=== PATIENT | male | born 1990 | race Hispanic/Latino ===

== ENCOUNTER 2018-01-17 10:03 | Emergency (ER) | payer MEDICAID ==
[2018-01-17 10:19] VITALS: BP 147/75; PULSE 71; RESP 20; TEMP 98; O2SAT 99
[2018-01-17 14:05] VITALS: BMI 30.2
--- NOTE | 2018-01-17 18:13 | C.PDOC ---
History Of Present Illness Pt was called 3times at different area of ED without answer. Left prior to medical evaluation. Time Seen by Provider: 01/17/18 10:33 Chief Complaint (Nursing): High Blood Pressure Past Medical History Vital Signs: Last Vital Signs Temp 98.0 F 01/17/18 10:14 Pulse 71 01/17/18 10:14 Resp 20 01/17/18 10:14 BP 147/75 01/17/18 10:14 Pulse Ox 99 01/17/18 10:14 - Medical History PMH: HTN Family History: States: Unknown Family Hx - Social History Hx Alcohol Use: Yes Hx Substance Use: Yes - Immunization History Hx Tetanus Toxoid Vaccination: Yes Hx Influenza Vaccination: No Hx Pneumococcal Vaccination: No ED Course And Treatment O2 Sat by Pulse Oximetry: 99 Disposition - Disposition Disposition Time: 10:50 Condition: GOOD - Clinical Impression Clinical Impression: HTN (hypertension)
== END 2018-01-17 10:33 | disposition left against medical advice (07) ==
LOC: C.ER 10:03
DX: Z02.89 Encounter for other administrative examinations (principal); I10 Essential (primary) hypertension

== ENCOUNTER 2018-01-17 13:48 | Inpatient (IN) | payer MEDICAID ==
[2018-01-17 14:05] VITALS: BMI 30.2
--- NOTE | 2018-01-17 14:10 | C.PDOC ---
History Of Present Illness 27 y/o male brought to ED by EMS for evaluation of Suicidal Ideation. At ED patient is refusing to provide additional information and reports he has psychiatric history. Patient admits to daily PCP and Marijuana use. He reports that he has a hx of kidney problems but does not follow-up. Patient currently denies SI/HI or any somatic complaints at this time. Time Seen by Provider: 01/17/18 13:52 Chief Complaint (Nursing): Psychiatric Evaluation History Per: Patient History/Exam Limitations: no limitations Onset/Duration Of Symptoms: Hrs Current Symptoms Are (Timing): Still Present Suicide/Self Injury Attempted (Context): None Modifying Factor(s): Marijuana Associated Symptoms: Suicidal Thoughts Past Medical History Reviewed: Historical Data, Nursing Documentation, Vital Signs Vital Signs: Last Vital Signs Temp 98.1 F 01/17/18 14:03 Pulse 67 01/17/18 14:03 Resp 18 01/17/18 14:03 BP 156/114 H 01/17/18 14:03 Pulse Ox 100 01/17/18 17:49 - Medical History PMH: HTN Surgical History: No Surg Hx Family History: States: No Known Family Hx - Social History Hx Alcohol Use: Yes Hx Substance Use: Yes - Immunization History Hx Tetanus Toxoid Vaccination: Yes Hx Influenza Vaccination: No Hx Pneumococcal Vaccination: No Review Of Systems Review Of Systems: ROS cannot be obtained secondary to pt's inabilty to answer questions. Constitutional: Negative for: Fever, Chills Cardiovascular: Negative for: Chest Pain, Palpitations Respiratory: Negative for: Cough, Shortness of Breath, SOB with Excertion, Wheezing Gastrointestinal: Negative for: Nausea, Vomiting, Abdominal Pain, Diarrhea, Constipation Neurological: Negative for: Weakness, Numbness Psych: Positive for: Suicidal ideation. Negative for: Anxiety, Depression Physical Exam - Physical Exam Appears: Non-toxic, Agitated Skin: Warm, Dry, No Rash Head: Atraumatic, Normacephalic Eye(s): bilateral: Normal Inspection Oral Mucosa: Moist Neck: Normal ROM, Supple Cardiovascular: Rhythm Regular Respiratory: Normal Breath Sounds, No Rales, No Rhonchi, No Wheezing Gastrointestinal/Abdominal: Soft, No Tenderness, No Guarding, No Rebound Extremity: Normal ROM, Capillary Refill (<2 seconds) Neurological/Psych: Oriented x3, Normal Speech, Normal Cognition ED Course And Treatment - Laboratory Results Result Diagrams: 01/17/18 14:25 01/17/18 14:25 O2 Sat by Pulse Oximetry: 100 (RA) Pulse Ox Interpretation: Normal Medical Decision Making Medical Decision Making: Patient placed on 1:1 for suicidal ideation Plan: Medical clearance, Crisis consult pending EKG shows NSR at 66bpm with non-specific st changes. Creatinine elevated. GFR: 21 5:10PM Records reviewed from [facility] where patient signed out AMA on 01/12. Bun/creatinine of 38/3.9 then. He signed out AMA prior to full workup. U/s showed chronic kidney disease. Will need medical admission for renal failure with psych on consult. Still pending UA. 5:58PM Resident at bedside evaluating. Disposition - Disposition Disposition: HOSPITALIZED Disposition Time: 17:11 Condition: FAIR - Clinical Impression Clinical Impression: Suicidal ideation, Renal failure - Scribe Statement The provider has reviewed the documentation as recorded by the Scribshaun Wilson All medical record entries made by the Tishaibshaun were at my direction and personally dictated by me. I have reviewed the chart and agree that the record accurately reflects my personal performance of the history, physical exam, medical decision making, and the department course for this patient. I have also personally directed, reviewed, and agree with the discharge instructions and disposition.
--- NOTE | 2018-01-17 14:23 | RAD ---
HISTORY: psych COMPARISON: No prior. FINDINGS: LUNGS: Poor inspiration with low lung volumes, crowded bronchovascular markings and mild bibasilar atelectasis. PLEURA: No significant pleural effusion identified, no pneumothorax apparent. CARDIOVASCULAR: Cardiomegaly. OSSEOUS STRUCTURES: No significant abnormalities. VISUALIZED UPPER ABDOMEN: Normal. OTHER FINDINGS: None. IMPRESSION: Poor inspiration with low lung volumes, crowded bronchovascular markings and mild bibasilar atelectasis.
[2018-01-17 14:30] LABS: BASO # 0.1 K/uL (0.0-0.2); BASO % 1.1 % (0.0-2.0); EOS # 0.3 K/uL (0.0-0.7); EOS % 4.3 % (0.0-4.0); HEMOGLOBIN 13.1 g/dL (12.0-18.0); LYMPH # 2.3 K/uL (1.0-4.3); LYMPH % 30.4 % (20.0-40.0); MEAN CELL VOLUME 89.7 fL (80.0-94.0); MEAN CORPUSCULAR HEMOGLOBIN 30.2 pg (27.0-31.0); MEAN CORPUSCULAR HGB CONC 33.7 g/dL (33.0-37.0); MEAN PLATELET VOLUME 10.9 fL (7.2-11.7); MONO # 0.6 K/uL (0.0-0.8); MONO % 8.1 % (0.0-10.0); NEUT # 4.2 K/uL (1.8-7.0); NEUT % 56.1 % (50.0-75.0); RBC 4.33 Mil/uL (4.40-5.90); RED CELL DISTRIBUTION WIDTH 13.1 % (11.5-14.5); WHITE BLOOD COUNT 7.6 K/uL (4.8-10.8)
[2018-01-17 14:45] LABS: ALBUMIN 3.5 g/dL (3.5-5.0); BLOOD UREA NITROGEN 42 mg/dL (9-20); CALCIUM 8.8 mg/dl (8.6-10.4); GFR AFRICAN-AMERICAN 25; GFR NON-AFRICAN AMERICAN 21
[2018-01-17 14:46] LABS: ALT/SGPT 29 U/L (21-72); AST/SGOT 29 U/L (17-59)
[2018-01-17] MEDS: Sodium Chloride 0.9% 1,000 ML IV SCH (19:00)
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
[2018-01-17 23:24] VITALS: O2SAT 98
[2018-01-18] MEDS: Sodium Chloride 0.9% 1,000 ML IV SCH ×2 (04:00→14:11)
[2018-01-18 07:28] LABS: GRANULAR CAST 6 /lpf (0-1); URINE BILIRUBIN NEGATIVE (NEGATIVE); URINE BLOOD 1+ (NEGATIVE); URINE CLARITY Clear (Clear); URINE COLOR Straw (YELLOW); URINE GLUCOSE (UA) 1+ mg/dL (Normal); URINE LEUKOCYTE ESTERASE NEG Leu/uL (Negative); URINE PROTEIN 3+ mg/dL (NEGATIVE); URINE UROBILINOGEN NORMAL mg/dL (0.2-1.0)
--- NOTE | 2018-01-18 09:39 | CP.PCM.PCO ---
Physician Communication Note - Physician Communication Note Physician Communication Note: Pt refused to wake up at 8:45 am. Entry Level Civil Engineer will return.
[2018-01-18 10:10] VITALS: RESP 20
--- NOTE | 2018-01-18 12:13 | PCM.PSYCH ---
Initial Psychiatric Evaluation - Initial Psychiatric Evaluation Type of Admission: Voluntary Legal Status: Capacity Chief Complaint (in patient's own words): "Not well" History of Present Illness and Precipitating Events: Note: This patient was admitted to [facility] on 01/14/18, and he signed out AMA. Medical records is informed to combining the charts. The patient is seen this morning, all medical records reviewed and case discussed Consultation was requested for patient's psychiatric history and behavior. He is a poor historian; very irate, uncooperative, at times hostile and evasive. However, he is calmer than yesterday as he was able to complete the assessment and he even agreed with blood work which she had refused this morning. 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 The patient was recently at [facility] where he was diagnosed with kidney failure and he was also having psychiatric problems; agitation, suicidal ideation and heavy PCP and cannabis use. He was screened by Medical Center when he asked to leave AMA and rejected by the Medical Center and he left. According to his grandmother, he came home and continued to use drugs and got more paranoid and agitated. He threatened suicide and she called 911 again and he was brought in to [facility]. Here, the pt was agitated, argumentative, refused some treatments but admitted to medicine. He also voiced SI again and placed on suicide watch 1:1. Please see chart for details This morning, he was in a slightly better mood and denied SI, however, he admitted that he was hearing voices before he came, and is still feeling depressed. He plans to "look for another job" when he gets back home and denies any plans/intentions to hurt himself. He admits to drinking alcohol, "my grandmother's alcohol" on and off (denies wdw sx) but smokes PCP and MJ "a lot" and seems to minimize their risks. He was able to hear out from the automatic typewriter inspector. He is still somewhat paranoid and angry but agreed to take ativan and seroquel to deal with that. Past psych hx: Admitted to [facility] previously and another hospital in the past. He has atempted suicide once by hanging but he reprted thathis intention was not to . Long hx of PCP, Mj and sometimes other drug use. Medical hx: Obese, high cholesterol, recent kidney failre (he was taking "many" naproxens for "pain") Family psych hx: unknown Current Medications: Active Medications Generic Name Dose Route Start Last Admin Trade Name Freq PRN Reason Stop Dose Admin Amlodipine Besylate 5 mg 01/18/18 10:00 01/18/18 10:14 Norvasc PO 5 mg DAILY HERNAN Administration Haloperidol 5 mg 01/17/18 22:45 Haldol PO Q4H PRN Agitation Haloperidol Lactate 5 mg 01/17/18 19:09 Haldol IM ONCE PRN Agitation Haloperidol Lactate 5 mg 01/17/18 22:30 Haldol IM Q4H PRN severe agitation Sodium Chloride 1,000 mls @ 100 mls/hr 01/17/18 18:00 01/18/18 04:00 Sodium Chloride 0.9% IV Not Given .Q10H HERNAN Lorazepam 2 mg 01/17/18 22:45 Ativan PO Q4H PRN severe anxiety Lorazepam 1 mg 01/18/18 12:00 Ativan PO TID HERNAN Pneumococcal Polyvalent Vaccine 0.5 ml 01/19/18 10:00 Pneumovax 23 Vaccine IM 01/19/18 10:01 .ONCE ONE Quetiapine Fumarate 50 mg 01/18/18 12:00 Seroquel PO TID HERNAN Quetiapine Fumarate 100 mg 01/18/18 22:00 Seroquel PO HS HERNAN Past Psychiatric History - Past Psychiatric History Previous Treatment History: Inpatient Pertinent Medical Hx (Current Medical&Sleep Prob, Allergies): Allergies Allergy/AdvReac Type Severity Reaction Status Date / Time No Known Allergies Allergy Unverified 01/17/18 10:19 Unobtainable 01/17/18 Review of Systems - Neurological Neurological: UNREMARKABLE - Psychiatric Psychiatric: Abnormal Sleep Pattern, Anxiety, Auditory Hallucinations, Behavioral Changes, Depression, Difficulty Concentrating, Irritability, Mood Swings, Paranoia. absent: Homicidal Ideation, Suicidal Ideation Mental Status Examination - Personal Presentation Personal Presentation: Looks older than stated age (very irritable, at times hostile, obese, tattooed male) - Affect Affect: Other (intense at times) - Motor Activity Motor Activity: Psychomotor Agitation (mild) - Reliability in Providing Information Reliability in Providing Information: Fair - Speech Speech: Organized - Mood Mood: Depressed, Anxious, Other (irate) - Formal Thought Process Formal Thought Process: Hallucinations (vague), Paranoia - Cognitive Functions Orientation: Person, Place, Situation, Time Sensorium: Drowsy Attention/Concentration: Easily distracted Abstract Thinking: [place] Estimate of Intelligence: Average Judgement: Imparied, as evidence by: Poor judgement (refusing blood work, vitals ) Memory: Recent intact, as evidence by: Ability to recall events of the day, Remote impaired as evidenced by: Inability to recall sig life events - Risk Risk: Diminished functioning - Strength & Assets Inventory Strength & Assets Inventory: Family support - Limitations Limitations: Other DSM 5 DX - DSM 5 DSM 5 Diagnosis: PCP-induced mood disorder PCP use d/o- severe Cannabis use d/o- severe Borderline/Antisocial Personality d/o Major Depressive d/o - Recommended/Plan of Treatment Treatment Recommendations and Plan of Treatment: Ativan for PCP-induced agitation, irritability and anxiety Seroquel for hallucinations, agitation and depressive sxs Continue 1:1 for now due to pt's recent elevated risk of suicide, he may be off 1:1 end of today or tomorrow AM He has the capacity to make medical decisions, i.e. refusing blood work, but he agreed to try ("I hate needles" he said, and has poor veins) - Nurse is informed to get a better flebotomist if possible. Risks of non-compliance discussed Support and psychoed given May need to be transferred to psych if he agrees and when he is medically cleared. If he is discharged, he can attend [facility] in [place] 34 min
[2018-01-18 14:28] LABS: BASO # 0.1 K/uL (0.0-0.2); BASO % 0.7 % (0.0-2.0); EOS # 0.3 K/uL (0.0-0.7); EOS % 3.7 % (0.0-4.0); HEMOGLOBIN 12.6 g/dL (12.0-18.0); LYMPH # 1.8 K/uL (1.0-4.3); LYMPH % 24.9 % (20.0-40.0); MEAN CELL VOLUME 89.7 fL (80.0-94.0); MEAN CORPUSCULAR HEMOGLOBIN 30.6 pg (27.0-31.0); MEAN CORPUSCULAR HGB CONC 34.1 g/dL (33.0-37.0); MEAN PLATELET VOLUME 11.2 fL (7.2-11.7); MONO # 0.5 K/uL (0.0-0.8); MONO % 7.7 % (0.0-10.0); NEUT # 4.4 K/uL (1.8-7.0); RBC 4.13 Mil/uL (4.40-5.90); RED CELL DISTRIBUTION WIDTH 13.4 % (11.5-14.5)
[2018-01-18 14:42] LABS: ALBUMIN 3.4 g/dL (3.5-5.0); CALCIUM 8.5 mg/dl (8.6-10.4)
--- NOTE | 2018-01-18 16:01 | CP.PCM.PN ---
Subjective - Date & Time of Evaluation Date of Evaluation: 01/18/18 Time of Evaluation: 15:57 - Subjective Subjective: Patient seen and examined at bedside. Refuses to speak with me refuses treatment at this time Dr. Crane for psych saw patient and ok with transferring patient to psych Dr. Newman saw patient and states ok with outpatient follow up in his office Medically stable for transfer to psych Objective - Vital Signs/Intake and Output Vital Signs (last 24 hours): Temp Pulse Resp BP Pulse Ox 98.5 F 62 20 167/98 H 98 01/18/18 08:00 01/18/18 08:00 01/18/18 08:00 01/18/18 08:00 01/18/18 08:00 Intake and Output: 01/18/18 01/18/18 06:59 18:59 Intake Total 150 Balance 150 - Medications Medications: Current Medications Amlodipine Besylate (Norvasc) 5 mg PO DAILY [facility] Last Admin: 01/18/18 10:14 Dose: 5 mg Haloperidol (Haldol) 5 mg PO Q4H PRN PRN Reason: Agitation Haloperidol Lactate (Haldol) 5 mg IM ONCE PRN PRN Reason: Agitation Haloperidol Lactate (Haldol) 5 mg IM Q4H PRN PRN Reason: severe agitation Sodium Chloride (Sodium Chloride 0.9%) 1,000 mls @ 100 mls/hr IV .Q10H [facility] Last Admin: 01/18/18 14:11 Dose: Not Given Lorazepam (Ativan) 2 mg PO Q4H PRN PRN Reason: severe anxiety Lorazepam (Ativan) 1 mg PO TID [facility] Last Admin: 01/18/18 14:09 Dose: 1 mg Pneumococcal Polyvalent Vaccine (Pneumovax 23 Vaccine) 0.5 ml IM .ONCE ONE Stop: 01/19/18 10:01 Quetiapine Fumarate (Seroquel) 50 mg PO TID [facility] Last Admin: 01/18/18 14:09 Dose: 50 mg Quetiapine Fumarate (Seroquel) 100 mg PO HS [facility] - Labs Labs: 01/18/18 14:14 01/18/18 14:14 - Additional Findings Additional findings: did not allow for physical exam Assessment and Plan (1) Phencyclidine-induced mood disorder Status: Acute (2) Phencyclidine (PCP) use disorder, moderate Status: Acute (3) Cannabis use disorder, mild, abuse Status: Acute (4) Major depressive disorder Status: Acute (5) Borderline personality disorder Status: Acute (6) Antisocial personality disorder Status: Acute
[2018-01-18 16:19] VITALS: BP 128/80; PULSE 59; TEMP 98.6
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
--- NOTE | 2018-01-19 02:05 | CON ---
DATE: 01/18/2018. NEPHROLOGY CONSULTATION HISTORY OF PRESENT ILLNESS: The patient is a 27-year-old male with past medical history of hypertension, CKD (recently diagnosed), ADHD, longstanding substance abuse presented today after having suicidal ideation; Nephrology being consulted for renal insufficiency. Upon interviewing the patient as to why he presented, he responds by saying to the effect that same reason as always; otherwise the patient's main complaint right now is left foot particularly his big toe pain; the patient otherwise denies any shortness of breath, no nausea, vomiting or diarrhea; history is otherwise difficult to obtain from patient. PAST MEDICAL HISTORY: As above. The patient admitted to [facility] last week after presenting with left upper arm pain; found to have advanced renal insufficiency; complete workup was not done as the patient signed AMA. FAMILY HISTORY: Hypertension. SOCIAL HISTORY: Using PCP since age 14. REVIEW OF SYSTEMS: Limited. The patient is a poor historian. PHYSICAL EXAMINATION: VITAL SIGNS: Blood pressure this morning 167/98, heart rate 62, respirations 20, temperature 98.5, O2 saturation 98% on room air. GENERAL: No distress. Conversing coherently in full sentences. HEENT: Large neck circumference; otherwise no cervical lymphadenopathy. Moist mucous membranes. Nonicteric. RESPIRATORY: Lungs clear to auscultation bilaterally. No rales or rhonchi. No wheezes. CARDIOVASCULAR: Heart sounds S1, S2 normal. No murmurs or gallops. No rubs. GI: Abdomen is soft, nontender and nondistended. : No bladder dysfunction. EXTREMITIES: No leg edema. MUSCULOSKELETAL: Left large toe pain with no obvious swelling or erythema. SKIN: Warm. No cyanosis. Multiple tattoos. PSYCHIATRIC: Not agitated. NEUROLOGIC: No asterixis. LABORATORY DATA: Today CBC; WBC 7.0, hemoglobin 12.6, hematocrit 37.0, platelets 211. Chemistry panel; sodium 139, potassium 4.6, chloride 103, bicarbonate 24, BUN 38, creatinine 3.1 decreased from 4.0 last week, calcium 8.5, phosphorus 3.8, albumin 3.4, TSH 0.20, free T4 0.97. UA 3+ protein, 1+ blood, 10 rbcs per high power field, granular cast 6. Renal ultrasound from last week showing increased echogenicity bilaterally of renal cortices. ASSESSMENT AND PLAN: 1. Acute kidney injury on chronic kidney disease. The patient with advanced chronic kidney disease of unclear etiology, proteinuric kidney disease with 3.8 gm albumin on albumin creatinine ratio; further serologic workup currently in progress; may be consistent with nephrotic syndrome as the patient has hypoalbuminemia and hyperlipidemia; serum creatinine this afternoon improved to 3.1, which is decreased from 4.1 seen on admission last week; UA making mention of granular cast; therefore, it is possible that the patient may have component of acute tubular necrosis that is causing acute kidney injury; however, renal ultrasound is clearly indicative of advanced chronic kidney disease. The patient needs renal biopsy; however, given the patient repeated noncompliance with followup and lack of cooperation for even blood testing pursuing biopsy does not seem feasible at this time; the patient advised that he needs to follow up in our clinic. 2. Hypertension, blood pressure fluctuating, currently on amlodipine 5 mg daily, continue the same, ideally should be on KARLO blockade; however, in light of the patient's lack of compliance with followup and need to monitor potassium levels, we will hold off for now. 3. Nephrotic syndrome, see above. A 24 hours urine protein collection in progress; see above regarding KARLO blockade; needs to be on statin as well; however, in light of persistent phencyclidine use, which itself can cause rhabdomyolysis, we will hold off on giving statin, which can also elevate CK level. 4. Substance abuse. The patient counseled on harms of phencyclidine use; needs extensive social help in this regard; as long as the patient continues current drug abuse pattern, renal workup is likely futile as the patient will not comply with immunosupressive therapy that may be needed. Thank you for this referral. We will continue to follow the patient. Adams Salas MD
[2018-01-19] MEDS ORDERED: Pneumococcal 23-Valent Vaccine IM ONE (10:00)
[2018-01-21 16:46] LABS: PROTEINASE-3 <1.0 AI (<1.0)
[2018-01-22 00:34] LABS: ALBUMIN (PEP) 3.1 g/dL (3.8-4.8); ALPHA-1-GLOBULIN (PEP) 0.3 g/dL (0.2-0.3)
== END 2018-01-18 20:09 | disposition home or self-care (01) | DRG 426 ==
LOC: C.ER 13:48 → C.9E 17:15 → C.3T 17:57
PROVIDERS: ADMIT Family Medicine; ATTEND Family Medicine
DX: F32.9 Major depressive disorder, single episode, unspecified (principal); N18.4 Chronic kidney disease, stage 4 (severe); F16.10 Hallucinogen abuse, uncomplicated; F60.2 Antisocial personality disorder; F12.10 Cannabis abuse, uncomplicated; E78.5 Hyperlipidemia, unspecified; F60.3 Borderline personality disorder; I12.9 Hypertensive chronic kidney disease with stage 1 through stage 4 chronic kidney disease, or unspecified chronic kidney disease; F90.9 Attention-deficit hyperactivity disorder, unspecified type; Z91.19 Patient's noncompliance with other medical treatment and regimen

== ENCOUNTER 2018-07-11 14:55 | Inpatient (IN) | payer MEDICAID ==
[2018-07-11 14:55] VITALS: BMI 30.2
--- NOTE | 2018-07-11 16:04 | C.PDOC ---
History Of Present Illness 28yo M with PMH CKD, HTN, ADHD, PCP use, marijuana use, EtOH use presents today for RUQ and chest pain. Both happened simultaneously and awoke him from his sleep this AM at 6. The RUQ pain at worse is 10/10. Episodes last a bout an hour at a time and come back after 10 min. It's a stabbing pain that radiates to his side, without radiation to the back. The CP is a 6/10 but localizes to the epigastric region. Poor historian as when asked during the same interview, retracts radiation to the back. The pressure is assoc with SOB, KISER, tinnitus, blurry vision, double vision, sweating. Hasn't taken any antihypertensive medication. Last PCP use was this AM prior to coming to hospital. Last BM this AM - formed. Cannot recall last meal. Admits daily PCP use (a jar), daily EtOH (1 gallon of Heineken), daily tobacco (1 ppd). Denies doing anything out of the norm for the last week. Denies current SI/HI, AVH. FamHx: HTN All: Fish - edema Hx of signing out AMA from [facility] earlier this year <Snow Maldonado - Last Filed: 07/11/18 17:04> <Snow Maldonado - Last Filed: 07/11/18 17:04> <Sandra Mohan - Last Filed: 07/11/18 18:47> Time Seen by Provider: 07/11/18 15:25 Chief Complaint (Nursing): Chest Pain Past Medical History Vital Signs: Last Vital Signs Temp 98 F 07/11/18 15:03 Pulse 79 07/11/18 15:03 Resp 20 07/11/18 15:03 BP 193/149 H 07/11/18 15:03 Pulse Ox 98 07/11/18 15:03 - Medical History PMH: HTN - Social History Hx Tobacco Use: Yes Hx Alcohol Use: Yes Hx Substance Use: Yes - Immunization History Hx Tetanus Toxoid Vaccination: Yes Hx Influenza Vaccination: No Hx Pneumococcal Vaccination: No <Snow Maldonado - Last Filed: 07/11/18 17:04> Vital Signs: Last Vital Signs Temp 98 F 07/11/18 15:03 Pulse 76 07/11/18 15:33 Resp 21 07/11/18 15:33 BP 187/118 H 07/11/18 15:33 Pulse Ox 98 07/11/18 16:54 Family History: States: No Known Family Hx <Sandra Mohan - Last Filed: 07/11/18 18:47> Review Of Systems Except As Marked, All Systems Reviewed And Found Negative. Constitutional: Positive for: Chills, Sweats. Negative for: Fever Eyes: Positive for: Vision Change Cardiovascular: Positive for: Chest Pain, Edema (bilateral pedal edema, does not extend to ankles). Negative for: Palpitations Respiratory: Positive for: Shortness of Breath. Negative for: Hemoptysis, Pleuritic Pain, Wheezing Gastrointestinal: Positive for: Abdominal Pain. Negative for: Nausea, Vomiting, Diarrhea, Constipation, Melena, Hematochezia Genitourinary: Positive for: Dysuria. Negative for: Frequency, Incontinence, Hematuria Psych: Negative for: Suicidal ideation <Snow Maldonado - Last Filed: 07/11/18 17:04> Physical Exam - Physical Exam Appears: Toxic, Unkempt Skin: Dry, Pale Head: Atraumatic, Normacephalic Eye(s): bilateral: PERRL, EOMI Neck: Trachea Midline Cardiovascular: Rhythm Regular, Rhythm Irregular, No Murmur Respiratory: Normal Breath Sounds, No Rales, No Rhonchi, No Wheezing Gastrointestinal/Abdominal: Bowel Sounds, Soft, Tenderness (TTP RUQ), Distention, Guarding, No Rebound, Other (obese) Pulses: Left Radial: Normal, Right Radial: Normal, Left Dorsalis Pedis: Normal, Right Dorsalis Pedis: Normal DTR: Bicep (R): 2+, Bicep (L): 2+, Knee (R): 2+, Knee (L): 2+ Neurological/Psych: Oriented x3, No Normal Cognition (under the influence, flight of ideas), Slow To Respond With Command Disoriented To: Time <Snow Maldonado - Last Filed: 07/11/18 17:04> ED Course And Treatment - Laboratory Results Result Diagrams: 07/11/18 16:15 07/11/18 16:15 O2 Sat by Pulse Oximetry: 98 <Snow Maldonado - Last Filed: 07/11/18 17:04> - Laboratory Results Result Diagrams: 07/11/18 16:15 07/11/18 16:15 <Sandra Mohan - Last Filed: 07/11/18 18:47> Medical Decision Making Medical Decision Making: CBC, CMP, lipase, TIGIST anemia - Hgb 9.4 (decreased from d/c 12.6) metabolic acidosis - anion gap 22 BUN/Cr - 84/9.3 (elevated from d/c 38/3.1) UDS, UA EKG - new T wave inversions on III, aVF CXR PA/L US Abd Toradol for pain control Pepcid for GI ppx Lisinopril for HTN will hold IVF until HTN controlled Re-eval: BP 152/85, resting comfortably, snoring s/p US <Snow Maldonado - Last Filed: 07/11/18 17:04> Medical Decision Making: Patient seen by the resident and then evaluated by me. Patient presenting with epigastric pain. Epigastric tenderness on exam. U/s shows Echogenic liver may be seen in setting of hepatic parenchymal disease or fatty infiltration. 0.8 x 0.7 x 0.9 cm indeterminate echogenic lesion, right hepatic lobe. Echogenic right renal parenchyma, may be seen in the setting of medical renal disease. 1.2 x 0.9 x 1.0 cm lower pole renal cyst. Labs show worsening renal function. EKG shows new t wave inversions in III, AVF. Patient is non-compliant with BP medication. BP improved after ED dose. Will need admission under Dr. Hendrickson with nephrology consult. <Sandra Mohan - Last Filed: 07/11/18 18:47> Disposition <Snow Maldonado - Last Filed: 07/11/18 17:04> - Disposition Disposition Time: 17:53 <Sandra Mohan - Last Filed: 07/11/18 18:47> - Disposition Disposition: HOSPITALIZED Condition: FAIR - Clinical Impression Clinical Impression: Anemia, MK (acute kidney injury), Acute electrocardiogram changes, Hypertension - PA / APPLIED BEHAVIOR SPECIALIST / Resident Statement / has reviewed & agrees with the documentation as recorded. / has examined the patient and agrees with the treatment plan. <Snow Maldonado - Last Filed: 07/11/18 17:04>
[2018-07-11 16:18] LABS: BASO # 0.1 K/uL (0.0-0.2); BASO % 1.3 % (0.0-2.0); EOS # 0.3 K/uL (0.0-0.7); EOS % 3.9 % (0.0-4.0); HEMOGLOBIN 9.4 g/dL (12.0-18.0); LYMPH # 2.1 K/uL (1.0-4.3); MEAN CELL VOLUME 88.5 fL (80.0-94.0); MEAN CORPUSCULAR HEMOGLOBIN 31.6 pg (27.0-31.0); MEAN CORPUSCULAR HGB CONC 35.7 g/dL (33.0-37.0); MEAN PLATELET VOLUME 9.4 fL (7.2-11.7); MONO # 0.8 K/uL (0.0-0.8); MONO % 8.8 % (0.0-10.0); NEUT # 5.3 K/uL (1.8-7.0); NRBC % 0.1 % (0.0-2.0); RBC 2.99 Mil/uL (4.40-5.90); RED CELL DISTRIBUTION WIDTH 13.4 % (11.5-14.5); WHITE BLOOD COUNT 8.6 K/uL (4.8-10.8)
[2018-07-11 16:41] LABS: CK-MB 0.82 ng/mL (0.0-3.38)
[2018-07-11 16:47] LABS: ALB/GLOB RATIO 1.2 (1.0-2.1); ALBUMIN 3.9 g/dL (3.5-5.0); ALT/SGPT 20 U/L (21-72); AST/SGOT 8 U/L (17-59); BLOOD UREA NITROGEN 84 mg/dL (9-20); CALCIUM 7.4 mg/dl (8.6-10.4); GFR NON-AFRICAN AMERICAN 7; LIPASE 132 U/L (23-300)
--- NOTE | 2018-07-11 17:07 | US ---
Date of service: 07/11/2018 HISTORY: RUQ pain COMPARISON: None available TECHNIQUE: Sonographic evaluation of the right upper quadrant of the abdomen. FINDINGS: LIVER: Measures 16.7 cm in length. Echogenic liver may be seen in setting of hepatic parenchymal disease or fatty infiltration. 0.8 x 0.7 x 0.9 cm echogenic lesion, right hepatic lobe. The main portal vein appears patent with normal directional flow. No intrahepatic bile duct dilatation. GALLBLADDER: No gallstones. No gallbladder wall thickening or pericholecystic edema. Negative sonographic Rea's sign as assessed by the clinic coordinator. COMMON BILE DUCT: Measures 3 mm. PANCREAS: Not well-visualized. RIGHT KIDNEY: Measures 9.2 x 4.9 x 4.7 cm. Echogenic renal parenchyma. No obstructing calculus or hydronephrosis identified. 1.2 x 0.9 x 1.0 cm lower pole renal cyst. AORTA: Limited visualization appears grossly unremarkable. IVC: Limited visualization appears grossly unremarkable. OTHER FINDINGS: None . IMPRESSION: Echogenic liver may be seen in setting of hepatic parenchymal disease or fatty infiltration. 0.8 x 0.7 x 0.9 cm indeterminate echogenic lesion, right hepatic lobe. Echogenic right renal parenchyma, may be seen in the setting of medical renal disease. 1.2 x 0.9 x 1.0 cm lower pole renal cyst.
--- NOTE | 2018-07-11 17:40 | RAD ---
Date of service: 07/11/2018 HISTORY: CP, SOB COMPARISON: 01/17/2018 TECHNIQUE: Chest PA and lateral FINDINGS: LUNGS: No active pulmonary disease. PLEURA: No significant pleural effusion identified. No pneumothorax apparent. CARDIOVASCULAR: Normal. OSSEOUS STRUCTURES: No significant abnormalities. VISUALIZED UPPER ABDOMEN: Normal. OTHER FINDINGS: None. IMPRESSION: No acute cardiopulmonary pathology. No interval worrisome pathology noted
[2018-07-11 18:41] LABS: URINE AMORPHOUS SEDIMENT RARE /ul (<OCC); URINE BACTERIA OCC (<OCC); URINE BILIRUBIN NEGATIVE (NEGATIVE); URINE BLOOD 1+ (NEGATIVE); URINE CLARITY Clear (Clear); URINE COLOR Yellow (YELLOW); URINE GLUCOSE (UA) 1+ mg/dL (Normal); URINE LEUKOCYTE ESTERASE NEG Leu/uL (Negative); URINE PROTEIN 3+ mg/dL (NEGATIVE); URINE UROBILINOGEN NORMAL mg/dL (0.2-1.0)
[2018-07-11 18:52] LABS: BARBITURATES, UR NEGATIVE (NEGATIVE); BENZODIAZEPINES, UR NEGATIVE (NEGATIVE); OPIATES, UR NEGATIVE (NEGATIVE); PHENCYCLIDINE, UR POSITIVE (NEGATIVE)
[2018-07-11] MEDS: Sodium Chloride 0.9% 1,000 ML IV SCH (22:41)
[2018-07-12] MEDS: Sodium Chloride 0.9% 1,000 ML IV SCH (06:54)
[2018-07-12 07:30] LABS: HEMOGLOBIN 9.1 g/dL (12.0-18.0); MEAN CORPUSCULAR HEMOGLOBIN 30.9 pg (27.0-31.0); MEAN CORPUSCULAR HGB CONC 34.1 g/dL (33.0-37.0); MEAN PLATELET VOLUME 10.2 fL (7.2-11.7); RBC 2.95 Mil/uL (4.40-5.90); RED CELL DISTRIBUTION WIDTH 13.7 % (11.5-14.5); WHITE BLOOD COUNT 7.6 K/uL (4.8-10.8)
[2018-07-12 07:38] LABS: MEAN CELL VOLUME 90.6 fL (80.0-94.0)
[2018-07-12 08:11] LABS: FREE T4 0.75 ng/dL (0.78-2.19)
[2018-07-12 08:12] LABS: ALB/GLOB RATIO 1.1 (1.0-2.1); ALBUMIN 3.6 g/dL (3.5-5.0); CALCIUM 7.7 mg/dl (8.6-10.4)
--- NOTE | 2018-07-12 12:14 | CP.PCM.CON ---
History of Present Illness - History of Present Illness History of Present Illness: 28yo M with PMH CKD, HTN, ADHD, PCP use, marijuana use, EtOH use presents today for RUQ and chest pain. Admits daily PCP use (a jar), daily EtOH (1 gallon of [employer]ineken), daily tobacco (1 ppd). On admission creatinine elevated to 9, previously mid 3s earlier this year. Pt denies any hematuria dysuria decreased uop recently has not seen any car seat coverer previously, not aware of kidney disease not taking his bp meds as scheduled family hx: neg for kidney dz in family soc hx: as stated in HPI ROS: a 10 point ROS was obtained and negative except - chest pain w/ deep breathing or coughing left leg pain All: Fish - edema Past Patient History - Infectious Disease Hx of Infectious Diseases: None - Past Medical History & Family History Past Medical History?: Yes - Past Social History Smoking Status: Heavy Smoker > 10 Cigarettes Daily - CARDIAC Hx Cardiac Disorders: Yes Hx Hypertension: Yes - PULMONARY Hx Respiratory Disorders: Yes Hx Asthma: Yes - NEUROLOGICAL Hx Neurological Disorder: Yes Other/Comment: traumatic head injury - HEENT Hx HEENT Problems: No - RENAL Other/Comment: "my kidneys are going to explode" "I have kidney failure" - ENDOCRINE/METABOLIC Hx Endocrine Disorders: No - HEMATOLOGICAL/ONCOLOGICAL Hx Blood Disorders: No - INTEGUMENTARY Hx Dermatological Problems: No - MUSCULOSKELETAL/RHEUMATOLOGICAL Hx Falls: No - GASTROINTESTINAL Hx Gastrointestinal Disorders: No - GENITOURINARY/GYNECOLOGICAL Hx Genitourinary Disorders: No - PSYCHIATRIC Hx Substance Use: Yes - SURGICAL HISTORY Hx Surgeries: Yes Other/Comment: LEFT HEAD SURGERY DUE TO INJURY - ANESTHESIA Hx Anesthesia: Yes Hx Anesthesia Reactions: No Hx Malignant Hyperthermia: No Meds Allergies/Adverse Reactions: Allergies Allergy/AdvReac Type Severity Reaction Status Date / Time FISH Allergy REDNESS Verified 07/11/18 20:55 - Medications Medications: Current Medications Amlodipine Besylate (Norvasc) 5 mg PO DAILY [facility] Last Admin: 07/12/18 09:12 Dose: 5 mg Heparin Sodium (Porcine) (Heparin) 5,000 units SC Q12 [facility] Last Admin: 07/12/18 09:12 Dose: 5,000 units Sodium Chloride (Sodium Chloride 0.9%) 1,000 mls @ 100 mls/hr IV .Q10H [facility] Last Admin: 07/12/18 06:54 Dose: Not Given Influenza Virus Vaccine (Fluzone Quad [id number]) 60 mcg IM .ONCE ONE Stop: 07/13/18 10:01 Pneumococcal Polyvalent Vaccine (Pneumovax 23 Vaccine) 0.5 ml IM .ONCE ONE Stop: 07/13/18 10:01 Physical Exam - Constitutional Appears: No Acute Distress (obese) - Head Exam Head Exam: NORMAL INSPECTION, NORMOCEPHALIC - Eye Exam Eye Exam: Normal appearance, PERRL Pupil Exam: PERRL - ENT Exam ENT Exam: Mucous Membranes Moist, Normal Exam - Neck Exam Neck exam: Positive for: Full Rom - Respiratory Exam Respiratory Exam: Clear to Auscultation Bilateral, NORMAL BREATHING PATTERN - Cardiovascular Exam Cardiovascular Exam: REGULAR RHYTHM, RRR - GI/Abdominal Exam GI & Abdominal Exam: Normal Bowel Sounds, Soft - Extremities Exam Extremities exam: Positive for: normal inspection, pedal edema - Back Exam Back exam: NORMAL INSPECTION - Neurological Exam Neurological exam: Alert, Oriented x3 - Psychiatric Exam Psychiatric exam: Normal Affect, Normal Mood - Skin Skin Exam: Dry, Intact, Normal Color Results - Vital Signs Recent Vital Signs: Last Vital Signs Temp 98.4 F 07/12/18 08:05 Pulse 72 07/12/18 08:05 Resp 20 07/12/18 08:05 BP 172/123 H 07/12/18 08:05 Pulse Ox 98 07/12/18 08:05 - Labs Result Diagrams: 07/12/18 07:00 07/12/18 07:00 Labs: Laboratory Results - last 24 hr 07/11/18 07/11/18 07/11/18 16:15 16:15 18:31 WBC 8.6 RBC 2.99 L Hgb 9.4 L D Hct 26.4 L MCV 88.5 MCH 31.6 H MCHC 35.7 RDW 13.4 Plt Count 231 MPV 9.4 Neut % (Auto) 62.0 Lymph % (Auto) 24.0 [place] % (Auto) 8.8 Eos % (Auto) 3.9 Baso % (Auto) 1.3 Neut # (Auto) 5.3 Lymph # (Auto) 2.1 [place] # (Auto) 0.8 Eos # (Auto) 0.3 Baso # (Auto) 0.1 Sodium 143 Potassium 4.9 Chloride 107 Carbon Dioxide 19 L Anion Gap 22 H BUN 84 H Creatinine 9.3 H* D Est GFR ( Amer) 8 Est GFR (Non-Af Amer) 7 Random Glucose 96 Hemoglobin A1c Calcium 7.4 L Total Bilirubin 0.4 AST 8 L D ALT 20 L Alkaline Phosphatase 92 Total Creatine Kinase 137 CK-MB (Mass) 0.82 Troponin I 0.0170 Total Protein 7.2 Albumin 3.9 Globulin 3.3 Albumin/Globulin Ratio 1.2 Triglycerides Cholesterol LDL Cholesterol Direct HDL Cholesterol Lipase 132 Free T4 TSH 3rd Generation Urine Color Urine Clarity Urine pH Ur Specific [place] Urine Protein Urine Glucose (UA) Urine Ketones Urine Blood Urine Nitrate Urine Bilirubin Urine Urobilinogen Ur Leukocyte Esterase Urine WBC (Auto) Urine RBC (Auto) Amorphous Sediment Urine Bacteria Urine Opiates Screen Negative Urine Methadone Screen Negative Ur Barbiturates Screen Negative Ur Phencyclidine Scrn Positive H Ur Amphetamines Screen Negative U Benzodiazepines Scrn Negative U Oth Cocaine Metabols Negative U Cannabinoids Screen Negative Alcohol, Quantitative < 10 07/11/18 07/12/18 07/12/18 18:31 07:00 07:00 WBC RBC Hgb Hct MCV MCH MCHC RDW Plt Count MPV Neut % (Auto) Lymph % (Auto) [place] % (Auto) Eos % (Auto) Baso % (Auto) Neut # (Auto) Lymph # (Auto) [place] # (Auto) Eos # (Auto) Baso # (Auto) Sodium 143 Potassium 5.3 H Chloride 109 H Carbon Dioxide 19 L Anion Gap 21 H BUN 87 H Creatinine 9.2 H* Est GFR ( Amer) 8 Est GFR (Non-Af Amer) 7 Random Glucose 112 H Hemoglobin A1c 5.4 Calcium 7.7 L Total Bilirubin 0.3 AST 9 L ALT 18 L Alkaline Phosphatase 76 Total Creatine Kinase CK-MB (Mass) Troponin I Total Protein 6.7 Albumin 3.6 Globulin 3.1 Albumin/Globulin Ratio 1.1 Triglycerides 734 H D Cholesterol 251 H LDL Cholesterol Direct 76 HDL Cholesterol 22 L Lipase Free T4 TSH 3rd Generation Urine Color Yellow Urine Clarity Clear Urine pH 5.0 Ur Specific [place] 1.010 Urine Protein 3+ H Urine Glucose (UA) 1+ H Urine Ketones Negative Urine Blood 1+ H Urine Nitrate Negative Urine Bilirubin Negative Urine Urobilinogen Normal Ur Leukocyte Esterase Neg Urine WBC (Auto) 6 H Urine RBC (Auto) 7 H Amorphous Sediment Rare H Urine Bacteria Occ H Urine Opiates Screen Urine Methadone Screen Ur Barbiturates Screen Ur Phencyclidine Scrn Ur Amphetamines Screen U Benzodiazepines Scrn U Oth Cocaine Metabols U Cannabinoids Screen Alcohol, Quantitative 07/12/18 07/12/18 07:00 07:00 WBC 7.6 RBC 2.95 L Hgb 9.1 L Hct 26.7 L MCV 90.6 D MCH 30.9 MCHC 34.1 RDW 13.7 Plt Count 233 MPV 10.2 Neut % (Auto) Lymph % (Auto) [place] % (Auto) Eos % (Auto) Baso % (Auto) Neut # (Auto) Lymph # (Auto) [place] # (Auto) Eos # (Auto) Baso # (Auto) Sodium Potassium Chloride Carbon Dioxide Anion Gap BUN Creatinine Est GFR ( Amer) Est GFR (Non-Af Amer) Random Glucose Hemoglobin A1c Calcium Total Bilirubin AST ALT Alkaline Phosphatase Total Creatine Kinase CK-MB (Mass) Troponin I Total Protein Albumin Globulin Albumin/Globulin Ratio Triglycerides Cholesterol LDL Cholesterol Direct HDL Cholesterol Lipase Free T4 0.75 L TSH 3rd Generation 1.36 Urine Color Urine Clarity Urine pH Ur Specific [place] Urine Protein Urine Glucose (UA) Urine Ketones Urine Blood Urine Nitrate Urine Bilirubin Urine Urobilinogen Ur Leukocyte Esterase Urine WBC (Auto) Urine RBC (Auto) Amorphous Sediment Urine Bacteria Urine Opiates Screen Urine Methadone Screen Ur Barbiturates Screen Ur Phencyclidine Scrn Ur Amphetamines Screen U Benzodiazepines Scrn U Oth Cocaine Metabols U Cannabinoids Screen Alcohol, Quantitative Assessment & Plan (1) MK (acute kidney injury) Status: Acute (2) Anemia Status: Acute (3) HTN (hypertension) Status: Acute (4) Cannabis use disorder, mild, abuse Status: Acute (5) Phencyclidine (PCP) use disorder, moderate Status: Acute (6) Renal failure Status: Acute - Assessment and Plan (Free Text) Assessment: # MK- ? htn urgency. cannot r/o atn, GN, obstructive uropathy # ckd 4 # htn, poorly controlled # drug use plan: renal US check hiv, hepatitis. tanmay, complements, anca, antigbm. needs TOW OPERATOR, consent obtained permcath placement plan for hd tomorrow am started on bp meds, monitor. check iron stores, pth phos one dose of kayexelate ordered, renal diet
[2018-07-12] MEDS ORDERED: Sod Polystyrene Sulf 15 gm/60 ml Susp PO ONE (13:04)
[2018-07-12 14:38] LABS: INR 1.1; PROTHROMBIN TIME 11.6 SECONDS (9.7-12.2)
--- NOTE | 2018-07-12 15:08 | CP.PCM.CON ---
History of Present Illness - History of Present Illness History of Present Illness: Surgery 28 M w ho drug abuse, HTN EtOH abuse came with back pain and abdominal pain. Pt was found to have elevated creatinin. Surgery is consulted to evaluate for HD catheter placement. Pt was unaware of renal failure. Denies fever, nausea, diarrhea. He took PCP 2 days ago. Has h/o HTN non compliant. Pt consented for permacath placement. PMH : HTN non compliant , PCP abuse, etOH abuse PSH : denies SS etOH abusea, drug abuse, lives with grandmother, unemployed Review of Systems - Review of Systems Review of Systems: See HPI Past Patient History - Infectious Disease Hx of Infectious Diseases: None - Past Medical History & Family History Past Medical History?: Yes - Past Social History Smoking Status: Heavy Smoker > 10 Cigarettes Daily - CARDIAC Hx Cardiac Disorders: Yes Hx Hypertension: Yes - PULMONARY Hx Respiratory Disorders: Yes Hx Asthma: Yes - NEUROLOGICAL Hx Neurological Disorder: Yes Other/Comment: traumatic head injury - HEENT Hx HEENT Problems: No - RENAL Other/Comment: "my kidneys are going to explode" "I have kidney failure" - ENDOCRINE/METABOLIC Hx Endocrine Disorders: No - HEMATOLOGICAL/ONCOLOGICAL Hx Blood Disorders: No - INTEGUMENTARY Hx Dermatological Problems: No - MUSCULOSKELETAL/RHEUMATOLOGICAL Hx Falls: No - GASTROINTESTINAL Hx Gastrointestinal Disorders: No - GENITOURINARY/GYNECOLOGICAL Hx Genitourinary Disorders: No - PSYCHIATRIC Hx Substance Use: Yes - SURGICAL HISTORY Hx Surgeries: Yes Other/Comment: LEFT HEAD SURGERY DUE TO INJURY - ANESTHESIA Hx Anesthesia: Yes Hx Anesthesia Reactions: No Hx Malignant Hyperthermia: No Meds Allergies/Adverse Reactions: Allergies Allergy/AdvReac Type Severity Reaction Status Date / Time FISH Allergy REDNESS Verified 07/11/18 20:55 - Medications Medications: Current Medications Acetaminophen (Tylenol 325mg Tab) 650 mg PO Q6 PRN PRN Reason: Pain, moderate (4-7) Last Admin: 07/12/18 14:54 Dose: 650 mg Amlodipine Besylate (Norvasc) 10 mg PO DAILY [facility] Heparin Sodium (Porcine) (Heparin) 5,000 units SC Q12 [facility] Last Admin: 07/12/18 09:12 Dose: 5,000 units Sodium Chloride (Sodium Chloride 0.9%) 1,000 mls @ 100 mls/hr IV .Q10H [facility] Last Admin: 07/12/18 06:54 Dose: Not Given Influenza Virus Vaccine (Fluzone Quad [id number]) 60 mcg IM .ONCE ONE Stop: 07/13/18 10:01 Pneumococcal Polyvalent Vaccine (Pneumovax 23 Vaccine) 0.5 ml IM .ONCE ONE Stop: 07/13/18 10:01 Physical Exam - Constitutional Appears: No Acute Distress - Head Exam Head Exam: ATRAUMATIC, NORMAL INSPECTION, NORMOCEPHALIC - Eye Exam Eye Exam: EOMI, Normal appearance, PERRL Pupil Exam: NORMAL ACCOMODATION, PERRL - ENT Exam ENT Exam: Mucous Membranes Moist, Normal Exam - Neck Exam Neck exam: Positive for: Normal Inspection - Respiratory Exam Respiratory Exam: NORMAL BREATHING PATTERN - Cardiovascular Exam Cardiovascular Exam: REGULAR RHYTHM - GI/Abdominal Exam GI & Abdominal Exam: Soft. absent: Tenderness - Extremities Exam Extremities exam: Positive for: normal inspection - Back Exam Back exam: NORMAL INSPECTION - Neurological Exam Neurological exam: Alert, CN II-XII Intact, Normal Gait, Oriented x3, Reflexes Normal - Psychiatric Exam Psychiatric exam: Normal Affect, Normal Mood - Skin Skin Exam: Dry, Intact, Normal Color, Warm Results - Vital Signs Recent Vital Signs: Last Vital Signs Temp 98.4 F 07/12/18 08:05 Pulse 72 07/12/18 08:05 Resp 20 07/12/18 08:05 BP 172/123 H 07/12/18 08:05 Pulse Ox 98 07/12/18 08:05 - Labs Result Diagrams: 07/12/18 07:00 07/12/18 07:00 Labs: Laboratory Results - last 24 hr 07/11/18 07/11/18 07/11/18 16:15 16:15 18:31 WBC 8.6 RBC 2.99 L Hgb 9.4 L D Hct 26.4 L MCV 88.5 MCH 31.6 H MCHC 35.7 RDW 13.4 Plt Count 231 MPV 9.4 Neut % (Auto) 62.0 Lymph % (Auto) 24.0 [place] % (Auto) 8.8 Eos % (Auto) 3.9 Baso % (Auto) 1.3 Neut # (Auto) 5.3 Lymph # (Auto) 2.1 [place] # (Auto) 0.8 Eos # (Auto) 0.3 Baso # (Auto) 0.1 PT INR APTT Sodium 143 Potassium 4.9 Chloride 107 Carbon Dioxide 19 L Anion Gap 22 H BUN 84 H Creatinine 9.3 H* D Est GFR ( Amer) 8 Est GFR (Non-Af Amer) 7 Random Glucose 96 Hemoglobin A1c Calcium 7.4 L Total Bilirubin 0.4 AST 8 L D ALT 20 L Alkaline Phosphatase 92 Total Creatine Kinase 137 CK-MB (Mass) 0.82 Troponin I 0.0170 Total Protein 7.2 Albumin 3.9 Globulin 3.3 Albumin/Globulin Ratio 1.2 Triglycerides Cholesterol LDL Cholesterol Direct HDL Cholesterol Lipase 132 Free T4 TSH 3rd Generation Urine Color Urine Clarity Urine pH Ur Specific [place] Urine Protein Urine Glucose (UA) Urine Ketones Urine Blood Urine Nitrate Urine Bilirubin Urine Urobilinogen Ur Leukocyte Esterase Urine WBC (Auto) Urine RBC (Auto) Amorphous Sediment Urine Bacteria Urine Opiates Screen Negative Urine Methadone Screen Negative Ur Barbiturates Screen Negative Ur Phencyclidine Scrn Positive H Ur Amphetamines Screen Negative U Benzodiazepines Scrn Negative U Oth Cocaine Metabols Negative U Cannabinoids Screen Negative Alcohol, Quantitative < 10 07/11/18 07/12/18 07/12/18 18:31 07:00 07:00 WBC RBC Hgb Hct MCV MCH MCHC RDW Plt Count MPV Neut % (Auto) Lymph % (Auto) [place] % (Auto) Eos % (Auto) Baso % (Auto) Neut # (Auto) Lymph # (Auto) [place] # (Auto) Eos # (Auto) Baso # (Auto) PT INR APTT Sodium 143 Potassium 5.3 H Chloride 109 H Carbon Dioxide 19 L Anion Gap 21 H BUN 87 H Creatinine 9.2 H* Est GFR ( Amer) 8 Est GFR (Non-Af Amer) 7 Random Glucose 112 H Hemoglobin A1c 5.4 Calcium 7.7 L Total Bilirubin 0.3 AST 9 L ALT 18 L Alkaline Phosphatase 76 Total Creatine Kinase CK-MB (Mass) Troponin I Total Protein 6.7 Albumin 3.6 Globulin 3.1 Albumin/Globulin Ratio 1.1 Triglycerides 734 H D Cholesterol 251 H LDL Cholesterol Direct 76 HDL Cholesterol 22 L Lipase Free T4 TSH 3rd Generation Urine Color Yellow Urine Clarity Clear Urine pH 5.0 Ur Specific [place] 1.010 Urine Protein 3+ H Urine Glucose (UA) 1+ H Urine Ketones Negative Urine Blood 1+ H Urine Nitrate Negative Urine Bilirubin Negative Urine Urobilinogen Normal Ur Leukocyte Esterase Neg Urine WBC (Auto) 6 H Urine RBC (Auto) 7 H Amorphous Sediment Rare H Urine Bacteria Occ H Urine Opiates Screen Urine Methadone Screen Ur Barbiturates Screen Ur Phencyclidine Scrn Ur Amphetamines Screen U Benzodiazepines Scrn U Oth Cocaine Metabols U Cannabinoids Screen Alcohol, Quantitative 07/12/18 07/12/18 07/12/18 07:00 07:00 14:20 WBC 7.6 RBC 2.95 L Hgb 9.1 L Hct 26.7 L MCV 90.6 D MCH 30.9 MCHC 34.1 RDW 13.7 Plt Count 233 MPV 10.2 Neut % (Auto) Lymph % (Auto) [place] % (Auto) Eos % (Auto) Baso % (Auto) Neut # (Auto) Lymph # (Auto) [place] # (Auto) Eos # (Auto) Baso # (Auto) PT 11.6 INR 1.1 APTT 34 Sodium Potassium Chloride Carbon Dioxide Anion Gap BUN Creatinine Est GFR ( Amer) Est GFR (Non-Af Amer) Random Glucose Hemoglobin A1c Calcium Total Bilirubin AST ALT Alkaline Phosphatase Total Creatine Kinase CK-MB (Mass) Troponin I Total Protein Albumin Globulin Albumin/Globulin Ratio Triglycerides Cholesterol LDL Cholesterol Direct HDL Cholesterol Lipase Free T4 0.75 L TSH 3rd Generation 1.36 Urine Color Urine Clarity Urine pH Ur Specific [place] Urine Protein Urine Glucose (UA) Urine Ketones Urine Blood Urine Nitrate Urine Bilirubin Urine Urobilinogen Ur Leukocyte Esterase Urine WBC (Auto) Urine RBC (Auto) Amorphous Sediment Urine Bacteria Urine Opiates Screen Urine Methadone Screen Ur Barbiturates Screen Ur Phencyclidine Scrn Ur Amphetamines Screen U Benzodiazepines Scrn U Oth Cocaine Metabols U Cannabinoids Screen Alcohol, Quantitative Assessment & Plan - Assessment and Plan (Free Text) Assessment: Renal failure -Permacath on Sat -NPO after midnight DW Dr. Roman
[2018-07-12 15:27] LABS: HEPATITIS B SURFACE AG Negative (NEGATIVE)
[2018-07-12 15:32] LABS: HEPATITIS B CORE AB NEGATIVE (NEGATIVE)
[2018-07-12 15:45] LABS: HEPATITIS C ANTIBODY NEGATIVE (NEGATIVE)
[2018-07-12 17:11] LABS: IRON 65 ug/dL (49-181)
[2018-07-12 17:21] LABS: % IRON SATURATION 26 (20-55); TOTAL IRON BINDING CAPACITY 249 ug/dL (250-450)
[2018-07-12 18:32] LABS: CREATININE, RANDOM URINE 54.4 mg/dL
--- NOTE | 2018-07-12 19:01 | US ---
Date of service: 07/12/2018 PROCEDURE: Ultrasound of the Kidneys HISTORY: rachel COMPARISON: July 11, 2018 abdominal ultrasound. TECHNIQUE: Sonogram of the kidneys. FINDINGS: RIGHT KIDNEY: Measures: 5.9 x 6.1 x 11.5 cm. Normal size, increased echogenicity. No stone, solid mass lesion or hydronephrosis visualized. Incidental lower pole cyst 1.2 x 1.1 cm. LEFT KIDNEY: Measures: 5 x 5.6 x 11.3 cm. Normal size, increased echogenicity. No stone, solid mass lesion or hydronephrosis visualized. Midpole cyst 1.3 x 1.7 cm. OTHER FINDINGS: Urinary bladder assessment: Prevoid volume: 415.2 ml Postvoid residual: No urge to void therefore no measurable assessment of postvoid residual Intrinsic, mural, perivesical abnormalities: None Ureteral jets: Not visible bilaterally. IMPRESSION: Echogenic kidneys consistent medical renal disease. No evidence of obstructive uropathy. Normal capacitance bladder without evidence of bladder wall abnormality.
[2018-07-12] MEDS: Rosuvastatin Calcium 2.5 mg Tab PO SCH (21:11)
[2018-07-13] MEDS: Sodium Chloride 0.9% 1,000 ML IV SCH ×2 (00:07→03:03)
[2018-07-13] MEDS ORDERED: Lidocaine Hydrochloride 10 ML INJ ONE (07:28)
[2018-07-13] MEDS ORDERED: HEPARIN-NS 5,000 UNITS/500 ML 5,000 UNIT/500 ML BAG IV ONE (07:28)
[2018-07-13] MEDS ORDERED: Propofol 10 mg/ml Inj (20 ML) ONE (07:47)
[2018-07-13] MEDS ORDERED: Midazolam 2 MG/2 ML VIAL ONE (07:47)
[2018-07-13 07:56] LABS: COMPLEMENT C4 45.2 mg/dL (14.0-44.0)
[2018-07-13] MEDS ORDERED: ceFAZolin 1 gm FROZEN Premix 2 GM/100 ML ML IVPB ONE (08:08)
[2018-07-13 08:37] LABS: FERRITIN 80.2 ng/mL
[2018-07-13] MEDS ORDERED: HYDROmorphone 0.5 mg/0.5 ml ISec IVP PRN (08:55)
--- NOTE | 2018-07-13 09:13 | PCM.SURG1 ---
Surgeon's Initial Post Op Note - Surgeon's Notes Surgeon: Dr. Roman Finishing Machine Operator: Pepito Rosenberg PGY3 Type of Anesthesia: General LMA Anesthesia Administered By: Randolph Pre-Operative Diagnosis: renal failure Operative Findings: good R IJ Post-Operative Diagnosis: Renal failure Operation Performed: BRENDA wang Specimen/Specimens Removed: None Estimated Blood Loss: EBL {In ML}: 20 Blood Products Given: N/A Drains Used: No Drains Post-Op Condition: Good Date of Surgery/Procedure: 07/13/18 Time of Surgery/Procedure: 09:17
--- NOTE | 2018-07-13 09:30 | RAD ---
HISTORY: permacath COMPARISON: Chest x-ray performed 07/11/18 TECHNIQUE: Chest, one view. FINDINGS: Right-sided IJ dialysis catheter extends to the right atrium. Examination limited by habitus and marked hypoinflation. LUNGS: Mild pulmonary venous congestion. Patchy bilateral upper lobe infiltrates/central venous congestion. Please note that chest x-ray has limited sensitivity for the detection of pulmonary masses. PLEURA: No significant pleural effusion identified. No definite pneumothorax. CARDIOVASCULAR: Cardiomegaly. OSSEOUS STRUCTURES: No acute osseous abnormality identified. VISUALIZED UPPER ABDOMEN: Unremarkable. OTHER FINDINGS: None. IMPRESSION: Right-sided IJ dialysis catheter extends to the right atrium. Hypoinflation. Mild pulmonary venous congestion. Patchy bilateral upper lobe infiltrates/central venous congestion. Cardiomegaly.
[2018-07-13] MEDS ORDERED: Pneumococcal 23-Valent Vaccine IM ONE (10:00)
[2018-07-13] MEDS ORDERED: Influenza Vaccine 60 MCG/0.5 ML SYR (3 yr & up) IM ONE (10:00)
--- NOTE | 2018-07-13 11:36 | CP.PCM.PN ---
Subjective - Date & Time of Evaluation Date of Evaluation: 07/13/18 Time of Evaluation: 11:33 - Subjective Subjective: s/p permcath first HD today no acute distress says urine is reduced sullen affect does not cooperate with questions cannot obtain ROS due to above Objective - Vital Signs/Intake and Output Vital Signs (last 24 hours): Temp Pulse Resp BP Pulse Ox 98.7 F 75 20 132/82 97 07/13/18 09:40 07/13/18 09:40 07/13/18 09:40 07/13/18 09:40 07/13/18 09:40 Intake and Output: 07/13/18 07/13/18 06:59 18:59 Intake Total 1420 70 Output Total 900 400 Balance 520 -330 - Medications Medications: Current Medications Acetaminophen (Tylenol 325mg Tab) 650 mg PO Q6 PRN PRN Reason: Pain, moderate (4-7) Last Admin: 07/13/18 05:56 Dose: 650 mg Amlodipine Besylate (Norvasc) 10 mg PO DAILY [facility] Last Admin: 07/13/18 10:39 Dose: Not Given Heparin Sodium (Porcine) (Heparin) 5,000 units SC Q12 [facility] Last Admin: 07/13/18 10:00 Dose: Not Given Sodium Chloride (Sodium Chloride 0.9%) 1,000 mls @ 100 mls/hr IV .Q10H [facility] Last Admin: 07/13/18 03:03 Dose: Not Given Rosuvastatin Calcium (Crestor) 2.5 mg PO HS [facility] Last Admin: 07/12/18 21:11 Dose: 2.5 mg - Labs Labs: 07/12/18 07:00 07/12/18 07:00 PT 11.6 SECONDS (9.7-12.2) 07/12/18 14:20 INR 1.1 07/12/18 14:20 APTT 34 SECONDS (21-34) 07/12/18 14:20 - Constitutional Appears: Non-toxic, No Acute Distress - Head Exam Head Exam: ATRAUMATIC, NORMAL INSPECTION - Eye Exam Eye Exam: EOMI - ENT Exam ENT Exam: Mucous Membranes Moist - Neck Exam Neck Exam: Full ROM. absent: Thyromegaly - Respiratory Exam Respiratory Exam: Decreased Breath Sounds. absent: Accessory Muscle Use - Cardiovascular Exam Cardiovascular Exam: REGULAR RHYTHM. absent: Rubs - GI/Abdominal Exam GI & Abdominal Exam: Normal Bowel Sounds. absent: Tenderness - Extremities Exam Extremities Exam: absent: Pedal Edema - Neurological Exam Neurological Exam: Awake, Oriented x3 - Psychiatric Exam Psychiatric exam: Flat Affect. absent: Normal Affect Assessment and Plan - Assessment and Plan (Free Text) Assessment: renal failure start HD suspect will require medical device assembler dialysis to discuss further whether renal biopsy should be undertaken esrd likely due to drug use, exacerbated by hypertension
--- NOTE | 2018-07-13 11:45 | CP.PCM.HP ---
History of Present Illness - History of Present Illness History of Present Illness: 28yo M with PMH CKD, HTN, ADHD, PCP use, marijuana use, EtOH use presents today for RUQ and chest pain. Both happened simultaneously and awoke him from his sleep this AM at 6. The RUQ pain at worse is 10/10. Episodes last about an hour at a time and come back after 10 min. It's a stabbing pain that radiates to his side, without radiation to the back. Present on Admission - Present on Admission Any Indicators Present on Admission: No History of DVT/PE: No History of Uncontrolled Diabetes: No Urinary Catheter: No Decubitus Ulcer Present: No Review of Systems - Constitutional Constitutional: Weight Gain - EENT Eyes: As Per HPI Ears: As Per HPI Nose/Mouth/Throat: As Per HPI - Cardiovascular Cardiovascular: Dyspnea on Exertion - Respiratory Respiratory: Dyspnea on Exertion - Gastrointestinal Gastrointestinal: Bloating - Genitourinary Additional comments: ckd - Reproductive: Male Reproductive:Male: As Per HPI - Musculoskeletal Musculoskeletal: As Per HPI - Integumentary Integumentary: As Per HPI - Neurological Neurological: As Per HPI - Psychiatric Psychiatric: Depression, Difficulty Concentrating Additional comments: substansce abuse - Endocrine Endocrine: Cold Intolorance - Hematologic/Lymphatic Hematologic: As Per HPI Past Patient History - Infectious Disease Hx of Infectious Diseases: None - Past Medical History & Family History Past Medical History?: Yes - Past Social History Smoking Status: Heavy Smoker > 10 Cigarettes Daily - CARDIAC Hx Cardiac Disorders: Yes Hx Hypertension: Yes - PULMONARY Hx Respiratory Disorders: Yes Hx Asthma: Yes - NEUROLOGICAL Hx Neurological Disorder: Yes Other/Comment: traumatic head injury - HEENT Hx HEENT Problems: No - RENAL Other/Comment: "my kidneys are going to explode" "I have kidney failure" - ENDOCRINE/METABOLIC Hx Endocrine Disorders: No - HEMATOLOGICAL/ONCOLOGICAL Hx Blood Disorders: No - INTEGUMENTARY Hx Dermatological Problems: No - MUSCULOSKELETAL/RHEUMATOLOGICAL Hx Falls: No - GASTROINTESTINAL Hx Gastrointestinal Disorders: No - GENITOURINARY/GYNECOLOGICAL Hx Genitourinary Disorders: No - PSYCHIATRIC Hx Substance Use: Yes - SURGICAL HISTORY Hx Surgeries: Yes Other/Comment: LEFT HEAD SURGERY DUE TO INJURY - ANESTHESIA Hx Anesthesia: Yes Hx Anesthesia Reactions: No Hx Malignant Hyperthermia: No Meds Allergies/Adverse Reactions: Allergies Allergy/AdvReac Type Severity Reaction Status Date / Time FISH Allergy REDNESS Verified 07/11/18 20:55 Physical Exam - Constitutional Appears: No Acute Distress - Head Exam Head Exam: ATRAUMATIC - Eye Exam Eye Exam: Normal appearance Pupil Exam: NORMAL ACCOMODATION - ENT Exam ENT Exam: Mucous Membranes Moist - Neck Exam Neck exam: Positive for: Normal Inspection - Respiratory Exam Respiratory Exam: Decreased Breath Sounds - Cardiovascular Exam Cardiovascular Exam: REGULAR RHYTHM - GI/Abdominal Exam GI & Abdominal Exam: Normal Bowel Sounds, Tenderness - Rectal Exam Rectal Exam: NORMAL INSPECTION - Exam Exam: NORMAL INSPECTION - Extremities Exam Extremities exam: Positive for: normal inspection - Back Exam Back exam: CVA tenderness (L) - Neurological Exam Neurological exam: Alert, Oriented x3 - Psychiatric Exam Psychiatric exam: Flat Affect - Skin Skin Exam: Pallor, Warm Results - Vital Signs Recent Vital Signs: Last Vital Signs Temp 98.7 F 07/13/18 09:40 Pulse 75 07/13/18 09:40 Resp 20 07/13/18 09:40 BP 132/82 07/13/18 09:40 Pulse Ox 97 07/13/18 09:40 - Labs Result Diagrams: 07/12/18 07:00 07/12/18 07:00 Labs: Laboratory Results - last 24 hr 07/12/18 07/12/18 07/12/18 14:20 14:20 14:21 PT 11.6 INR 1.1 APTT 34 Phosphorus Iron TIBC % Saturation Ferritin Ur Random Creatinine U Random Total Protein Complement C3 Complement C4 Hep Bs Antigen Negative Hep B Core IgM Ab Negative Hepatitis C Antibody Negative HIV 1&2 Antibody Screen Negative 07/12/18 07/12/18 07/13/18 17:02 17:57 06:19 PT INR APTT Phosphorus Iron 65 TIBC 249 L % Saturation 26 Ferritin Ur Random Creatinine 54.4 U Random Total Protein 297.0 H Complement C3 160.0 Complement C4 45.2 H Hep Bs Antigen Hep B Core IgM Ab Hepatitis C Antibody HIV 1&2 Antibody Screen 07/13/18 06:19 PT INR APTT Phosphorus 8.7 H Iron TIBC % Saturation Ferritin 80.2 Ur Random Creatinine U Random Total Protein Complement C3 Complement C4 Hep Bs Antigen Hep B Core IgM Ab Hepatitis C Antibody HIV 1&2 Antibody Screen Assessment & Plan - Assessment and Plan (Free Text) Assessment: ac on ckf required dialysis aneamia hyperkaleamia Plan: start dialysis today - Date & Time Date: 07/13/18 Time: 11:49
[2018-07-13] MEDS ORDERED: DiphenhydrAMINE 50 mg/ml Inj IVP ONE (14:45)
--- NOTE | 2018-07-13 20:50 | OP ---
PROCEDURE DATE: 07/13/2018 PREOPERATIVE DIAGNOSIS: Renal failure. POSTOPERATIVE DIAGNOSIS: Renal failure. PROCEDURE CARRIED OUT: Placement of Perm-A-Cath, right jugular vein with C-arm fluoroscopy, ultrasound-guided puncture, and micropuncture technique. SURGEON: Evan Roman Jr., MD. ENTRY LEVEL ADMINISTRATIVE ASSISTANT: . ANESTHESIOLOGIST: Philippe Dickson MD ANESTHESIA: General anesthesia. INDICATIONS: A 28-year-old man with renal insufficiency, now requires dialysis on urgent basis. OPERATIVE FINDINGS: 1. Catheter was inserted uneventfully via the jugular vein procedure. DESCRIPTION OF PROCEDURE: The patient was given general anesthesia, intravenous antibiotics. Using ultrasound guidance, the right jugular vein was punctured. Under fluoroscopic control, the guidewire was advanced centrally. This was exchanged for an 0.035 wire. The catheter was then delivered originating on the right chest wall, going through the jugular vein, and terminated in the superior vena cava and right atrium. This was flushed with heparinized saline, there was excellent return. Blood loss for the procedure was 5 to 10 mL. OPERATION CARRIED OUT: [id number], right jugular vein, C-arm fluoroscopy and ultrasound-guided puncture. Ultrasound of his neck shows the vein was approximately 12 mm in diameter with normal compressibility and no thrombosis. Evan Roman Jr., MD
[2018-07-13] MEDS: Rosuvastatin Calcium 2.5 mg Tab PO SCH (22:17)
--- NOTE | 2018-07-14 07:15 | CP.PCM.PN ---
Subjective - Date & Time of Evaluation Date of Evaluation: 07/14/18 Time of Evaluation: 07:14 - Subjective Subjective: Vascular Surgeyr: Dr Roman Pt S&E. NAEO. Merged With [facility] site c/d/i. No complaints Vein mapping completed will plan for AVF this week will d/w Dr Roman Objective - Vital Signs/Intake and Output Vital Signs (last 24 hours): Temp Pulse Resp BP Pulse Ox 98.2 F 81 20 125/85 100 07/13/18 17:35 07/14/18 00:40 07/13/18 17:35 07/13/18 17:35 07/13/18 17:35 - Medications Medications: Current Medications Acetaminophen (Tylenol 325mg Tab) 650 mg PO Q6 PRN PRN Reason: Pain, moderate (4-7) Last Admin: 07/13/18 13:22 Dose: 650 mg Amlodipine Besylate (Norvasc) 10 mg PO DAILY [facility] Last Admin: 07/13/18 10:39 Dose: Not Given Heparin Sodium (Porcine) (Heparin) 5,000 units SC Q12 [facility] Last Admin: 07/13/18 22:17 Dose: 5,000 units Rosuvastatin Calcium (Crestor) 2.5 mg PO HS [facility] Last Admin: 07/13/18 22:17 Dose: 2.5 mg - Labs Labs: 07/12/18 07:00 07/12/18 07:00 PT 11.6 SECONDS (9.7-12.2) 07/12/18 14:20 INR 1.1 07/12/18 14:20 APTT 34 SECONDS (21-34) 07/12/18 14:20
[2018-07-14] MEDS: Rosuvastatin Calcium 2.5 mg Tab PO SCH (21:59)
--- NOTE | 2018-07-15 07:41 | CP.PCM.PN ---
Subjective - Date & Time of Evaluation Date of Evaluation: 07/15/18 Time of Evaluation: 07:39 - Subjective Subjective: Surgery PT seen and examined. No acute events. Started on HD. RIJ catheter in place. No bleeding. Objective - Vital Signs/Intake and Output Vital Signs (last 24 hours): Temp Pulse Resp BP Pulse Ox 98.4 F 90 20 133/78 94 L 07/14/18 15:56 07/15/18 01:00 07/14/18 15:56 07/14/18 15:56 07/14/18 15:56 Intake and Output: 07/15/18 07/15/18 06:59 18:59 Intake Total 240 Output Total 300 Balance -60 - Medications Medications: Current Medications Acetaminophen (Tylenol 325mg Tab) 650 mg PO Q6 PRN PRN Reason: Pain, moderate (4-7) Last Admin: 07/13/18 13:22 Dose: 650 mg Amlodipine Besylate (Norvasc) 10 mg PO DAILY [facility] Last Admin: 07/14/18 09:09 Dose: 10 mg Heparin Sodium (Porcine) (Heparin) 5,000 units SC Q12 [facility] Last Admin: 07/14/18 21:59 Dose: Not Given Rosuvastatin Calcium (Crestor) 2.5 mg PO HS [facility] Last Admin: 07/14/18 21:59 Dose: Not Given - Labs Labs: 07/12/18 07:00 07/12/18 07:00 PT 11.6 SECONDS (9.7-12.2) 07/12/18 14:20 INR 1.1 07/12/18 14:20 APTT 34 SECONDS (21-34) 07/12/18 14:20 - Constitutional Appears: No Acute Distress - Head Exam Head Exam: ATRAUMATIC, NORMAL INSPECTION, NORMOCEPHALIC - Eye Exam Eye Exam: EOMI, Normal appearance, PERRL Pupil Exam: NORMAL ACCOMODATION, PERRL - ENT Exam ENT Exam: Mucous Membranes Moist, Normal Exam - Neck Exam Neck Exam: Full ROM Additional comments: RIJ catheter in place. no bleeding. - Cardiovascular Exam Cardiovascular Exam: REGULAR RHYTHM - GI/Abdominal Exam GI & Abdominal Exam: absent: Distended - Extremities Exam Extremities Exam: Full ROM, Normal Inspection - Back Exam Back Exam: NORMAL INSPECTION - Neurological Exam Neurological Exam: Alert, Awake, CN II-XII Intact, Normal Gait, Oriented x3 - Psychiatric Exam Psychiatric exam: Normal Affect, Normal Mood - Skin Skin Exam: Dry, Intact, Normal Color, Warm Assessment and Plan - Assessment and Plan (Free Text) Assessment: s/p permacath for renal failure -possible AVF -vein map shows good veins on L arm -L arm precaution WIll DW Dr. Roman
--- NOTE | 2018-07-15 12:50 | CP.PCM.PN ---
Subjective - Date & Time of Evaluation Date of Evaluation: 07/15/18 Time of Evaluation: 12:49 - Subjective Subjective: seen and examined grandma at bedside, condition discussed still w/ cough, no sob no leg swelling no n/v/d/cp/dizziness/headache/rash Objective - Vital Signs/Intake and Output Vital Signs (last 24 hours): Temp Pulse Resp BP Pulse Ox 98.3 F 85 20 160/98 H 100 07/15/18 08:00 07/15/18 08:00 07/15/18 08:00 07/15/18 08:00 07/15/18 08:00 Intake and Output: 07/15/18 07/15/18 06:59 18:59 Intake Total 240 Output Total 300 Balance -60 - Medications Medications: Current Medications Acetaminophen (Tylenol 325mg Tab) 650 mg PO Q6 PRN PRN Reason: Pain, moderate (4-7) Last Admin: 07/15/18 09:52 Dose: 650 mg Amlodipine Besylate (Norvasc) 10 mg PO DAILY [facility] Last Admin: 07/15/18 09:51 Dose: 10 mg Rosuvastatin Calcium (Crestor) 2.5 mg PO HS [facility] Last Admin: 07/14/18 21:59 Dose: Not Given - Labs Labs: 07/12/18 07:00 07/12/18 07:00 PT 11.6 SECONDS (9.7-12.2) 07/12/18 14:20 INR 1.1 07/12/18 14:20 APTT 34 SECONDS (21-34) 07/12/18 14:20 - Constitutional Appears: Non-toxic, No Acute Distress (obese), Chronically Ill - Head Exam Head Exam: NORMAL INSPECTION, NORMOCEPHALIC - Eye Exam Eye Exam: Normal appearance, PERRL - ENT Exam ENT Exam: Mucous Membranes Moist, Normal Exam - Neck Exam Neck Exam: Full ROM, Normal Inspection - Respiratory Exam Respiratory Exam: Clear to Ausculation Bilateral, NORMAL BREATHING PATTERN - Cardiovascular Exam Cardiovascular Exam: REGULAR RHYTHM, RRR - GI/Abdominal Exam GI & Abdominal Exam: Distended, Soft - Extremities Exam Extremities Exam: Normal Inspection (rt chest permcath) - Neurological Exam Neurological Exam: Alert, Awake, Oriented x3 - Skin Skin Exam: Dry, Intact Assessment and Plan (1) MK (acute kidney injury) Status: Acute (2) Anemia Status: Acute (3) HTN (hypertension) Status: Acute (4) Cannabis use disorder, mild, abuse Status: Acute (5) Phencyclidine (PCP) use disorder, moderate Status: Acute (6) Renal failure Status: Acute - Assessment and Plan (Free Text) Assessment: hd today check cbc bmp pth will likely need oysterman hd, needs avf pt w/ known ckd 4, echogenic kidneys and negative serology. renal biopsy unlikely to be helpful pending tanmay anca anti gbm
--- NOTE | 2018-07-15 13:40 | RAD ---
Date of service: 07/13/2018 PROCEDURE: Intraoperative Fluoroscopy. HISTORY: RENAL FAILURE FINDINGS: Fluoroscopic assistance was provided for right-sided PermCath placement. Please refer to the operative report from ESTIVEN Dugan.
--- NOTE | 2018-07-15 14:30 | VASCLAB ---
Date of service: 07/13/2018 PROCEDURE: Left Upper Extremity Venous Duplex Exam HISTORY: AVF ESRD, PRe-op AV fistula PRIORS: None. TECHNIQUE: Left upper extremity, internal jugular, subclavian, axillary, brachial, ulnar, radial, basilic and upper cephalic veins were evaluated. Flow was assessed with color Doppler, compressibility, assessment of phasic flow and augmentation response. Report prepared by YOHANA Lainez, RVT FINDINGS: LEFT: 1. Internal Jugular Vein: Compressibility - Fully compressible: Thrombus - None : Flow - Phasic 2. Subclavian Vein:Compressibility - Fully compressible: Thrombus - None : Flow - Phasic 3. Axillary Vein: Compressibility - Fully compressible: Thrombus - None 4. Brachial Vein: Compressibility - Fully compressible: Thrombus - None 5. Ulnar Vein:Compressibility - Fully compressible: Thrombus - None 6. Radial Vein:Compressibility - Fully compressible: Thrombus - None 7. Cephalic Vein: Compressibility - Fully compressible: thrombus - None 7.1. Upper Arm: Proximal Diameter: cm. Mid Diameter: cm. Distal Diameter: cm. 7.2. Forearm: Proximal Diameter: cm. Mid Diameter:cm. Distal Diameter: cm 8. Basilic Vein:Compressibility - Fully compressible: thrombus - None 8.1. Upper Arm:Proximal Diameter: cm. Mid Diameter: cm. Distal Diameter: cm. 8.2. Forearm: Proximal Diameter: cm. Mid Diameter:cm. Distal Diameter: cm. OTHER FINDINGS: None. IMPRESSION: The diameter measurements of the left cephalic vein is measured between 0.33 cm and 0.57 cm and basilic vein is measured between 0.28cm and 0.59cm.
--- NOTE | 2018-07-15 20:51 | CARD ---
APPROVED REPORT Date of service: 07/11/2018 EKG Measurement Heart [id number] ID [id number] <Conclusion> Normal sinus rhythm T wave abnormality, consider inferior ischemia Prolonged QT Abnormal ECG
[2018-07-15] MEDS: Rosuvastatin Calcium 2.5 mg Tab PO SCH (21:21)
--- NOTE | 2018-07-16 07:44 | CP.PCM.PN ---
Subjective - Date & Time of Evaluation Date of Evaluation: 07/16/18 Time of Evaluation: 06:50 - Subjective Subjective: surgery progress note for Dr. Roman Pt seen and examined this AM. Pt states that he permacath is uncomfortable. Discussed possibility of AVF creation on . Objective - Vital Signs/Intake and Output Vital Signs (last 24 hours): Temp Pulse Resp BP Pulse Ox 97.4 F L 80 20 144/80 96 07/15/18 23:20 07/16/18 00:00 07/15/18 23:20 07/15/18 23:20 07/15/18 23:20 Intake and Output: 07/16/18 07/16/18 06:59 18:59 Intake Total 200 Balance 200 - Medications Medications: Current Medications Acetaminophen (Tylenol 325mg Tab) 650 mg PO Q6 PRN PRN Reason: Pain, moderate (4-7) Last Admin: 07/15/18 17:05 Dose: 650 mg Amlodipine Besylate (Norvasc) 10 mg PO DAILY [facility] Last Admin: 07/15/18 09:51 Dose: 10 mg Losartan Potassium (Cozaar) 50 mg PO DAILY [facility] Last Admin: 07/15/18 21:21 Dose: Not Given Rosuvastatin Calcium (Crestor) 2.5 mg PO HS [facility] Last Admin: 07/15/18 21:21 Dose: 2.5 mg - Labs Labs: 07/12/18 07:00 07/12/18 07:00 PT 11.6 SECONDS (9.7-12.2) 07/12/18 14:20 INR 1.1 07/12/18 14:20 APTT 34 SECONDS (21-34) 07/12/18 14:20 - Constitutional Appears: Well, Non-toxic, No Acute Distress - Head Exam Head Exam: ATRAUMATIC, NORMOCEPHALIC - Eye Exam Eye Exam: Normal appearance. absent: Conjunctival injection, Scleral icterus - ENT Exam ENT Exam: Mucous Membranes Moist, Normal Oropharynx - Respiratory Exam Respiratory Exam: NORMAL BREATHING PATTERN. absent: Accessory Muscle Use, Respiratory Distress - Cardiovascular Exam Cardiovascular Exam: RRR - GI/Abdominal Exam GI & Abdominal Exam: Soft. absent: Distended - Extremities Exam Extremities Exam: absent: Calf Tenderness, Pedal Edema, Tenderness - Neurological Exam Neurological Exam: Alert, Awake, Oriented x3 - Psychiatric Exam Psychiatric exam: Normal Affect, Normal Mood - Skin Skin Exam: Dry, Normal Color, Warm Assessment and Plan - Assessment and Plan (Free Text) Assessment: 28M with MK s/p permacath insertion Plan: Plan on going to OR for AVF on continue HD via permacath Medical management per nephrology and primary CBC/BMP/PT/PTT tomorrow AM Discussed with Dr. Jessie Jones, PGY2
--- NOTE | 2018-07-16 08:01 | PN ---
DATE: 07/15/2018 Patient complain of back pain. Supportive care. Blood pressure controlled. Gaudencio Sarkar MD
--- NOTE | 2018-07-16 10:30 | CP.PCM.PN ---
Subjective - Date & Time of Evaluation Date of Evaluation: 07/16/18 Time of Evaluation: 10:28 - Subjective Subjective: seen and examined no complaints s/p hd yesterday no labs today Objective - Vital Signs/Intake and Output Vital Signs (last 24 hours): Temp Pulse Resp BP Pulse Ox 98.6 F 81 20 141/90 98 07/16/18 07:00 07/16/18 08:30 07/16/18 07:00 07/16/18 07:00 07/16/18 07:00 Intake and Output: 07/16/18 07/16/18 06:59 18:59 Intake Total 200 Balance 200 - Medications Medications: Current Medications Acetaminophen (Tylenol 325mg Tab) 650 mg PO Q6 PRN PRN Reason: Pain, moderate (4-7) Last Admin: 07/15/18 17:05 Dose: 650 mg Amlodipine Besylate (Norvasc) 10 mg PO DAILY [facility] Last Admin: 07/16/18 09:41 Dose: 10 mg Calcitriol (Rocaltrol) 1 mcg PO DAILY [facility] Losartan Potassium (Cozaar) 50 mg PO DAILY [facility] Last Admin: 07/16/18 09:41 Dose: 50 mg Rosuvastatin Calcium (Crestor) 2.5 mg PO HS [facility] Last Admin: 07/15/18 21:21 Dose: 2.5 mg - Labs Labs: 07/12/18 07:00 07/12/18 07:00 PT 11.6 SECONDS (9.7-12.2) 07/12/18 14:20 INR 1.1 07/12/18 14:20 APTT 34 SECONDS (21-34) 07/12/18 14:20 - Constitutional Appears: Non-toxic, No Acute Distress, Chronically Ill - Head Exam Head Exam: NORMAL INSPECTION, NORMOCEPHALIC - Eye Exam Eye Exam: Normal appearance, PERRL - ENT Exam ENT Exam: Mucous Membranes Moist, Normal Exam - Neck Exam Neck Exam: Full ROM, Normal Inspection - Respiratory Exam Respiratory Exam: Clear to Ausculation Bilateral, NORMAL BREATHING PATTERN - Cardiovascular Exam Cardiovascular Exam: REGULAR RHYTHM, RRR - GI/Abdominal Exam GI & Abdominal Exam: Distended, Soft - Extremities Exam Extremities Exam: Full ROM, Normal Inspection - Neurological Exam Neurological Exam: Alert, Awake, Oriented x3 - Psychiatric Exam Psychiatric exam: Normal Affect, Normal Mood - Skin Skin Exam: Dry, Intact Assessment and Plan (1) MK (acute kidney injury) Status: Acute (2) Anemia Status: Acute (3) HTN (hypertension) Status: Acute (4) Cannabis use disorder, mild, abuse Status: Acute (5) Phencyclidine (PCP) use disorder, moderate Status: Acute (6) Renal failure Status: Acute - Assessment and Plan (Free Text) Assessment: maintain hd, will need avf outpt placement serology negative. f/u anca / anti gbm 4 g proteinuria. renal US w/ echogenic kidneys, known ckd 4 until earlier this year. Likely progression of renal dz sec to uncontrolled htn. Discussed renal biopsy with pt, wants more time to think about it. add calcitriol f/u daily bmp, cbc
[2018-07-16 14:01] LABS: BASO # 0.1 K/uL (0.0-0.2); BASO % 0.5 % (0.0-2.0); EOS # 0.3 K/uL (0.0-0.7); EOS % 3.3 % (0.0-4.0); HEMOGLOBIN 9.7 g/dL (12.0-18.0); LYMPH # 1.9 K/uL (1.0-4.3); LYMPH % 19.5 % (20.0-40.0); MEAN CELL VOLUME 88.7 fL (80.0-94.0); MEAN CORPUSCULAR HEMOGLOBIN 30.5 pg (27.0-31.0); MEAN CORPUSCULAR HGB CONC 34.4 g/dL (33.0-37.0); MEAN PLATELET VOLUME 9.9 fL (7.2-11.7); MONO # 0.6 K/uL (0.0-0.8); MONO % 6.7 % (0.0-10.0); NEUT # 6.7 K/uL (1.8-7.0); RBC 3.17 Mil/uL (4.40-5.90); RED CELL DISTRIBUTION WIDTH 13.4 % (11.5-14.5); WHITE BLOOD COUNT 9.6 K/uL (4.8-10.8)
[2018-07-16 14:25] LABS: CALCIUM 8.4 mg/dl (8.6-10.4)
[2018-07-16] MEDS: Rosuvastatin Calcium 2.5 mg Tab PO SCH (21:24)
[2018-07-17 02:54] LABS: ANCA SCREEN NEGATIVE (NEGATIVE)
--- NOTE | 2018-07-17 07:39 | CP.PCM.PN ---
Subjective - Date & Time of Evaluation Date of Evaluation: 07/17/18 Time of Evaluation: 07:37 - Subjective Subjective: uncooperative with most questions AVF planned for tomorrow tolerating HD refusing blood today ROS cannot be obtained due to above Objective - Vital Signs/Intake and Output Vital Signs (last 24 hours): Temp Pulse Resp BP Pulse Ox 98.5 F 77 20 134/88 97 07/16/18 23:10 07/16/18 23:40 07/16/18 23:10 07/16/18 23:10 07/16/18 23:10 Intake and Output: 07/17/18 07/17/18 06:59 18:59 Intake Total 600 Balance 600 - Medications Medications: Current Medications Acetaminophen (Tylenol 325mg Tab) 650 mg PO Q6 PRN PRN Reason: Pain, moderate (4-7) Last Admin: 07/15/18 17:05 Dose: 650 mg Amlodipine Besylate (Norvasc) 10 mg PO DAILY [facility] Last Admin: 07/16/18 09:41 Dose: 10 mg Calcitriol (Rocaltrol) 1 mcg PO DAILY [facility] Last Admin: 07/16/18 12:56 Dose: 1 mcg Losartan Potassium (Cozaar) 50 mg PO DAILY [facility] Last Admin: 07/16/18 09:41 Dose: 50 mg Rosuvastatin Calcium (Crestor) 2.5 mg PO HS [facility] Last Admin: 07/16/18 21:24 Dose: Not Given - Labs Labs: 07/16/18 13:51 07/16/18 13:51 PT 11.6 SECONDS (9.7-12.2) 07/12/18 14:20 INR 1.1 07/12/18 14:20 APTT 34 SECONDS (21-34) 07/12/18 14:20 - Constitutional Appears: Non-toxic, No Acute Distress - Head Exam Head Exam: ATRAUMATIC, NORMAL INSPECTION - Eye Exam Eye Exam: EOMI - ENT Exam ENT Exam: Mucous Membranes Moist - Neck Exam Neck Exam: Full ROM. absent: Lymphadenopathy - Respiratory Exam Respiratory Exam: NORMAL BREATHING PATTERN. absent: Rhonchi - Cardiovascular Exam Cardiovascular Exam: REGULAR RHYTHM. absent: Rubs - GI/Abdominal Exam GI & Abdominal Exam: Soft. 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
[2018-07-17 14:47] LABS: HEMOGLOBIN 8.7 g/dL (12.0-18.0); MEAN CORPUSCULAR HGB CONC 34.8 g/dL (33.0-37.0); RBC 2.82 Mil/uL (4.40-5.90); RED CELL DISTRIBUTION WIDTH 13.5 % (11.5-14.5); WHITE BLOOD COUNT 9.8 K/uL (4.8-10.8)
[2018-07-17 14:52] LABS: INR 1.1; PROTHROMBIN TIME 11.9 SECONDS (9.7-12.2)
[2018-07-17 15:01] LABS: CALCIUM 8.6 mg/dl (8.6-10.4)
--- NOTE | 2018-07-17 16:45 | CP.PCM.PN ---
Subjective - Date & Time of Evaluation Date of Evaluation: 07/17/18 Time of Evaluation: 10:30 - Subjective Subjective: General Surgery Pt Seen and examined. OR tomorrow. No complaints at this time. Objective - Vital Signs/Intake and Output Vital Signs (last 24 hours): Temp Pulse Resp BP Pulse Ox 98.2 F 92 H 16 168/113 H 97 07/17/18 14:30 07/17/18 14:30 07/17/18 14:15 07/17/18 14:45 07/17/18 14:30 Intake and Output: 07/17/18 07/17/18 06:59 18:59 Intake Total 600 Balance 600 - Medications Medications: Current Medications Acetaminophen (Tylenol 325mg Tab) 650 mg PO Q6 PRN PRN Reason: Pain, moderate (4-7) Last Admin: 07/17/18 14:10 Dose: 650 mg Amlodipine Besylate (Norvasc) 10 mg PO DAILY [facility] Last Admin: 07/17/18 12:27 Dose: 10 mg Calcitriol (Rocaltrol) 1 mcg PO DAILY [facility] Last Admin: 07/17/18 12:26 Dose: 1 mcg Losartan Potassium (Cozaar) 50 mg PO DAILY [facility] Last Admin: 07/17/18 12:27 Dose: 50 mg Rosuvastatin Calcium (Crestor) 2.5 mg PO HS [facility] Last Admin: 07/16/18 21:24 Dose: Not Given - Labs Labs: 07/17/18 14:38 07/17/18 14:38 PT 11.9 SECONDS (9.7-12.2) 07/17/18 14:38 INR 1.1 07/17/18 14:38 APTT 33 SECONDS (21-34) 07/17/18 14:38 - Constitutional Appears: Non-toxic, No Acute Distress - Head Exam Head Exam: ATRAUMATIC, NORMOCEPHALIC - Eye Exam Eye Exam: EOMI. absent: Conjunctival injection - Respiratory Exam Respiratory Exam: NORMAL BREATHING PATTERN. absent: Respiratory Distress - GI/Abdominal Exam GI & Abdominal Exam: Soft. absent: Distended, Tenderness - Neurological Exam Neurological Exam: Alert, Awake - Skin Skin Exam: Dry, Warm Assessment and Plan - Assessment and Plan (Free Text) Assessment: 28M with ESRD Plan: OR for AVF on continue HD via permacath Medical management per nephrology and primary AM labs NPO p [place] D/W Dr. Jessie Harris PGY4
[2018-07-17] MEDS: Rosuvastatin Calcium 2.5 mg Tab PO SCH (21:51)
[2018-07-18 01:17] VITALS: TEMP 98.1
--- NOTE | 2018-07-18 07:10 | PN ---
DATE: 07/17/2018 SUBJECTIVE: The patient going to Hemodialysis today. . Blood pressure medication controlled. Gaudencio Sarkar MD
[2018-07-18] MEDS ORDERED: HEPARIN-NS 5,000 UNITS/500 ML 0 UNIT/0 ML BAG IV ONE (07:20)
[2018-07-18] MEDS ORDERED: ceFAZolin IV 1 gm in Dextrose 0 GM/0 ML BAG IVPB ONE (07:21)
[2018-07-18 08:23] VITALS: BP 144/87; RESP 18; O2SAT 96
--- NOTE | 2018-07-18 11:20 | CP.PCM.PN ---
Subjective - Date & Time of Evaluation Date of Evaluation: 07/18/18 Time of Evaluation: 11:19 - Subjective Subjective: seen and examined s/p hd yesterday unremarkable c/o insomnia at night. Jordyn ashley at 4 am, was supposed to be npo for procedure. c/o leg pain b/l chronic Objective - Vital Signs/Intake and Output Vital Signs (last 24 hours): Temp Pulse Resp BP Pulse Ox 98.1 F 88 18 144/87 96 07/18/18 07:00 07/18/18 07:00 07/18/18 07:00 07/18/18 07:00 07/18/18 07:00 - Medications Medications: Current Medications Acetaminophen (Tylenol 325mg Tab) 650 mg PO Q6 PRN PRN Reason: Pain, moderate (4-7) Last Admin: 07/17/18 14:10 Dose: 650 mg Amlodipine Besylate (Norvasc) 10 mg PO DAILY [facility] Last Admin: 07/18/18 10:51 Dose: 10 mg Calcitriol (Rocaltrol) 1 mcg PO DAILY [facility] Last Admin: 07/18/18 10:51 Dose: 1 mcg Losartan Potassium (Cozaar) 50 mg PO DAILY [facility] Last Admin: 07/18/18 10:51 Dose: 50 mg Rosuvastatin Calcium (Crestor) 2.5 mg PO HS [facility] Last Admin: 07/17/18 21:51 Dose: 2.5 mg - Labs Labs: 07/17/18 14:38 07/17/18 14:38 PT 11.9 SECONDS (9.7-12.2) 07/17/18 14:38 INR 1.1 07/17/18 14:38 APTT 33 SECONDS (21-34) 07/17/18 14:38 - Constitutional Appears: Non-toxic, No Acute Distress, Chronically Ill - Head Exam Head Exam: NORMAL INSPECTION, NORMOCEPHALIC - Eye Exam Eye Exam: Normal appearance, PERRL - ENT Exam ENT Exam: Mucous Membranes Moist, Normal Exam - Neck Exam Neck Exam: Full ROM, Normal Inspection - Respiratory Exam Respiratory Exam: Clear to Ausculation Bilateral, NORMAL BREATHING PATTERN - Cardiovascular Exam Cardiovascular Exam: REGULAR RHYTHM, RRR - GI/Abdominal Exam GI & Abdominal Exam: Distended, Soft - Extremities Exam Extremities Exam: Full ROM, Normal Inspection - Neurological Exam Neurological Exam: Alert, Awake, Oriented x3 - Psychiatric Exam Psychiatric exam: Normal Affect, Normal Mood - Skin Skin Exam: Intact, Warm Assessment and Plan (1) MK (acute kidney injury) Status: Acute (2) Anemia Status: Acute (3) HTN (hypertension) Status: Acute (4) Cannabis use disorder, mild, abuse Status: Acute (5) Phencyclidine (PCP) use disorder, moderate Status: Acute (6) Renal failure Status: Acute - Assessment and Plan (Free Text) Assessment: maintain hd avf when agreeable bp acceptable outpt placement
[2018-07-18 11:29] LABS: HEMOGLOBIN 9.3 g/dL (12.0-18.0); MEAN CELL VOLUME 88.8 fL (80.0-94.0); MEAN CORPUSCULAR HEMOGLOBIN 31.3 pg (27.0-31.0); MEAN CORPUSCULAR HGB CONC 35.2 g/dL (33.0-37.0); RBC 2.97 Mil/uL (4.40-5.90); RED CELL DISTRIBUTION WIDTH 13.2 % (11.5-14.5); WHITE BLOOD COUNT 9.2 K/uL (4.8-10.8)
[2018-07-18 12:20] LABS: ALB/GLOB RATIO 1.1 (1.0-2.1); ALBUMIN 4.1 g/dL (3.5-5.0); CALCIUM 8.9 mg/dl (8.6-10.4)
--- NOTE | 2018-07-18 14:51 | CP.PCM.PN ---
Subjective - Date & Time of Evaluation Date of Evaluation: 07/18/18 Time of Evaluation: 11:00 - Subjective Subjective: Surgery progress note for Dr. Roman 28 y/o male was seen and examined at bedside. Patient was scheduled for AVF this morning but refusing . Patient seemed agitated and refuse any care at this moment. Objective - Vital Signs/Intake and Output Vital Signs (last 24 hours): Temp Pulse Resp BP Pulse Ox 98.1 F 88 18 144/87 96 07/18/18 07:00 07/18/18 07:00 07/18/18 07:00 07/18/18 07:00 07/18/18 07:00 - Medications Medications: Current Medications Acetaminophen (Tylenol 325mg Tab) 650 mg PO Q6 PRN PRN Reason: Pain, moderate (4-7) Last Admin: 07/17/18 14:10 Dose: 650 mg Amlodipine Besylate (Norvasc) 10 mg PO DAILY [facility] Last Admin: 07/18/18 10:51 Dose: 10 mg Calcitriol (Rocaltrol) 1 mcg PO DAILY [facility] Last Admin: 07/18/18 10:51 Dose: 1 mcg Losartan Potassium (Cozaar) 50 mg PO DAILY [facility] Last Admin: 07/18/18 10:51 Dose: 50 mg Rosuvastatin Calcium (Crestor) 2.5 mg PO HS [facility] Last Admin: 07/17/18 21:51 Dose: 2.5 mg - Labs Labs: 07/18/18 11:12 07/18/18 11:12 PT 11.9 SECONDS (9.7-12.2) 07/17/18 14:38 INR 1.1 07/17/18 14:38 APTT 33 SECONDS (21-34) 07/17/18 14:38 - Constitutional Appears: Well, No Acute Distress - Head Exam Head Exam: ATRAUMATIC, NORMAL INSPECTION, NORMOCEPHALIC - Eye Exam Eye Exam: EOMI, Normal appearance - ENT Exam ENT Exam: Mucous Membranes Moist, Normal Exam - Neck Exam Neck Exam: Normal Inspection - Respiratory Exam Respiratory Exam: NORMAL BREATHING PATTERN. absent: Accessory Muscle Use - Cardiovascular Exam Cardiovascular Exam: REGULAR RHYTHM - GI/Abdominal Exam GI & Abdominal Exam: Soft. absent: Tenderness - Extremities Exam Extremities Exam: Full ROM - Neurological Exam Neurological Exam: Alert, Awake, CN II-XII Intact, Normal Gait, Oriented x3 - Psychiatric Exam Psychiatric exam: Normal Affect, Normal Mood - Skin Skin Exam: Dry, Intact, Normal Color, Warm Assessment and Plan - Assessment and Plan (Free Text) Assessment: 28 y/o male with ESRD s/p permacath Plan: Pt refusing AVF Continue HD via permacath Medical management per nephrology and primary may follow up at Dr. Roman's office to schedule for AVF at the future time. D/W Dr. Roman
[2018-07-18 16:15] VITALS: PULSE 93
== END 2018-07-18 16:50 | disposition home or self-care (01) | DRG 568 ==
LOC: C.ER 14:55 → C.9E 17:34 → MERGE 17:34 → C.6T 19:52
PROVIDERS: ADMIT Internal Medicine; ATTEND Internal Medicine
PROC: 5A1D70Z Performance of Urinary Filtration, Intermittent, Less than 6 Hours Per Day (ICD-10-PCS; principal; 2018-07-13 08:00)
PROC: 5A1D70Z Performance of Urinary Filtration, Intermittent, Less than 6 Hours Per Day (ICD-10-PCS; 2018-07-15)
PROC: 5A1D70Z Performance of Urinary Filtration, Intermittent, Less than 6 Hours Per Day (ICD-10-PCS; 2018-07-17)
DX: I12.0 Hypertensive chronic kidney disease with stage 5 chronic kidney disease or end stage renal disease (principal); N17.9 Acute kidney failure, unspecified; E87.2 Acidosis; F16.10 Hallucinogen abuse, uncomplicated; N18.6 End stage renal disease; Z68.42 Body mass index [BMI] 45.0-49.9, adult; R07.89 Other chest pain; F17.210 Nicotine dependence, cigarettes, uncomplicated; F10.10 Alcohol abuse, uncomplicated; F12.10 Cannabis abuse, uncomplicated; Z91.19 Patient's noncompliance with other medical treatment and regimen; I16.0 Hypertensive urgency; J45.909 Unspecified asthma, uncomplicated; H53.2 Diplopia; H93.19 Tinnitus, unspecified ear; F90.9 Attention-deficit hyperactivity disorder, unspecified type; D64.9 Anemia, unspecified; N28.1 Cyst of kidney, acquired; E66.9 Obesity, unspecified

== ENCOUNTER 2018-07-21 15:47 | Emergency (ER) | payer MEDICAID ==
[2018-07-21 15:48] VITALS: BMI 30.2
[2018-07-21 15:59] VITALS: TEMP 99
--- NOTE | 2018-07-21 16:38 | C.PDOC ---
History Of Present Illness Patient is a 28 y/o male with a new right-sided permacath for HD. Last dialyzed on Sunday07/19/18. Today patient presents requesting a dressing change to the permacath. Denies any pain, fever, chest pain, SOB. Time Seen by Provider: 07/21/18 16:10 Chief Complaint (Nursing): Wound Check History Per: Patient History/Exam Limitations: no limitations Onset/Duration Of Symptoms: Days Ago Current Symptoms Are (Timing): Still Present Past Medical History Reviewed: Historical Data, Nursing Documentation, Vital Signs Vital Signs: Last Vital Signs Temp 99 F 07/21/18 15:56 Pulse 109 H 07/21/18 15:56 Resp 18 07/21/18 15:56 BP 159/98 H 07/21/18 15:56 Pulse Ox 96 07/21/18 15:56 - Medical History PMH: Asthma, HTN, End Stage Renal Disease (on dialysis M-W-F) Other Surgeries: Left head surgery s/p TBI - [facility] (07/11/18) Family History: States: Unknown Family Hx - Social History Hx Tobacco Use: Yes Hx Alcohol Use: Yes Hx Substance Use: Yes - Immunization History Hx Tetanus Toxoid Vaccination: Yes Hx Influenza Vaccination: No Hx Pneumococcal Vaccination: No Review Of Systems Constitutional: Negative for: Fever, Chills Cardiovascular: Negative for: Chest Pain Respiratory: Negative for: Cough, Shortness of Breath Gastrointestinal: Negative for: Nausea, Vomiting Skin: Positive for: Other (Wound check: permacath to right chest wall). Negative for: Rash Neurological: Negative for: Weakness, Dizziness Physical Exam - Physical Exam Appears: Non-toxic, No Acute Distress Skin: Warm, Dry, No Rash Head: Normacephalic Eye(s): bilateral: Normal Inspection Chest: No Tenderness, Other (+right permacath, with scant crusting blood to entrance, no swelling) Cardiovascular: Rhythm Regular, No Murmur Respiratory: Normal Breath Sounds, No Accessory Muscle Use, No Rhonchi, No Wheezing Extremity: Normal ROM, No Calf Tenderness, No Swelling Neurological/Psych: Oriented x3, Normal Speech ED Course And Treatment O2 Sat by Pulse Oximetry: 96 (RA) Pulse Ox Interpretation: Normal Medical Decision Making Medical Decision Making: Impression: pt for bandage change. Dressing changed by SUKI Harmon. Will d/c. Disposition Counseled Patient/Family Regarding: Diagnosis, Need For Followup - Disposition Referrals: Evan Roman Jr., MD [Staff Provider] - Disposition: HOME/ ROUTINE Disposition Time: 16:37 Condition: GOOD Additional Instructions: Keep dressing clean and dry. Follow up with Dr Roman next week. GO for dial ysis as scheduled. Forms: [facility] (Greek), General Discharge Instructions - Clinical Impression Clinical Impression: Encounter for change of dressing - PA / DOCUMENTATION LIAISON / Resident Statement MD/DO has reviewed & agrees with the documentation as recorded. - Scribe Statement The provider has reviewed the documentation as recorded by the Scribe (Ngozi Hall) All medical record entries made by the Scribe were at my direction and personally dictated by me. I have reviewed the chart and agree that the record accurately reflects my personal performance of the history, physical exam, medical decision making, and the department course for this patient. I have also personally directed, reviewed, and agree with the discharge instructions and disposition.
[2018-07-21 16:41] VITALS: BP 146/89; PULSE 84; RESP 16
[2018-07-25 03:43] VITALS: O2SAT 96
== END 2018-07-21 16:46 | disposition home or self-care (01) ==
LOC: MERGE 15:47 → C.ER 15:47
DX: Z48.01 Encounter for change or removal of surgical wound dressing (principal)

== ENCOUNTER 2018-07-28 15:47 | Inpatient (IN) | payer MEDICAID ==
[2018-07-28 15:48] VITALS: BMI 45.7
[2018-07-28] MEDS ORDERED: Sodium Chloride 0.9% 1,000 ML IV SCH (16:00)
--- NOTE | 2018-07-28 16:12 | C.PDOC ---
History Of Present Illness Patient BIBA for evaluation of left arm/leg numbness, left face numbness and B/L blurry vision that began approx 30 min [employer]. He denies chest pain, SOB, abdominal pain, nausea/vomiting, facial droop, slurred speech, extremity weaknes s, gait changes. He has PMhx of HTN, ESRD on HD (M,W,F), states he started dialysis only two weeks ago. Patient is a poor historian, does not have PMD and does not know who [employer] principal is. Time Seen by Provider: 07/28/18 15:54 Chief Complaint (Nursing): Weakness/Neurological Deficit History Per: Patient, EMS History/Exam Limitations: other (poor historian ) Onset/Duration Of Symptoms: Mins (30 min [employer] SAL[employer]) Current Symptoms Are (Timing): Still Present Past Medical History Reviewed: Historical Data, Nursing Documentation, Vital Signs Vital Signs: Last Vital Signs Temp 98.1 F 07/28/18 15:55 Pulse 84 07/28/18 15:55 Resp 17 07/28/18 15:55 BP Pulse Ox 95 07/28/18 15:55 - Medical History PMH: HTN, Chronic Kidney Disease - [facility] (07/23/18) Family History: States: No Known Family Hx - Social History Hx Alcohol Use: No Hx Substance Use: No - Immunization History Hx Tetanus Toxoid Vaccination: No Hx Influenza Vaccination: No Hx Pneumococcal Vaccination: No Review Of Systems Constitutional: Negative for: Fever, Chills Cardiovascular: Negative for: Chest Pain, Palpitations Respiratory: Negative for: Shortness of Breath Gastrointestinal: Negative for: Nausea, Vomiting, Abdominal Pain Neurological: Positive for: Numbness (left arm and left leg, left face), Other (blurry vision). Negative for: Weakness, Incoordination, Change in Speech, Altered Mental Status, Headache ED Course And Treatment - Laboratory Results Result Diagrams: 08/01/18 07:39 08/01/18 07:39 ECG: Interpreted By Me, Viewed By Me (NSR 77bpm, normal axis, small Q waves II, III, no acute ST changes) ECG Interpretation: Abnormal O2 Sat by Pulse Oximetry: 95 (RA) Pulse Ox Interpretation: Normal - Radiology CXR: Interpreted by Me, Viewed By Me CXR Interpretation: Yes: No Acute Disease. No: Infiltrates - CT Scan/US ct head Other Rad Studies (CT/US): Read By Radiologist, Radiology Report Reviewed CT/US Interpretation: Accession No. : [id number]. Patient Name / ID : SUE CHUNG / [id number]. Exam Date : 07/28/2018 16:04:49 ( Approved ). Study Comment : Sex / Age : M / 28Y. Creator : Lillian. Shabana Wu ictator : Cosme Junior MD. Healthcare Corporate Account Director : Kitchen Mechanic : Cosme Junior MD. Approver2 : Report Date : 07/28/2018 16:09:44. My Comment : . Date of service: 07/28/2018. PROCEDURE: CT HEAD WITHOUT CONTRAST. HISTORY: Code Stroke. COMPARISON: None available. TECHNIQUE: Axial computed tomography images were obtained through the head/brain without intravenous contrast. Radiation dose: Total exam DLP = 1126.92 mGy-cm. This CT exam was performed using one or more of the following dose reduction techniques: Automated exposure control, adjustment of the mA and/or kV according to patient size, and/or use of iterative reconstruction technique. FINDINGS: HEMORRHAGE: No intracranial hemorrhage. BRAIN: Normal alves-white matter differentiation and density are appreciated throughout the cerebrum and cerebellum with the brainstem appearing unremarkable as well. There is no mass effect. There is no suspicious extra-axial fluid collection and the midline brain anatomy appears diffusely unremarkable. VENTRICLES: Unremarkable. No hydrocephalus. CALVARIUM: Unremarkable. PARANASAL SINUSES: Unremarkable as visualized. No significant inflammatory changes. MASTOID AIR CELLS: Unremarkable as visualized. No inflammatory changes. OTHER FINDINGS: None. IMPRESSION: Unremarkable noncontrast CT of the Head. Follow-up CT or MRI are available as clinically warranted. Findings discussed with Dr. Candelaria with written down and read back verification 07/28/2018, 4:14 p.m.. Progress Note: Code stroke called. Blood work, CT head, EKG ordered and reviewed. Patient without weakness, facial droop, slurred speech, ataxia, apahsia, etc - does not meet tPA criteria (neurology in agreement). - Physician Consult Information Physician Contacted: Ponce Mendenhall Outcome Of Conversation: Discussed patient with Dr. Mendenhall, agrees with admission for left arm/leg numbness, possible CVA, ESRD oN HD. Dr. Aguiar also spoken with for neurology, will see patient on consult. Critical Care Time - Critical Care Note Total Time (in mins): 35 Documented critical care: time excludes all time spent performing seperately billable procedures. NIHSS Stroke Scale 2 - Date/Time Evaluation Performed Date Performed: 07/28/18 Time Performed: 15:55 When Was NIHSS Performed: Baseline - How Severe is the Stroke Level of Consciousness: 0=Alert LOC to Questions: 0=Both comments correct LOC to commands: 0=Obeys both correctly Best Gaze: 0=Normal Visual: 0=No visual loss Facial: 0=Normal Motor Arm - Left: 0=No drift Motor Arm - Right: 0=No drift Motor Leg - Left: 0=No drift Motor Leg - Right: 0=No drift Limb Ataxia: 0=Absent Sensory: 1=Mild to moderate loss (left arm/leg/face) Best Language: 0=No aphasia Dysarthia: 0=Normal articulation Extinction & Inattention (Neglect): 0=Normal, no object Score: 1 rTPA Inclusion/Exclusion - Refusal of Treatment Patient Refused Treatment: No - Inclusion Criteria for Altepase Patient is 18 years or Older: Yes The Clinical Diagnosis of Ischemic Stroke That is Causing a Potentially Disabling Neurological Deficit: No Time of Onset is Well Established to be Less Than 270 Minute Before Treatment Would Begin: Yes Risk/Benefit Discussed With Patient/Family Member Present: No Disposition - Disposition Disposition: HOSPITALIZED Disposition Time: 18:22 Condition: STABLE - Clinical Impression Clinical Impression: Left leg numbness, Left arm numbness, CVA (cerebral vascular accident), ESRD (end stage renal disease) Decision To Admit - Pt Status Changed To: Hospital Disposition Of: Inpatient - Admit Certification Admit to Inpatient:: After my assessment, the patient will require hospitalization for at least two midnights. This is because of the severity of symptoms shown, intensity of services needed, and/or the medical risk in this patient being treated as an outpatient. - InPatient: Physician Admission Certification: I certify that this patient requires 2 or more midnights of care for the following reason:: see notes - . Bed Request Type: Telemetry Admitting Physician: Ponce Mendenhall Patient Diagnosis: Left leg numbness, Left arm numbness, CVA (cerebral vascular accident), ESRD (end stage renal disease)
--- NOTE | 2018-07-28 16:20 | CT ---
Date of service: 07/28/2018 PROCEDURE: CT HEAD WITHOUT CONTRAST. HISTORY: Code Stroke COMPARISON: None available. TECHNIQUE: Axial computed tomography images were obtained through the head/brain without intravenous contrast. Radiation dose: Total exam DLP = 1126.92 mGy-cm. This CT exam was performed using one or more of the following dose reduction techniques: Automated exposure control, adjustment of the mA and/or kV according to patient size, and/or use of iterative reconstruction technique. FINDINGS: HEMORRHAGE: No intracranial hemorrhage. BRAIN: Normal alves-white matter differentiation and density are appreciated throughout the cerebrum and cerebellum with the brainstem appearing unremarkable as well. There is no mass effect. There is no suspicious extra-axial fluid collection and the midline brain anatomy appears diffusely unremarkable. VENTRICLES: Unremarkable. No hydrocephalus. CALVARIUM: Unremarkable. PARANASAL SINUSES: Unremarkable as visualized. No significant inflammatory changes. MASTOID AIR CELLS: Unremarkable as visualized. No inflammatory changes. OTHER FINDINGS: None. IMPRESSION: Unremarkable noncontrast CT of the Head. Follow-up CT or MRI are available as clinically warranted. Findings discussed with Dr. Candelaria with written down and read back verification 07/28/2018, 4:14 p.m..
[2018-07-28 17:01] LABS: BASO # 0.1 K/uL (0.0-0.2); BASO % 0.9 % (0.0-2.0); EOS # 0.3 K/uL (0.0-0.7); EOS % 4.3 % (0.0-4.0); HEMOGLOBIN 9.4 g/dL (12.0-18.0); LYMPH # 1.9 K/uL (1.0-4.3); LYMPH % 24.9 % (20.0-40.0); MEAN CELL VOLUME 90.1 fL (80.0-94.0); MEAN CORPUSCULAR HEMOGLOBIN 31.9 pg (27.0-31.0); MEAN CORPUSCULAR HGB CONC 35.4 g/dL (33.0-37.0); MEAN PLATELET VOLUME 9.8 fL (7.2-11.7); MONO # 0.7 K/uL (0.0-0.8); MONO % 9.3 % (0.0-10.0); NEUT # 4.7 K/uL (1.8-7.0); NEUT % 60.6 % (50.0-75.0); RBC 2.96 Mil/uL (4.40-5.90); RED CELL DISTRIBUTION WIDTH 13.3 % (11.5-14.5); WHITE BLOOD COUNT 7.7 K/uL (4.8-10.8)
[2018-07-28 17:03] LABS: ALB/GLOB RATIO 1.3 (1.0-2.1); ALBUMIN 4.5 g/dL (3.5-5.0); ALT/SGPT 23 U/L (21-72); AST/SGOT 15 U/L (17-59); BLOOD UREA NITROGEN 70 mg/dL (9-20); CALCIUM 8.5 mg/dl (8.6-10.4); GFR NON-AFRICAN AMERICAN 6; HDL CHOLESTEROL 24 mg/dL (30-70)
[2018-07-28 17:06] LABS: INR 1.1; PROTHROMBIN TIME 12.1 SECONDS (9.7-12.2)
[2018-07-28 17:09] LABS: LDL CHOLESTEROL 119 mg/dL (0-129)
--- NOTE | 2018-07-28 17:28 | RAD ---
Date of service: 07/28/2018 HISTORY: Code Stroke COMPARISON: No prior. FINDINGS: LUNGS: No active pulmonary disease. PLEURA: No significant pleural effusion identified, no pneumothorax apparent. CARDIOVASCULAR: Total right central venous dialysis catheter in situ by an apparent right internal jugular approach with the tip terminating at the right atrium. No aortic atherosclerotic calcification present. Cardiomegaly noted. Mild pulmonary vascular congestion apparent. OSSEOUS STRUCTURES: No significant abnormalities. VISUALIZED UPPER ABDOMEN: Normal. OTHER FINDINGS: None. IMPRESSION: No acute pulmonary disease appreciated however mild pulmonary vascular congestion evident with cardiomegaly apparent as well.
--- NOTE | 2018-07-29 10:12 | CT ---
Date of service: 07/29/2018 PROCEDURE: CT Angiography of the Brain and Neck. HISTORY: left leg/arm numbness COMPARISON: None available. TECHNIQUE: CT angiography of the head and neck was performed following intravenous contrast administration. Coronal and sagittal maximum intensity projection reformatted images were generated. Contrast Dose: Visipaque 320, 100 cc Radiation dose: Total exam DLP = 802.35 mGy-cm. This CT exam was performed using one or more of the following dose reduction techniques: Automated exposure control, adjustment of the mA and/or kV according to patient size, and/or use of iterative reconstruction technique. FINDINGS: INTERNAL CEREBRAL ARTERIES: Unremarkable. The skull base, petrous, cavernous and supraclinoid segments are bilaterally widely patent. ANTERIOR CEREBRAL ARTERIES: Unremarkable. A1 and A2 segments are widely patent. Smaller distal branches unremarkable, as visualized. MIDDLE CEREBRAL ARTERIES: Unremarkable. M1 and M2 segments are widely patent. Perisylvian branches grossly symmetric. POSTERIOR CIRCULATION: Basilar Artery: Unremarkable. Distal Vertebral Arteries: Right dominant vertebrobasilar circulation with hypoplastic distal left vertebral artery identified. Posterior Cerebral Arteries: Unremarkable. Posterior Inferior Cerebellar Arteries: Unremarkable. NECK CTA: Common Carotid arteries: The bilateral common carotid appear widely patent from their origins to their bifurcations with no significant stenosis appreciated. No evidence to suggest common carotid artery dissection. Internal Carotid arteries: No significant stenosis is appreciated throughout the cervical internal carotid artery segments bilaterally and there is no evidence of dissection either. External Carotid arteries: Appear unremarkable bilaterally. Vertebral arteries: The bilateral vertebral arteries appear normal in caliber from their origins to their distal cervical segments. No significant stenosis or definite pattern of dissection. ANEURYSM/ VASCULAR MALFORMATIONS: None. OTHER FINDINGS: None. IMPRESSION: No significant CT findings in CT angiography of the brain and neck.
[2018-07-29] MEDS ORDERED: EPOETIN ALFA 4,000 UNIT/ML ML Dialysis IV SCH (11:00)
--- NOTE | 2018-07-29 12:52 | CARD ---
APPROVED REPORT Date of service: 07/28/2018 EKG Measurement Heart [id number] <Conclusion> Normal sinus rhythm Cannot rule out Anterior infarct, age undetermined Abnormal ECG
--- NOTE | 2018-07-29 13:15 | CP.PCM.CON ---
History of Present Illness - History of Present Illness History of Present Illness: Patient BIBA for evaluation of left arm/leg numbness, left face numbness and B/L blurry vision that began approx 30 min [employer]. He denies chest pain, SOB, abdominal pain, nausea/vomiting, facial droop, slurred speech, extremity weakness, gait changes. He has PMhx of HTN, ESRD on HD (M,W,F), states he started dialysis only two weeks ago. Patient is a poor historian, does not have PMD and does not know who aoc director combat operations officer is. PMH: HTN IVDA ESRD PSH: permcath Review of Systems - Review of Systems Systems not reviewed;Unavailable: Uncooperative Past Patient History - Past Medical History & Family History Past Medical History?: Yes Past Family History: Reviewed and not pertinent - Past Social History Smoking Status: Never Smoked Chewing Tobacco Use: No Cigar Use: No Alcohol: > 2 Drinks/Day Drugs: Opiates Home Situation {Lives}: Alone - CARDIAC Hx Hypertension: Yes - PULMONARY Hx Respiratory Disorders: No - NEUROLOGICAL Hx Neurological Disorder: No - HEENT Hx HEENT Problems: No - RENAL Hx Chronic Kidney Disease: Yes Hx Dialysis: Yes (pt is new dialysis) Type of Dialysis Access: R chest permacath Date of Last Dialysis Treatment: 07/26/18 - ENDOCRINE/METABOLIC Hx Endocrine Disorders: No - HEMATOLOGICAL/ONCOLOGICAL Hx Blood Disorders: No - INTEGUMENTARY Hx Dermatological Problems: Yes Other/Comment: 07-23-18 MULTIPLE TATTOOS ALL OVER BODY - MUSCULOSKELETAL/RHEUMATOLOGICAL Hx Musculoskeletal Disorders: No Hx Falls: No - GASTROINTESTINAL Hx Gastrointestinal Disorders: No - GENITOURINARY/GYNECOLOGICAL Hx Genitourinary Disorders: No - PSYCHIATRIC Hx Substance Use: No - SURGICAL HISTORY Hx Surgeries: Yes Other/Comment: dialysis port insertion - ANESTHESIA Hx Anesthesia: Yes Hx Anesthesia Reactions: No Hx Malignant Hyperthermia: No Meds Allergies/Adverse Reactions: Allergies Allergy/AdvReac Type Severity Reaction Status Date / Time FISH Allergy ANAPHYLAXIS Verified 07/28/18 15:59 - Medications Medications: Current Medications Aspirin (Aspirin) 325 mg PO DAILY [facility] Epoetin Ovi (Procrit) 4,000 unit IV MWF [facility] Pneumococcal Polyvalent Vaccine (Pneumovax 23 Vaccine) 0.5 ml IM .ONCE ONE Stop: 07/31/18 12:01 Vitamin B Complex/Vit C/Folic Acid (Nephro-Edi) 1 tab PO 0800 [facility] Physical Exam - Constitutional Appears: No Acute Distress, Chronically Ill - Head Exam Head Exam: ATRAUMATIC, NORMAL INSPECTION - Eye Exam Eye Exam: EOMI, Normal appearance - Neck Exam Neck exam: Positive for: Normal Inspection. Negative for: Tenderness - Respiratory Exam Respiratory Exam: Clear to Auscultation Bilateral, NORMAL BREATHING PATTERN - Cardiovascular Exam Cardiovascular Exam: REGULAR RHYTHM - GI/Abdominal Exam GI & Abdominal Exam: Soft. absent: Tenderness - Extremities Exam Extremities exam: Positive for: normal inspection. Negative for: pedal edema - Neurological Exam Neurological exam: Alert, CN II-XII Intact - Skin Skin Exam: Dry, Warm Results - Vital Signs Recent Vital Signs: Last Vital Signs Temp 97.4 F L 07/29/18 08:35 Pulse 81 07/29/18 08:35 Resp 20 07/29/18 08:35 BP 152/99 H 07/29/18 08:35 Pulse Ox 95 07/29/18 08:35 - Labs Result Diagrams: 07/28/18 16:41 07/28/18 16:41 Labs: Laboratory Results - last 24 hr 07/28/18 07/28/18 07/28/18 15:53 16:41 16:41 WBC 7.7 RBC 2.96 L Hgb 9.4 L Hct 26.7 L MCV 90.1 MCH 31.9 H MCHC 35.4 RDW 13.3 Plt Count 271 MPV 9.8 Neut % (Auto) 60.6 Lymph % (Auto) 24.9 [place] % (Auto) 9.3 Eos % (Auto) 4.3 H Baso % (Auto) 0.9 Neut # (Auto) 4.7 Lymph # (Auto) 1.9 [place] # (Auto) 0.7 Eos # (Auto) 0.3 Baso # (Auto) 0.1 PT 12.1 INR 1.1 APTT 35 H Sodium Potassium Chloride Carbon Dioxide Anion Gap BUN Creatinine Est GFR ( Amer) Est GFR (Non-Af Amer) POC Glucose (mg/dL) 114 H Random Glucose Hemoglobin A1c Calcium Total Bilirubin AST ALT Alkaline Phosphatase Troponin I Total Protein Albumin Globulin Albumin/Globulin Ratio Triglycerides Cholesterol LDL Cholesterol Direct HDL Cholesterol Blood Type Antibody Screen 07/28/18 07/28/18 07/28/18 16:41 16:41 16:41 WBC RBC Hgb Hct MCV MCH MCHC RDW Plt Count MPV Neut % (Auto) Lymph % (Auto) [place] % (Auto) Eos % (Auto) Baso % (Auto) Neut # (Auto) Lymph # (Auto) [place] # (Auto) Eos # (Auto) Baso # (Auto) PT INR APTT Sodium 143 Potassium 4.0 Chloride 102 Carbon Dioxide 21 L Anion Gap 24 H BUN 70 H Creatinine 10.6 H* Est GFR ( Amer) 7 Est GFR (Non-Af Amer) 6 POC Glucose (mg/dL) Random Glucose 90 Hemoglobin A1c 5.3 Calcium 8.5 L Total Bilirubin 0.5 AST 15 L D ALT 23 Alkaline Phosphatase 108 Troponin I < 0.0120 Total Protein 7.9 Albumin 4.5 Globulin 3.4 Albumin/Globulin Ratio 1.3 Triglycerides 796 H Cholesterol 236 H LDL Cholesterol Direct 119 HDL Cholesterol 24 L Blood Type O NEGATIVE Antibody Screen Negative 07/29/18 12:10 WBC RBC Hgb Hct MCV MCH MCHC RDW Plt Count MPV Neut % (Auto) Lymph % (Auto) [place] % (Auto) Eos % (Auto) Baso % (Auto) Neut # (Auto) Lymph # (Auto) [place] # (Auto) Eos # (Auto) Baso # (Auto) PT INR APTT Sodium Potassium Chloride Carbon Dioxide Anion Gap BUN Creatinine Est GFR ( Amer) Est GFR (Non-Af Amer) POC Glucose (mg/dL) 111 H Random Glucose Hemoglobin A1c Calcium Total Bilirubin AST ALT Alkaline Phosphatase Troponin I Total Protein Albumin Globulin Albumin/Globulin Ratio Triglycerides Cholesterol LDL Cholesterol Direct HDL Cholesterol Blood Type Antibody Screen Assessment & Plan (1) ESRD (end stage renal disease) Status: Acute (2) Hypertensive chronic kidney disease with stage 5 chronic kidney disease or end stage renal disease Status: Acute (3) Intravenous drug abuse Status: Acute - Assessment and Plan (Free Text) Plan: Dialysis MWF Medical team workup
--- NOTE | 2018-07-29 14:37 | CP.PCM.HP ---
History of Present Illness - History of Present Illness History of Present Illness: COMPREHENSIVE HISTORY & PHYSICAL EXAM Patient was admitted from the emergency room with left-sided numbness and no motor deficit. Patient recently was diagnosed with chronic renal failure on hemodialysis. Patient is noncompliant with hemodialysis and missed a few sessions which he presented himself to bed on hospital recently for dialysis. Patient stated 30 minutes prior to admission patient had numbness on the left side of the face left upper and lower extremity. There was no any motor deficit and a loss of consciousness or any other neurological symptom. Patient has a history of hypertension and is also noncompliant with his medication. HPI PAST HIST. PERSONAL HIST: Smoking. N Alcohol. N Allergy N Travel_- . FAMILY HIST : ROS : Constitutional: Negative for weight change, chills, night sweats, fatigue and usage of assist device. Eyes: Negative for redness, swelling, itching, discharge, vision changes, blurry vision, double vision, glaucoma, cataracts, Ears: Negative for hearing loss, ringing, , tinnitus, vertigo Nose: Negative for rhinorrhea, stuffiness, sniffing, itching, postnasal drip, discoloration, nasal congestion and epistaxis. Throat: Negative for throat clearing, sore throat, hoarseness, difficulty swallowing and difficulty speaking. Respiratory: Negative for cough, , sputum production, chest tightness, wheezing, pleuritic chest pain ,daytime somnolence, chronic cough, hemoptysis, snoring at night, Cardiovascular: Negative for chest pain, palpitations, orthopnea, PND, Edema of legs, leg cramps, angina, claudication, , irregular heartbeat, Neurology: Negative for irritability, muscle weaknessseizures, tremors, migraines, slurred speech, syncope, memory loss, mood changes, recurrent headaches Gastrointestinal: Negative for difficulty swallowing, diarrhea, constipation, black stools, rectal bleeding, nausea, flatulence, reflux, poor appetite, changes in bowel habits, abdominal pain Genitourinary: Negative for frequent urination, hematuria, discharge, incontinence, urinary retention, frequent UTI, Psychiatric: Negative for depress ion, anxiety/panic, suicidal tendencies, Musculoskeletal: Negative for swollen joints, back pain, , neck pain, morning stiffness of joints, . Skin: Negative for rash, ulcers, itching, dry skin and pigmented lesions. P/E: Constitutional: Appears stated age and in no apparent distress. Head: Normocephalic. Ears: External ear canals patent without inflammation. Tympanic membranes intact with normal light reflex and landmark. Eyes: Pupils are central, bilaterally equal, symmetrical and reacts to light with normal movements and no icterus or pallor. Nose: External nares are patent. Mucosa is pink Mouth-Throat: Good general appearance and condition. No post-pharyngeal/oropharyngeal erythema and tonsillar hypertrophy. Good dental hygiene. Neck-Lymphatic: Neck is supple with normal ROM, no thyromegaly, lymph nodes or masses. JVD is normal with no carotid bruit. Lungs: Clear to percussion and auscultation with bilateral normal air entry. Cardiovascular: S1 and S2 are normal with no murmurs, gallops and rub. GI Exam: No hepatomegaly. Abdomen is soft and non-tender. No Organomegaly , masses or hernias are evident and bowel sounds are normal and active. Neurology: Higher function and all cranial nerves intact, with no gross motor or sensory deficit. Superficial and deep reflexes are normal with downwards planters. No cerebellar deficit with normal gait. Musculoskeletal: No tender spots with normal curvature of the spine with no swelling or restricted ROM of the small and large joints. Extremities: Homans sign absent. Intact pulses with no pitting edema, calf tenderness or skin color changes. Skin: No rash, eruptions or abnormal skin pigmentation LAB/RADIOLOGY: ASSESMENT : Rule out TIA Chronic renal failure on hemodialysis Hypertension PLAN: Neuro evaluation and continue present dialysis. Present on Admission - Present on Admission Any Indicators Present on Admission: No Past Patient History - Past Medical History & Family History Past Medical History?: Yes Past Family History: Reviewed and not pertinent - Past Social History Smoking Status: Never Smoked Chewing Tobacco Use: No Cigar Use: No Alcohol: > 2 Drinks/Day Drugs: Opiates Home Situation {Lives}: Alone - CARDIAC Hx Hypertension: Yes - PULMONARY Hx Respiratory Disorders: No - NEUROLOGICAL Hx Neurological Disorder: No - HEENT Hx HEENT Problems: No - RENAL Hx Chronic Kidney Disease: Yes Hx Dialysis: Yes (pt is new dialysis) Type of Dialysis Access: R chest permacath Date of Last Dialysis Treatment: 07/26/18 - ENDOCRINE/METABOLIC Hx Endocrine Disorders: No - HEMATOLOGICAL/ONCOLOGICAL Hx Blood Disorders: No - INTEGUMENTARY Hx Dermatological Problems: Yes Other/Comment: 07-23-18 MULTIPLE TATTOOS ALL OVER BODY - MUSCULOSKELETAL/RHEUMATOLOGICAL Hx Musculoskeletal Disorders: No Hx Falls: No - GASTROINTESTINAL Hx Gastrointestinal Disorders: No - GENITOURINARY/GYNECOLOGICAL Hx Genitourinary Disorders: No - PSYCHIATRIC Hx Substance Use: No - SURGICAL HISTORY Hx Surgeries: Yes Other/Comment: dialysis port insertion - ANESTHESIA Hx Anesthesia: Yes Hx Anesthesia Reactions: No Hx Malignant Hyperthermia: No Meds Allergies/Adverse Reactions: Allergies Allergy/AdvReac Type Severity Reaction Status Date / Time FISH Allergy ANAPHYLAXIS Verified 07/28/18 15:59 Results - Vital Signs Recent Vital Signs: Last Vital Signs Temp 97.4 F L 07/29/18 08:35 Pulse 81 07/29/18 08:35 Resp 20 07/29/18 08:35 BP 152/99 H 07/29/18 08:35 Pulse Ox 95 07/29/18 08:35 - Labs Result Diagrams: 07/28/18 16:41 07/28/18 16:41 Labs: Laboratory Results - last 24 hr 07/28/18 07/28/18 07/28/18 15:53 16:41 16:41 WBC 7.7 RBC 2.96 L Hgb 9.4 L Hct 26.7 L MCV 90.1 MCH 31.9 H MCHC 35.4 RDW 13.3 Plt Count 271 MPV 9.8 Neut % (Auto) 60.6 Lymph % (Auto) 24.9 [place] % (Auto) 9.3 Eos % (Auto) 4.3 H Baso % (Auto) 0.9 Neut # (Auto) 4.7 Lymph # (Auto) 1.9 [place] # (Auto) 0.7 Eos # (Auto) 0.3 Baso # (Auto) 0.1 PT 12.1 INR 1.1 APTT 35 H Sodium Potassium Chloride Carbon Dioxide Anion Gap BUN Creatinine Est GFR ( Amer) Est GFR (Non-Af Amer) POC Glucose (mg/dL) 114 H Random Glucose Hemoglobin A1c Calcium Total Bilirubin AST ALT Alkaline Phosphatase Troponin I Total Protein Albumin Globulin Albumin/Globulin Ratio Triglycerides Cholesterol LDL Cholesterol Direct HDL Cholesterol Blood Type Antibody Screen 07/28/18 07/28/18 07/28/18 16:41 16:41 16:41 WBC RBC Hgb Hct MCV MCH MCHC RDW Plt Count MPV Neut % (Auto) Lymph % (Auto) [place] % (Auto) Eos % (Auto) Baso % (Auto) Neut # (Auto) Lymph # (Auto) [place] # (Auto) Eos # (Auto) Baso # (Auto) PT INR APTT Sodium 143 Potassium 4.0 Chloride 102 Carbon Dioxide 21 L Anion Gap 24 H BUN 70 H Creatinine 10.6 H* Est GFR ( Amer) 7 Est GFR (Non-Af Amer) 6 POC Glucose (mg/dL) Random Glucose 90 Hemoglobin A1c 5.3 Calcium 8.5 L Total Bilirubin 0.5 AST 15 L D ALT 23 Alkaline Phosphatase 108 Troponin I < 0.0120 Total Protein 7.9 Albumin 4.5 Globulin 3.4 Albumin/Globulin Ratio 1.3 Triglycerides 796 H Cholesterol 236 H LDL Cholesterol Direct 119 HDL Cholesterol 24 L Blood Type O NEGATIVE Antibody Screen Negative 07/29/18 12:10 WBC RBC Hgb Hct MCV MCH MCHC RDW Plt Count MPV Neut % (Auto) Lymph % (Auto) [place] % (Auto) Eos % (Auto) Baso % (Auto) Neut # (Auto) Lymph # (Auto) [place] # (Auto) Eos # (Auto) Baso # (Auto) PT INR APTT Sodium Potassium Chloride Carbon Dioxide Anion Gap BUN Creatinine Est GFR ( Amer) Est GFR (Non-Af Amer) POC Glucose (mg/dL) 111 H Random Glucose Hemoglobin A1c Calcium Total Bilirubin AST ALT Alkaline Phosphatase Troponin I Total Protein Albumin Globulin Albumin/Globulin Ratio Triglycerides Cholesterol LDL Cholesterol Direct HDL Cholesterol Blood Type Antibody Screen
--- NOTE | 2018-07-29 16:01 | CP.PCM.CON ---
History of Present Illness - History of Present Illness History of Present Illness: General Surgery Consult Note Physician: Dr. Roman HPI: 28 year old male with PMHx of HTN and ESRD, presented to the ED on 07/28 due to left sided weakness and "not feeling well." Patient also complains of shortness of breath on exertion. Patient was recently started on hemodialysis two weeks ago. According to patient's chart, patient has not been compliant with hemodialysis treatments. Patient states he still makes urine. Patient denies chest pain, nausea, vomiting, constipation, diarrhea, abdominal pain, or hematuria. PMHx: HTN, IVDA, ESRD on hemodialysis PSH: Permacath 2 weeks ago Allergies: Fish; NKDA Social Hx: Currently lives with grandmother. Does not currently work. Smokes cigarettes 1PPD for the past 14 years. Patient denies alcohol use. Patient states he uses PCP and marijuana; patient denies heroin or cocaine use. Review of Systems - Review of Systems All systems: reviewed and no additional remarkable complaints except (as per HPI) Past Patient History - Infectious Disease Hx of Infectious Diseases: None - Tetanus Immunizations Tetanus Immunization: Unknown - Past Medical History & Family History Past Medical History?: Yes Past Family History: Reviewed and not pertinent - Past Social History Smoking Status: Heavy Smoker > 10 Cigarettes Daily Chewing Tobacco Use: No Cigar Use: No Alcohol: > 2 Drinks/Day Drugs: Opiates Home Situation {Lives}: Alone - CARDIAC Hx Hypertension: Yes - PULMONARY Hx Respiratory Disorders: No - NEUROLOGICAL Hx Neurological Disorder: No - HEENT Hx HEENT Problems: No - RENAL Hx Chronic Kidney Disease: Yes Hx Dialysis: Yes (pt is new dialysis) Type of Dialysis Access: R chest permacath Date of Last Dialysis Treatment: 07/26/18 - ENDOCRINE/METABOLIC Hx Endocrine Disorders: No - HEMATOLOGICAL/ONCOLOGICAL Hx Blood Disorders: No - INTEGUMENTARY Hx Dermatological Problems: Yes Other/Comment: 07-23-18 MULTIPLE TATTOOS ALL OVER BODY - MUSCULOSKELETAL/RHEUMATOLOGICAL Hx Musculoskeletal Disorders: No Hx Falls: No - GASTROINTESTINAL Hx Gastrointestinal Disorders: No - GENITOURINARY/GYNECOLOGICAL Hx Genitourinary Disorders: No - PSYCHIATRIC Hx Substance Use: No - SURGICAL HISTORY Hx Surgeries: Yes Other/Comment: dialysis port insertion - ANESTHESIA Hx Anesthesia: Yes Hx Anesthesia Reactions: No Hx Malignant Hyperthermia: No Meds Allergies/Adverse Reactions: Allergies Allergy/AdvReac Type Severity Reaction Status Date / Time FISH Allergy ANAPHYLAXIS Verified 07/28/18 15:59 - Medications Medications: Current Medications Aspirin (Aspirin) 325 mg PO DAILY [facility] Last Admin: 07/29/18 10:00 Dose: Not Given Epoetin Ovi (Procrit) 4,000 unit IV [facility] Pneumococcal Polyvalent Vaccine (Pneumovax 23 Vaccine) 0.5 ml IM .ONCE ONE Stop: 07/31/18 12:01 Vitamin B Complex/Vit C/Folic Acid (Nephro-Edi) 1 tab PO 0800 [facility] Physical Exam - Constitutional Appears: Non-toxic, No Acute Distress - Head Exam Head Exam: ATRAUMATIC, NORMAL INSPECTION - Eye Exam Eye Exam: EOMI, Normal appearance Pupil Exam: PERRL - ENT Exam ENT Exam: Mucous Membranes Dry, Normal Exam - Neck Exam Neck exam: Positive for: Normal Inspection Additional comments: Trachea Midline - Respiratory Exam Respiratory Exam: Clear to Auscultation Bilateral, NORMAL BREATHING PATTERN. absent: Accessory Muscle Use, Respiratory Distress - Cardiovascular Exam Cardiovascular Exam: REGULAR RHYTHM, +S1, +S2 - GI/Abdominal Exam GI & Abdominal Exam: Normal Bowel Sounds, Soft. absent: Distended, Guarding, Rebound, Tenderness - Rectal Exam Rectal Exam: Deferred - Extremities Exam Extremities exam: Positive for: normal inspection. Negative for: calf tenderness, pedal edema - Back Exam Back exam: NORMAL INSPECTION - Neurological Exam Neurological exam: Alert, Oriented x3 - Psychiatric Exam Psychiatric exam: Flat Affect, Normal Mood - Skin Skin Exam: Dry, Normal Color, Warm Results - Vital Signs Recent Vital Signs: Last Vital Signs Temp 97.8 F 07/29/18 15:10 Pulse 86 07/29/18 15:10 Resp 18 07/29/18 15:10 BP 182/106 H 07/29/18 15:40 Pulse Ox 96 07/29/18 15:10 - Labs Result Diagrams: 07/28/18 16:41 07/28/18 16:41 Labs: Laboratory Results - last 24 hr 07/28/18 07/28/18 07/28/18 15:53 16:41 16:41 WBC 7.7 RBC 2.96 L Hgb 9.4 L Hct 26.7 L MCV 90.1 MCH 31.9 H MCHC 35.4 RDW 13.3 Plt Count 271 MPV 9.8 Neut % (Auto) 60.6 Lymph % (Auto) 24.9 [place] % (Auto) 9.3 Eos % (Auto) 4.3 H Baso % (Auto) 0.9 Neut # (Auto) 4.7 Lymph # (Auto) 1.9 [place] # (Auto) 0.7 Eos # (Auto) 0.3 Baso # (Auto) 0.1 PT 12.1 INR 1.1 APTT 35 H Sodium Potassium Chloride Carbon Dioxide Anion Gap BUN Creatinine Est GFR ( Amer) Est GFR (Non-Af Amer) POC Glucose (mg/dL) 114 H Random Glucose Hemoglobin A1c Calcium Total Bilirubin AST ALT Alkaline Phosphatase Troponin I Total Protein Albumin Globulin Albumin/Globulin Ratio Triglycerides Cholesterol LDL Cholesterol Direct HDL Cholesterol Blood Type Antibody Screen 07/28/18 07/28/18 07/28/18 16:41 16:41 16:41 WBC RBC Hgb Hct MCV MCH MCHC RDW Plt Count MPV Neut % (Auto) Lymph % (Auto) [place] % (Auto) Eos % (Auto) Baso % (Auto) Neut # (Auto) Lymph # (Auto) [place] # (Auto) Eos # (Auto) Baso # (Auto) PT INR APTT Sodium 143 Potassium 4.0 Chloride 102 Carbon Dioxide 21 L Anion Gap 24 H BUN 70 H Creatinine 10.6 H* Est GFR ( Amer) 7 Est GFR (Non-Af Amer) 6 POC Glucose (mg/dL) Random Glucose 90 Hemoglobin A1c 5.3 Calcium 8.5 L Total Bilirubin 0.5 AST 15 L D ALT 23 Alkaline Phosphatase 108 Troponin I < 0.0120 Total Protein 7.9 Albumin 4.5 Globulin 3.4 Albumin/Globulin Ratio 1.3 Triglycerides 796 H Cholesterol 236 H LDL Cholesterol Direct 119 HDL Cholesterol 24 L Blood Type O NEGATIVE Antibody Screen Negative 07/29/18 12:10 WBC RBC Hgb Hct MCV MCH MCHC RDW Plt Count MPV Neut % (Auto) Lymph % (Auto) [place] % (Auto) Eos % (Auto) Baso % (Auto) Neut # (Auto) Lymph # (Auto) [place] # (Auto) Eos # (Auto) Baso # (Auto) PT INR APTT Sodium Potassium Chloride Carbon Dioxide Anion Gap BUN Creatinine Est GFR ( Amer) Est GFR (Non-Af Amer) POC Glucose (mg/dL) 111 H Random Glucose Hemoglobin A1c Calcium Total Bilirubin AST ALT Alkaline Phosphatase Troponin I Total Protein Albumin Globulin Albumin/Globulin Ratio Triglycerides Cholesterol LDL Cholesterol Direct HDL Cholesterol Blood Type Antibody Screen Assessment & Plan - Assessment and Plan (Free Text) Assessment: 28 y/o male with PMHx of HTN and ESRD currently receiving hemodialysis. - OR for AVF on left Upper Extremity on Tuesday 07/31 - Left arm precaution - Vein Mapping - Medical Management per Primary - DVT PPx - GI PPx Discussed with Dr. Jessie Rosenberg, PGY-3
[2018-07-29 16:07] LABS: HDL CHOLESTEROL 21 mg/dL (30-70)
[2018-07-29 16:18] LABS: LDL CHOLESTEROL 120 mg/dL (0-129)
--- NOTE | 2018-07-29 17:01 | CP.PCM.CON ---
History of Present Illness - History of Present Illness History of Present Illness: Neurology Consultation Note: Mr. Key is a 28-year-old man with a past medical history of HTN, IVDA, ESRD on hemodialysis (2 weeks ago, but non-compliant), who presented to the ED yesterday with left face and arm numbness that had started 30 minutes prior to arrival. His symptoms improved. He was not a good candidate for IV tPA due to improving symptoms. CT scan of the head did not show any acute findings. CTA of the head/neck was normal. He was started on aspirin. Review of Systems - Constitutional Constitutional: absent: As Per HPI, Anorexia, Chills, Daytime Sleepiness, Excessive Sweating, Fatigue, Fever, Frequent Falls, Headache, Increased Appetite, Lethargy, Malaise, Night Sweats, Snoring, Sleep Apnea, Weight Gain, Weight Loss, Weakness, Other - EENT Eyes: absent: As Per HPI, Blind Spots, Blurred Vision, Change in Vision, Decreased Night Vision, Diplopia, Discharge, Dry Eye, Exophthalmos, Floaters, Irritation, Itchy Eyes, Loss of Peripheral Vision, Pain, Photophobia, Requires Corrective Lenses, Sees Flashes, Spots in Vision, Tunnel Vision, Other Visual Disturbances, Loss of Vision, Other Ears: absent: As Per HPI, Decreased Hearing, Ear Discharge, Ear Pain, Tinnitus, Abnormal Hearing, Disequilibrium, Dizziness, Other Nose/Mouth/Throat: absent: As Per HPI, Epistaxis, Nasal Congestion, Nasal Discharge, Nasal Obstruction, Nasal Trauma, Nose Pain, Post Nasal Drip, Sinus Pain, Sinus Pressure, Bleeding Gums, Change in Voice, Dental Pain, Dry Mouth, Dysphagia, Halitosis, Hoarsness, Lip Swelling, Mouth Lesions, Mouth Pain, Odynophagia, Sore Throat, Throat Swelling, Tongue Swelling, Facial Pain, Neck Pain, Neck Mass, Other - Cardiovascular Cardiovascular: absent: As Per HPI, Acrocyanosis, Chest Pain, Chest Pain at Rest, Chest Pain with Activity, Claudication, Diaphoresis, Dyspnea, Dyspnea on Exertion, Edema, Irregular Heart Rhythm, Pain Radiating to Arm/Neck/Jaw, Leg Edema, Leg Ulcers, Lightheadedness, Orthopnea, Palpitations, Paroxysmal Nocturnal Dyspnea, Pedal Edema, Radiating Pain, Rapid Heart Rate, Slow Heart Rate, Syncope, Other - Respiratory Respiratory: absent: As Per HPI, Cough, Dyspnea, Hemoptysis, Dyspnea on Exertion, Wheezing, Snoring, Stridor, Pain on Inspiration, Chest Congestion, Excessive Mucous Production, Change in Mucous Color, Pain with Coughing, Other - Gastrointestinal Gastrointestinal: absent: As Per HPI, Abdominal Pain, Belching, Bloating, Change in Bowel Habits, Change in Stool Character, Coffee Ground Emesis, Constipation, Cramping, Diarrhea, Dyspepsia, Dysphagia, Early Satiety, Excessive Flatus, Fecal Incontinence, Heartburn, Hematemesis, Hematochezia, Loose Stools, Melena, Nausea, Odynophagia, Temesmus, Vomiting, Other - Genitourinary Genitourinary: absent: As Per HPI, Change in Urinary Stream, Difficulty Urinating, Dysuria, Flank Pain, Hematuria, Pyuria, Nocturia, Urinary Incontinence, Urinary Frequency, Urinary Hesitance, Urinary Urgency, Voiding Freq/Small Amts, Freq UTI, Hx Renal/Bladder Calculi, Hx /Renal Surgery, Bladder Distension, Other - Musculoskeletal Musculoskeletal: absent: As Per HPI, Abnormal Gait, Arthralgias, Atrophy, Back Pain, Deformity, Joint Swelling, Limited Range of Motion, Loss of Height, Muscle Cramps, Muscle Weakness, Myalgias, Neck Pain, Numbness, Radiating Pain into Rivera b, Stiffness, Tingling, Other - Integumentary Integumentary: absent: As Per HPI, Acne, Alopecia, Bleeding Lesions, Change in Hair, Change in Nails, Change in Pigmentation, Changing Lesions, Dry Skin, Erythema, Furuncle, Hirsutism, Lesions, New Lesions, Non-Healing Lesions, Photosensitivity, Pruritus, Rash, Skin Pain, Skin Ulcer, Sores, Striae, Swelling, Unusual Bruising, Wounds, Jaundice, Other - Neurological Neurological: As Per HPI - Psychiatric Psychiatric: absent: As Per HPI, Abnormal Sleep Pattern, Anhedonia, Anxiety, Auditory Hallucinations, Behavioral Changes, Change in Appetite, Change in Libido, Confusion, Depression, Difficulty Concentrating, Hallucinations, Homici aaron Ideation, Hopelessness, Irritability, Memory Loss, Mood Swings, Panic Attacks, Paranoia, Suicidal Ideation, Visual Hallucinations, Tactile Hallucinations, Other - Endocrine Endocrine: absent: As Per HPI, Change in Body Appearance, Change in Libido, Cold Intolorance, Deepening of Voice, Excessive Sweating, Fatigue, Flushing, Heat Intolorance, Increase in Ring/Shoe/Hat Size, Palpitations, Polydipsia, Polyphagia, Polyuria, Other - Hematologic/Lymphatic Hematologic: absent: As Per HPI, Easy Bleeding, Easy Bruising, Lymphadenopathy, Other Past Patient History - Infectious Disease Hx of Infectious Diseases: None - Tetanus Immunizations Tetanus Immunization: Unknown - Past Medical History & Family History Past Medical History?: Yes Past Family History: Reviewed and not pertinent - Past Social History Smoking Status: Heavy Smoker > 10 Cigarettes Daily Chewing Tobacco Use: No Cigar Use: No Alcohol: > 2 Drinks/Day Drugs: Opiates Home Situation {Lives}: Alone - CARDIAC Hx Hypertension: Yes - PULMONARY Hx Respiratory Disorders: No - NEUROLOGICAL Hx Neurological Disorder: No - HEENT Hx HEENT Problems: No - RENAL Hx Chronic Kidney Disease: Yes Hx Dialysis: Yes (pt is new dialysis) Type of Dialysis Access: R chest permacath Date of Last Dialysis Treatment: 07/26/18 - ENDOCRINE/METABOLIC Hx Endocrine Disorders: No - HEMATOLOGICAL/ONCOLOGICAL Hx Blood Disorders: No - INTEGUMENTARY Hx Dermatological Problems: Yes Other/Comment: 07-23-18 MULTIPLE TATTOOS ALL OVER BODY - MUSCULOSKELETAL/RHEUMATOLOGICAL Hx Musculoskeletal Disorders: No Hx Falls: No - GASTROINTESTINAL Hx Gastrointestinal Disorders: No - GENITOURINARY/GYNECOLOGICAL Hx Genitourinary Disorders: No - PSYCHIATRIC Hx Substance Use: No - SURGICAL HISTORY Hx Surgeries: Yes Other/Comment: dialysis port insertion - ANESTHESIA Hx Anesthesia: Yes Hx Anesthesia Reactions: No Hx Malignant Hyperthermia: No Meds Allergies/Adverse Reactions: Allergies Allergy/AdvReac Type Severity Reaction Status Date / Time FISH Allergy ANAPHYLAXIS Verified 07/28/18 15:59 - Medications Medications: Current Medications Aspirin (Aspirin) 325 mg PO DAILY [facility] Last Admin: 07/29/18 10:00 Dose: Not Given Epoetin Ovi (Procrit) 4,000 unit IV MWF [facility] Last Admin: 07/29/18 16:22 Dose: 4,000 unit Pneumococcal Polyvalent Vaccine (Pneumovax 23 Vaccine) 0.5 ml IM .ONCE ONE Stop: 07/31/18 12:01 Vitamin B Complex/Vit C/Folic Acid (Nephro-Edi) 1 tab PO 0800 [facility] Physical Exam - Constitutional Appears: Well - Head Exam Head Exam: ATRAUMATIC, NORMAL INSPECTION, NORMOCEPHALIC - Eye Exam Eye Exam: EOMI, Normal appearance, PERRL - ENT Exam ENT Exam: Mucous Membranes Moist, Normal Exam - Neck Exam Neck exam: Positive for: Normal Inspection - Respiratory Exam Respiratory Exam: Clear to Auscultation Bilateral, NORMAL BREATHING PATTERN - Cardiovascular Exam Cardiovascular Exam: REGULAR RHYTHM, +S1, +S2 - GI/Abdominal Exam GI & Abdominal Exam: Normal Bowel Sounds, Soft. absent: Tenderness - Extremities Exam Extremities exam: Positive for: normal inspection - Back Exam Back exam: NORMAL INSPECTION - Neurological Exam Neurological exam: Abnormal Gait, Alert, CN II-XII Intact, Oriented x3, Reflexes Normal Additional comments: Awake, alert, oriented to person, place and time. Speech is fluent, no dysarthria. Strength is symmetrical, but lower extremities are slightly weaker than upper. Decreased sensation over left arm as compared with right. NIHSS =1 Results - Vital Signs Recent Vital Signs: Last Vital Signs Temp 97.8 F 07/29/18 15:10 Pulse 86 07/29/18 16:14 Resp 18 07/29/18 16:14 BP 157/107 H 07/29/18 16:40 Pulse Ox 96 07/29/18 15:10 - Labs Result Diagrams: 07/28/18 16:41 07/28/18 16:41 Labs: Laboratory Results - last 24 hr 07/28/18 07/28/18 07/28/18 15:53 16:41 16:41 WBC 7.7 RBC 2.96 L Hgb 9.4 L Hct 26.7 L MCV 90.1 MCH 31.9 H MCHC 35.4 RDW 13.3 Plt Count 271 MPV 9.8 Neut % (Auto) 60.6 Lymph % (Auto) 24.9 [place] % (Auto) 9.3 Eos % (Auto) 4.3 H Baso % (Auto) 0.9 Neut # (Auto) 4.7 Lymph # (Auto) 1.9 [place] # (Auto) 0.7 Eos # (Auto) 0.3 Baso # (Auto) 0.1 PT 12.1 INR 1.1 APTT 35 H Sodium Potassium Chloride Carbon Dioxide Anion Gap BUN Creatinine Est GFR ( Amer) Est GFR (Non-Af Amer) POC Glucose (mg/dL) 114 H Random Glucose Hemoglobin A1c Calcium Total Bilirubin AST ALT Alkaline Phosphatase Troponin I Total Protein Albumin Globulin Albumin/Globulin Ratio Triglycerides Cholesterol LDL Cholesterol Direct HDL Cholesterol Blood Type Antibody Screen 07/28/18 07/28/18 07/28/18 16:41 16:41 16:41 WBC RBC Hgb Hct MCV MCH MCHC RDW Plt Count MPV Neut % (Auto) Lymph % (Auto) [place] % (Auto) Eos % (Auto) Baso % (Auto) Neut # (Auto) Lymph # (Auto) [place] # (Auto) Eos # (Auto) Baso # (Auto) PT INR APTT Sodium 143 Potassium 4.0 Chloride 102 Carbon Dioxide 21 L Anion Gap 24 H BUN 70 H Creatinine 10.6 H* Est GFR ( Amer) 7 Est GFR (Non-Af Amer) 6 POC Glucose (mg/dL) Random Glucose 90 Hemoglobin A1c 5.3 Calcium 8.5 L Total Bilirubin 0.5 AST 15 L D ALT 23 Alkaline Phosphatase 108 Troponin I < 0.0120 Total Protein 7.9 Albumin 4.5 Globulin 3.4 Albumin/Globulin Ratio 1.3 Triglycerides 796 H Cholesterol 236 H LDL Cholesterol Direct 119 HDL Cholesterol 24 L Blood Type O NEGATIVE Antibody Screen Negative 07/29/18 07/29/18 07/29/18 12:10 15:36 16:27 WBC RBC Hgb Hct MCV MCH MCHC RDW Plt Count MPV Neut % (Auto) Lymph % (Auto) [place] % (Auto) Eos % (Auto) Baso % (Auto) Neut # (Auto) Lymph # (Auto) [place] # (Auto) Eos # (Auto) Baso # (Auto) PT INR APTT Sodium Potassium Chloride Carbon Dioxide Anion Gap BUN Creatinine Est GFR ( Amer) Est GFR (Non-Af Amer) POC Glucose (mg/dL) 111 H 123 H Random Glucose Hemoglobin A1c Calcium Total Bilirubin AST ALT Alkaline Phosphatase Troponin I Total Protein Albumin Globulin Albumin/Globulin Ratio Triglycerides 514 H D Cholesterol 224 H LDL Cholesterol Direct 120 HDL Cholesterol 21 L Blood Type Antibody Screen Assessment & Plan (1) Paresthesias in left hand Assessment and Plan: This could be due to neuropathy, or may be a small subcortical stroke. I recommend the followin. Telemetry 2. MRI brain without contrast 3. Echocardiogram 4. Aspirin 81 mg daily 5. Check lipid panel, and give statin to maintain LDL below 70 6. Check HbA1c, B12, folate, homocysteine levels. 7. PT/OT eval and treatment 8. Case management consult Thank you for this consultation. Status: Acute
[2018-07-30] MEDS: Multivitamin Vitamin B Complex (Nephro-Vite) Tab PO SCH (09:43)
--- NOTE | 2018-07-30 10:29 | CP.PCM.PN ---
Subjective - Date & Time of Evaluation Date of Evaluation: 07/30/18 Time of Evaluation: 07:00 - Subjective Subjective: Patient examined at bedside. No acute events overnight. Per nursing, patient has been refusing telemetry, patient left MRI early yesterday before completion of imaging. On examination, patient sleeping. Objective - Vital Signs/Intake and Output Vital Signs (last 24 hours): Temp Pulse Resp BP Pulse Ox 98 F 87 20 137/86 97 07/30/18 04:00 07/30/18 04:00 07/30/18 04:00 07/30/18 04:00 07/30/18 04:00 - Medications Medications: Current Medications Amlodipine Besylate (Norvasc) 10 mg PO DAILY [facility] Last Admin: 07/30/18 09:38 Dose: 10 mg Aspirin (Aspirin) 325 mg PO DAILY [facility] Last Admin: 07/30/18 09:38 Dose: 325 mg Epoetin Ovi (Procrit) 4,000 unit IV MWF [facility] Last Admin: 07/29/18 16:22 Dose: 4,000 unit Pneumococcal Polyvalent Vaccine (Pneumovax 23 Vaccine) 0.5 ml IM .ONCE ONE Stop: 07/31/18 12:01 Rosuvastatin Calcium (Crestor) 10 mg PO HS [facility] Last Admin: 07/29/18 21:42 Dose: 10 mg Vitamin B Complex/Vit C/Folic Acid (Nephro-Edi) 1 tab PO 0800 [facility] Last Admin: 07/30/18 09:43 Dose: 1 tab - Labs Labs: 07/28/18 16:41 07/28/18 16:41 PT 12.1 SECONDS (9.7-12.2) 07/28/18 16:41 INR 1.1 07/28/18 16:41 APTT 35 SECONDS (21-34) H 07/28/18 16:41 - Constitutional Appears: Non-toxic, No Acute Distress - Head Exam Head Exam: ATRAUMATIC, NORMAL INSPECTION, NORMOCEPHALIC
--- NOTE | 2018-07-30 10:53 | CP.PCM.PN ---
Subjective - Date & Time of Evaluation Date of Evaluation: 07/30/18 Time of Evaluation: 10:52 - Subjective Subjective: seen and examined chart reviewed doesnt want to answer questions Objective - Vital Signs/Intake and Output Vital Signs (last 24 hours): Temp Pulse Resp BP Pulse Ox 98 F 87 20 137/86 97 07/30/18 04:00 07/30/18 04:00 07/30/18 04:00 07/30/18 04:00 07/30/18 04:00 - Medications Medications: Current Medications Amlodipine Besylate (Norvasc) 10 mg PO DAILY [facility] Last Admin: 07/30/18 09:38 Dose: 10 mg Aspirin (Aspirin) 325 mg PO DAILY [facility] Last Admin: 07/30/18 09:38 Dose: 325 mg Epoetin Ovi (Procrit) 4,000 unit IV MWF [facility] Last Admin: 07/29/18 16:22 Dose: 4,000 unit Pneumococcal Polyvalent Vaccine (Pneumovax 23 Vaccine) 0.5 ml IM .ONCE ONE Stop: 07/31/18 12:01 Rosuvastatin Calcium (Crestor) 10 mg PO HS [facility] Last Admin: 07/29/18 21:42 Dose: 10 mg Vitamin B Complex/Vit C/Folic Acid (Nephro-Edi) 1 tab PO 0800 [facility] Last Admin: 07/30/18 09:43 Dose: 1 tab - Labs Labs: 07/28/18 16:41 07/28/18 16:41 PT 12.1 SECONDS (9.7-12.2) 07/28/18 16:41 INR 1.1 07/28/18 16:41 APTT 35 SECONDS (21-34) H 07/28/18 16:41 - Constitutional Appears: No Acute Distress, Chronically Ill - Head Exam Head Exam: NORMAL INSPECTION, NORMOCEPHALIC - Eye Exam Eye Exam: Normal appearance, PERRL - ENT Exam ENT Exam: Mucous Membranes Moist, Normal Exam - Neck Exam Neck Exam: Full ROM, Normal Inspection - Respiratory Exam Respiratory Exam: Clear to Ausculation Bilateral, NORMAL BREATHING PATTERN - Cardiovascular Exam Cardiovascular Exam: REGULAR RHYTHM, RRR - GI/Abdominal Exam GI & Abdominal Exam: Distended, Soft - Extremities Exam Extremities Exam: Full ROM, Normal Inspection - Neurological Exam Neurological Exam: Alert, Awake, Oriented x3 - Skin Skin Exam: Dry, Normal Color, Warm Assessment and Plan (1) ESRD (end stage renal disease) Status: Acute (2) Hypertensive chronic kidney disease with stage 5 chronic kidney disease or end stage renal disease Status: Acute (3) Intravenous drug abuse Status: Acute - Assessment and Plan (Free Text) Assessment: maintain hd mwf ongoing neuro work up urine drug screen ordered
--- NOTE | 2018-07-30 14:30 | CP.PCM.PN ---
Subjective - Date & Time of Evaluation Date of Evaluation: 07/30/18 Time of Evaluation: 14:28 - Subjective Subjective: PT REFUSING TELEMETRY AND MRI CAN BE DISCHARGED MRIi OF BRAIN IS NOT GOING TO RADICALLY CHANGE TREATMENT Objective - Vital Signs/Intake and Output Vital Signs (last 24 hours): Temp Pulse Resp BP Pulse Ox 98 F 87 20 137/86 97 07/30/18 04:00 07/30/18 04:00 07/30/18 04:00 07/30/18 04:00 07/30/18 04:00 - Medications Medications: Current Medications Amlodipine Besylate (Norvasc) 10 mg PO DAILY [facility] Last Admin: 07/30/18 09:38 Dose: 10 mg Aspirin (Aspirin) 325 mg PO DAILY [facility] Last Admin: 07/30/18 09:38 Dose: 325 mg Epoetin Ovi (Procrit) 4,000 unit IV MWF [facility] Last Admin: 07/29/18 16:22 Dose: 4,000 unit Pneumococcal Polyvalent Vaccine (Pneumovax 23 Vaccine) 0.5 ml IM .ONCE ONE Stop: 07/31/18 12:01 Rosuvastatin Calcium (Crestor) 10 mg PO HS [facility] Last Admin: 07/29/18 21:42 Dose: 10 mg Vitamin B Complex/Vit C/Folic Acid (Nephro-Edi) 1 tab PO 0800 [facility] Last Admin: 07/30/18 09:43 Dose: 1 tab - Labs Labs: 07/28/18 16:41 07/28/18 16:41 PT 12.1 SECONDS (9.7-12.2) 07/28/18 16:41 INR 1.1 07/28/18 16:41 APTT 35 SECONDS (21-34) H 07/28/18 16:41
--- NOTE | 2018-07-30 15:44 | CP.PCM.PN ---
Subjective - Date & Time of Evaluation Date of Evaluation: 07/30/18 Time of Evaluation: 15:42 - Subjective Subjective: Mr. Key was seen and examined today at bedside. He said his numbness was improved today. He was not able to complete the MRI due to claustrophobia and refused. He appears to be somnolent and refusing most therapies. Objective - Vital Signs/Intake and Output Vital Signs (last 24 hours): Temp Pulse Resp BP Pulse Ox 98 F 87 20 137/86 97 07/30/18 04:00 07/30/18 04:00 07/30/18 04:00 07/30/18 04:00 07/30/18 04:00 - Medications Medications: Current Medications Amlodipine Besylate (Norvasc) 10 mg PO DAILY [facility] Last Admin: 07/30/18 09:38 Dose: 10 mg Aspirin (Aspirin) 325 mg PO DAILY [facility] Last Admin: 07/30/18 09:38 Dose: 325 mg Epoetin Ovi (Procrit) 4,000 unit IV MWF [facility] Last Admin: 07/29/18 16:22 Dose: 4,000 unit Pneumococcal Polyvalent Vaccine (Pneumovax 23 Vaccine) 0.5 ml IM .ONCE ONE Stop: 07/31/18 12:01 Rosuvastatin Calcium (Crestor) 10 mg PO HS [facility] Last Admin: 07/29/18 21:42 Dose: 10 mg Vitamin B Complex/Vit C/Folic Acid (Nephro-Edi) 1 tab PO 0800 [facility] Last Admin: 07/30/18 09:43 Dose: 1 tab - Labs Labs: 07/28/18 16:41 07/28/18 16:41 PT 12.1 SECONDS (9.7-12.2) 07/28/18 16:41 INR 1.1 07/28/18 16:41 APTT 35 SECONDS (21-34) H 07/28/18 16:41 - Neurological Exam Neurological Exam: Awake, CN II-XII Intact, Oriented x3 Neuro motor strength exam: Left Upper Extremity: 4, Right Upper Extremity: 4, Left Lower Extremity: 4, Right Lower Extremity: 4 Additional comments: Refused to ambulate Assessment and Plan (1) Paresthesias in left hand Assessment & Plan: Improved. MRI of the brain is pending for stroke work-up. May be peripheral neuropathy considering his history, but the sudden onset is concerning. Continue current management. Open MRI is a consideration as an outpatient as well. PT/OT should continue. Status: Acute
--- NOTE | 2018-07-30 15:59 | CP.PCM.PCO ---
Physician Communication Note - Physician Communication Note Physician Communication Note: pt in agreement for acute rehab; referred by [facility]
[2018-07-30 17:18] LABS: BARBITURATES, UR NEGATIVE (NEGATIVE); BENZODIAZEPINES, UR NEGATIVE (NEGATIVE); OPIATES, UR NEGATIVE (NEGATIVE)
[2018-07-30 17:23] LABS: PHENCYCLIDINE, UR POSITIVE (NEGATIVE)
--- NOTE | 2018-07-30 19:08 | CP.PCM.PN ---
Subjective - Date & Time of Evaluation Date of Evaluation: 07/30/18 Time of Evaluation: 07:55 - Subjective Subjective: surgery progress note for Dr. Roman Patient examined at bedside. No acute events overnight. Per nursing, patient is refusing telemetry and refused to complete the entire MRI, leaving early. Pt understands he is going to the OR tomorrow for an AVF. Patient denies chest pain, SOB, nausea, abdominal pain. Objective - Vital Signs/Intake and Output Vital Signs (last 24 hours): Temp Pulse Resp BP Pulse Ox 98.4 F 87 20 162/103 H 95 07/30/18 17:00 07/30/18 17:00 07/30/18 17:00 07/30/18 17:00 07/30/18 17:00 - Medications Medications: Current Medications Amlodipine Besylate (Norvasc) 10 mg PO DAILY [facility] Last Admin: 07/30/18 09:38 Dose: 10 mg Aspirin (Aspirin) 325 mg PO DAILY [facility] Last Admin: 07/30/18 09:38 Dose: 325 mg Epoetin Ovi (Procrit) 4,000 unit IV MWF [facility] Last Admin: 07/29/18 16:22 Dose: 4,000 unit Pneumococcal Polyvalent Vaccine (Pneumovax 23 Vaccine) 0.5 ml IM .ONCE ONE Stop: 07/31/18 12:01 Rosuvastatin Calcium (Crestor) 10 mg PO HS [facility] Last Admin: 07/29/18 21:42 Dose: 10 mg Vitamin B Complex/Vit C/Folic Acid (Nephro-Edi) 1 tab PO 0800 [facility] Last Admin: 07/30/18 09:43 Dose: 1 tab - Labs Labs: 07/28/18 16:41 07/28/18 16:41 PT 12.1 SECONDS (9.7-12.2) 07/28/18 16:41 INR 1.1 07/28/18 16:41 APTT 35 SECONDS (21-34) H 07/28/18 16:41 - Constitutional Appears: Non-toxic, No Acute Distress - Head Exam Head Exam: ATRAUMATIC, NORMAL INSPECTION, NORMOCEPHALIC - Eye Exam Eye Exam: EOMI, Normal appearance - ENT Exam ENT Exam: Mucous Membranes Moist, Normal Exam - Neck Exam Neck Exam: Normal Inspection - Respiratory Exam Respiratory Exam: Clear to Ausculation Bilateral, NORMAL BREATHING PATTERN - Cardiovascular Exam Cardiovascular Exam: REGULAR RHYTHM. absent: Tachycardia - GI/Abdominal Exam GI & Abdominal Exam: Soft, Normal Bowel Sounds - Extremities Exam Extremities Exam: Normal Capillary Refill, Normal Inspection. absent: Calf Tenderness, Pedal Edema - Neurological Exam Neurological Exam: Alert, Awake, Oriented x3 - Psychiatric Exam Psychiatric exam: Normal Affect, Normal Mood - Skin Skin Exam: Dry, Intact, Normal Color, Warm Assessment and Plan - Assessment and Plan (Free Text) Assessment: 28 year old male to OR tomorrow for AVF creation for HD 2/2 MK Plan: -NPO @[place] -to OR tmrw for AVF, vein mapping performed 07/18/18 -medical management per primary Discussed with Dr. Jessie Wyatt, PGY-1
[2018-07-31] MEDS ORDERED: ceFAZolin 1 gm in NS 2 GM/200 ML BAG IVPB ONE (06:55)
[2018-07-31] MEDS ORDERED: HEPARIN-NS 5,000 UNITS/500 ML 5,000 UNIT/500 ML BAG IV ONE (06:55)
[2018-07-31 08:26] LABS: BASO # 0.1 K/uL (0.0-0.2); BASO % 1.2 % (0.0-2.0); EOS # 0.3 K/uL (0.0-0.7); EOS % 4.3 % (0.0-4.0); HEMOGLOBIN 9.1 g/dL (12.0-18.0); LYMPH % 27.1 % (20.0-40.0); MEAN CELL VOLUME 90.9 fL (80.0-94.0); MEAN CORPUSCULAR HEMOGLOBIN 31.6 pg (27.0-31.0); MEAN CORPUSCULAR HGB CONC 34.8 g/dL (33.0-37.0); MONO # 0.8 K/uL (0.0-0.8); MONO % 10.4 % (0.0-10.0); NEUT # 4.3 K/uL (1.8-7.0); RBC 2.87 Mil/uL (4.40-5.90); RED CELL DISTRIBUTION WIDTH 13.7 % (11.5-14.5); WHITE BLOOD COUNT 7.5 K/uL (4.8-10.8)
[2018-07-31 08:59] LABS: ALB/GLOB RATIO 1.2 (1.0-2.1); ALBUMIN 4.1 g/dL (3.5-5.0); CALCIUM 8.9 mg/dl (8.6-10.4)
[2018-07-31] MEDS ORDERED: Propofol 10 mg/ml Inj (20 ML) ONE (09:36)
[2018-07-31] MEDS ORDERED: Midazolam 2 MG/2 ML VIAL ONE (09:36)
[2018-07-31] MEDS: Multivitamin Vitamin B Complex (Nephro-Vite) Tab PO SCH (09:48)
[2018-07-31] MEDS ORDERED: Nitroglycerin 50mg in D5W 0 MG/0 ML BOTTLE IV ONE (11:10)
[2018-07-31] MEDS ORDERED: Papaverine Hydrochloride 30 mg/ml (2ml) ONE (11:10)
[2018-07-31] MEDS ORDERED: Pneumococcal 23-Valent Vaccine IM ONE (12:00)
[2018-07-31] MEDS ORDERED: Succinylcholine Chloride 20 mg/ml Syr (5 ml) IV ONE (12:24)
[2018-07-31] MEDS ORDERED: Neostigmine Methylsulfate 3mg/3ml Syringe IV ONE (12:25)
--- NOTE | 2018-07-31 12:39 | PCM.SURG1 ---
Surgeon's Initial Post Op Note - Surgeon's Notes Surgeon: Dr. Roman Head Stock Transfer Clerk: Dr. Pepito Rosenberg PGY-3, Loraine Pittman MS4 Type of Anesthesia: General Endo Anesthesia Administered By: Radha Pre-Operative Diagnosis: Renal Failure Operative Findings: See Operative Report Post-Operative Diagnosis: Renal Failure Operation Performed: Creation of Left distal wrist/snuffbox Radio-cephalic AV Fistula Specimen/Specimens Removed: n/a Estimated Blood Loss: EBL {In ML}: 20 Blood Products Given: N/A Drains Used: No Drains Post-Op Condition: Good Date of Surgery/Procedure: 07/31/18 Time of Surgery/Procedure: 10:30
[2018-07-31] MEDS: HYDROmorphone 0.5 mg/0.5 ml ISec IVP PRN ×2 (12:50→13:00)
--- NOTE | 2018-07-31 14:05 | CP.PCM.PN ---
Subjective - Date & Time of Evaluation Date of Evaluation: 07/31/18 Time of Evaluation: 14:04 - Subjective Subjective: patient had an AV shunt placed this morning in the left arm Patient currently has no medical issues. Patient will be going home in a.m. as patient was refused for rehab Objective - Vital Signs/Intake and Output Vital Signs (last 24 hours): Temp Pulse Resp BP Pulse Ox 97 F L 66 12 151/88 H 100 07/31/18 12:35 07/31/18 13:15 07/31/18 13:15 07/31/18 13:15 07/31/18 13:15 Intake and Output: 07/31/18 07/31/18 11:59 23:59 Intake Total 250 0 Balance 250 0 - Medications Medications: Current Medications Amlodipine Besylate (Norvasc) 10 mg PO DAILY [facility] Last Admin: 07/31/18 09:48 Dose: 10 mg Aspirin (Aspirin) 325 mg PO DAILY [facility] Last Admin: 07/31/18 09:48 Dose: 325 mg Clonidine HCl (Catapres) 0.2 mg PO DAILY [facility] Last Admin: 07/31/18 09:48 Dose: 0.2 mg Docusate Sodium (Colace) 100 mg PO DAILY [facility] Epoetin Ovi (Procrit) 4,000 unit IV MWF [facility] Last Admin: 07/29/18 16:22 Dose: 4,000 unit Hydromorphone HCl (Dilaudid) 0.5 mg IVP Q5M PRN PRN Reason: Pain, moderate (4-7) Stop: 07/31/18 14:39 Last Admin: 07/31/18 12:50 Dose: 0.5 mg Lactulose (Enulose) 20 gm PO [facility] Last Admin: 07/30/18 21:18 Dose: 20 gm Ondansetron HCl (Zofran Inj) 4 mg IVP ONCE PRN PRN Reason: Nausea/Vomiting Stop: 07/31/18 14:39 Oxycodone/Acetaminophen (Percocet 5/325 Mg Tab) 2 tab PO Q4H PRN PRN Reason: Pain, moderate (4-7) Stop: 08/03/18 12:41 Rosuvastatin Calcium (Crestor) 10 mg PO [facility] Last Admin: 07/30/18 21:17 Dose: 10 mg Vitamin B Complex/Vit C/Folic Acid (Nephro-Edi) 1 tab PO 0800 [facility] Last Admin: 07/31/18 09:48 Dose: 1 tab - Labs Labs: 07/31/18 08:11 07/31/18 08:11 PT 12.1 SECONDS (9.7-12.2) 07/28/18 16:41 INR 1.1 07/28/18 16:41 APTT 35 SECONDS (21-34) H 07/28/18 16:41
[2018-07-31] MEDS: Oxycodone/Acetaminophen 5/325 mg Tab PO PRN ×3 (14:19→23:19)
[2018-07-31] MEDS ORDERED: EPOETIN ALFA 4,000 UNIT/ML ML Dialysis IV SCH (14:36)
--- NOTE | 2018-07-31 14:40 | CP.PCM.PN ---
Subjective - Date & Time of Evaluation Date of Evaluation: 07/31/18 Time of Evaluation: 14:38 - Subjective Subjective: s/p AV F placement left wrist Hg low- check iron stores, increase BRETT dose For dialysis soon Objective - Vital Signs/Intake and Output Vital Signs (last 24 hours): Temp Pulse Resp BP Pulse Ox 97 F L 66 12 151/88 H 100 07/31/18 12:35 07/31/18 13:15 07/31/18 13:15 07/31/18 13:15 07/31/18 13:15 Intake and Output: 07/31/18 07/31/18 06:59 18:59 Intake Total 250 Balance 250 - Medications Medications: Current Medications Amlodipine Besylate (Norvasc) 10 mg PO DAILY [facility] Last Admin: 07/31/18 09:48 Dose: 10 mg Aspirin (Aspirin) 325 mg PO DAILY [facility] Last Admin: 07/31/18 09:48 Dose: 325 mg Calcium Acetate (Phoslo) 667 mg PO TID [facility] Clonidine HCl (Catapres) 0.2 mg PO DAILY [facility] Last Admin: 07/31/18 09:48 Dose: 0.2 mg Docusate Sodium (Colace) 100 mg PO DAILY [facility] Epoetin Ovi (Procrit) 10,000 unit IV MWF [facility] Epoetin Ovi (Procrit) 10,000 unit IV MWF [facility] Hydromorphone HCl (Dilaudid) 0.5 mg IVP Q5M PRN PRN Reason: Pain, moderate (4-7) Stop: 07/31/18 14:39 Last Admin: 07/31/18 12:50 Dose: 0.5 mg Lactulose (Enulose) 20 gm PO HS [facility] Last Admin: 07/30/18 21:18 Dose: 20 gm Ondansetron HCl (Zofran Inj) 4 mg IVP ONCE PRN PRN Reason: Nausea/Vomiting Stop: 07/31/18 14:39 Oxycodone/Acetaminophen (Percocet 5/325 Mg Tab) 2 tab PO Q4H PRN PRN Reason: Pain, moderate (4-7) Stop: 08/03/18 12:41 Last Admin: 07/31/18 14:19 Dose: 2 tab Rosuvastatin Calcium (Crestor) 10 mg PO [facility] Last Admin: 10/30/18 21:17 Dose: 10 mg Vitamin B Complex/Vit C/Folic Acid (Nephro-Edi) 1 tab PO 0800 [facility] Last Admin: 07/31/18 09:48 Dose: 1 tab - Labs Labs: 07/31/18 08:11 07/31/18 08:11 PT 12.1 SECONDS (9.7-12.2) 07/28/18 16:41 INR 1.1 07/28/18 16:41 APTT 35 SECONDS (21-34) H 07/28/18 16:41 - Constitutional Appears: No Acute Distress, Chronically Ill - Head Exam Head Exam: ATRAUMATIC, NORMAL INSPECTION - Eye Exam Eye Exam: EOMI, Normal appearance - Neck Exam Neck Exam: Normal Inspection. absent: Tenderness - Respiratory Exam Respiratory Exam: Clear to Ausculation Bilateral, NORMAL BREATHING PATTERN - Cardiovascular Exam Cardiovascular Exam: REGULAR RHYTHM, +S1 - GI/Abdominal Exam GI & Abdominal Exam: Soft. absent: Tenderness - Extremities Exam Extremities Exam: Normal Inspection. absent: Tenderness - Neurological Exam Neurological Exam: Awake, CN II-XII Intact - Skin Skin Exam: Dry, Warm Assessment and Plan (1) ESRD (end stage renal disease) Status: Acute (2) Hypertensive chronic kidney disease with stage 5 chronic kidney disease or e nd stage renal disease Status: Acute (3) Intravenous drug abuse Status: Acute - Assessment and Plan (Free Text) Plan: Dialysis MWF Increase BRETT dose, check iron store Start ca acetate
[2018-07-31] MEDS ORDERED: Epoetin Alfa 10,000 unit/ml Dialysis IV SCH (14:45)
[2018-07-31 16:56] LABS: IRON 43 ug/dL (49-181)
[2018-07-31 17:09] LABS: % IRON SATURATION 15 (20-55); TOTAL IRON BINDING CAPACITY 285 ug/dL (250-450)
[2018-07-31 19:41] VITALS: RESP 20
--- NOTE | 2018-07-31 22:47 | OP ---
PROCEDURE DATE: 07/31/2018 PREOPERATIVE DIAGNOSIS: Renal failure. POSTOPERATIVE DIAGNOSIS: Renal failure. PROCEDURE CARRIED OUT: Snuffbox fistula, left wrist. SURGEON: Evan Roman Jr., MD SUPERVISOR HAND WORKERS: . ANESTHESIOLOGIST: Radha Garcia CRNA INDICATIONS FOR PROCEDURE: The patient is a young man with renal insufficiency, peritoneal dialysis catheter who refused access procedures. OPERATIVE FINDINGS: Although his arms are quite chubby, he had a very good cephalic vein all the way from the wrist to the axilla. Because of this, we started at the wrist using a snuffbox fistula. This was carried out using loop magnification and heparin anticoagulation in an end-to-side fashion. At the end of the procedure, there was excellent flow to the fistula. We then closed the wounds with 5-0 nylon sutures on the skin. Blood loss for the procedure was less than 20 mL. OPERATION CARRIED OUT: Snuffbox fistula, left wrist. Evan Roman Jr., MD
[2018-08-01] MEDS: Oxycodone/Acetaminophen 5/325 mg Tab PO PRN ×3 (03:16→11:30)
[2018-08-01 07:49] LABS: BASO # 0.1 K/uL (0.0-0.2); BASO % 0.9 % (0.0-2.0); EOS # 0.2 K/uL (0.0-0.7); EOS % 2.4 % (0.0-4.0); HEMOGLOBIN 9.1 g/dL (12.0-18.0); LYMPH # 1.6 K/uL (1.0-4.3); LYMPH % 16.6 % (20.0-40.0); MEAN CELL VOLUME 91.4 fL (80.0-94.0); MEAN CORPUSCULAR HEMOGLOBIN 31.3 pg (27.0-31.0); MEAN CORPUSCULAR HGB CONC 34.3 g/dL (33.0-37.0); MEAN PLATELET VOLUME 9.5 fL (7.2-11.7); MONO % 10.4 % (0.0-10.0); NEUT # 6.8 K/uL (1.8-7.0); NEUT % 69.7 % (50.0-75.0); RBC 2.91 Mil/uL (4.40-5.90); RED CELL DISTRIBUTION WIDTH 13.4 % (11.5-14.5); WHITE BLOOD COUNT 9.8 K/uL (4.8-10.8)
[2018-08-01] MEDS: Multivitamin Vitamin B Complex (Nephro-Vite) Tab PO SCH (08:28)
[2018-08-01 08:36] VITALS: BP 157/86; TEMP 98.4
[2018-08-01 08:43] VITALS: PULSE 80
[2018-08-01 09:16] LABS: ALB/GLOB RATIO 1.3 (1.0-2.1); ALBUMIN 4.4 g/dL (3.5-5.0); CALCIUM 8.4 mg/dl (8.6-10.4)
--- NOTE | 2018-08-01 10:15 | CP.PCM.PN ---
Subjective - Date & Time of Evaluation Date of Evaluation: 08/01/18 Time of Evaluation: 10:13 - Subjective Subjective: s/p AV fistula placement- has bruit s/p dialysis 07/31 TSAT=15% Feels better Objective - Vital Signs/Intake and Output Vital Signs (last 24 hours): Temp Pulse Resp BP Pulse Ox 98.4 F 80 20 157/86 H 93 L 08/01/18 07:50 08/01/18 08:10 08/01/18 07:50 08/01/18 07:50 08/01/18 07:50 - Medications Medications: Current Medications Amlodipine Besylate (Norvasc) 10 mg PO DAILY [facility] Last Admin: 07/31/18 09:48 Dose: 10 mg Aspirin (Aspirin) 325 mg PO DAILY [facility] Last Admin: 07/31/18 09:48 Dose: 325 mg Calcium Acetate (Phoslo) 667 mg PO TIDCC [facility] Last Admin: 08/01/18 08:28 Dose: 667 mg Clonidine HCl (Catapres) 0.2 mg PO DAILY [facility] Last Admin: 07/31/18 09:48 Dose: 0.2 mg Docusate Sodium (Colace) 100 mg PO DAILY [facility] Epoetin Ovi (Procrit) 10,000 unit IV MWF [facility] Last Admin: 07/31/18 18:36 Dose: 10,000 unit Lactulose (Enulose) 20 gm PO HS [facility] Last Admin: 07/31/18 23:18 Dose: 20 gm Oxycodone/Acetaminophen (Percocet 5/325 Mg Tab) 2 tab PO Q4H PRN PRN Reason: Pain, moderate (4-7) Stop: 08/03/18 12:41 Last Admin: 08/01/18 07:10 Dose: 2 tab Rosuvastatin Calcium (Crestor) 10 mg PO HS [facility] Last Admin: 07/31/18 23:18 Dose: 10 mg Vitamin B Complex/Vit C/Folic Acid (Nephro-Edi) 1 tab PO 0800 [facility] Last Admin: 08/01/18 08:28 Dose: 1 tab - Labs Labs: 08/01/18 07:39 08/01/18 07:39 PT 12.1 SECONDS (9.7-12.2) 07/28/18 16:41 INR 1.1 07/28/18 16:41 APTT 35 SECONDS (21-34) H 07/28/18 16:41 - Constitutional Appears: No Acute Distress, Chronically Ill - Head Exam Head Exam: ATRAUMATIC, NORMAL INSPECTION - Eye Exam Eye Exam: EOMI, Normal appearance - Neck Exam Neck Exam: Normal Inspection. absent: Tenderness - Respiratory Exam Respiratory Exam: Clear to Ausculation Bilateral, NORMAL BREATHING PATTERN - Cardiovascular Exam Cardiovascular Exam: REGULAR RHYTHM, +S1 - GI/Abdominal Exam GI & Abdominal Exam: Soft. absent: Tenderness - Extremities Exam Extremities Exam: Normal Inspection. absent: Tenderness - Neurological Exam Neurological Exam: Awake, CN II-XII Intact - Skin Skin Exam: Dry, Warm Assessment and Plan (1) ESRD (end stage renal disease) Status: Acute (2) Hypertensive chronic kidney disease with stage 5 chronic kidney disease or end stage renal disease Status: Acute (3) Intravenous drug abuse Status: Acute - Assessment and Plan (Free Text) Plan: Add IV Fe Continue EPO Dialysis MWF Same meds
[2018-08-01] MEDS ORDERED: Ferric Sodium Gluconat Complex 62.5 mg/5 ml Vial IVPB SCH (11:00)
[2018-08-01] MEDS ORDERED: Ferric Sodium Gluconat Complex 62.5 MG in Sodium Chloride 0.9% 100 ML IVPB SCH (12:00)
[2018-08-01] MEDS ORDERED: Ferric Sodium Gluconat Complex 125 MG in Sodium Chloride 0.9% 100 ML IVPB SCH (12:15)
--- NOTE | 2018-08-01 12:45 | CP.PCM.PN ---
Subjective - Date & Time of Evaluation Date of Evaluation: 08/01/18 Time of Evaluation: 11:40 Objective - Vital Signs/Intake and Output Vital Signs (last 24 hours): Temp Pulse Resp BP Pulse Ox 98.4 F 80 20 157/86 H 93 L 08/01/18 07:50 08/01/18 08:10 08/01/18 07:50 08/01/18 07:50 08/01/18 07:50 - Medications Medications: Current Medications Amlodipine Besylate (Norvasc) 10 mg PO DAILY [facility] Last Admin: 08/01/18 11:30 Dose: 10 mg Aspirin (Aspirin) 325 mg PO DAILY [facility] Last Admin: 08/01/18 11:29 Dose: 325 mg Calcium Acetate (Phoslo) 667 mg PO TIDCC [facility] Last Admin: 08/01/18 08:28 Dose: 667 mg Clonidine HCl (Catapres) 0.2 mg PO DAILY [facility] Last Admin: 08/01/18 11:30 Dose: 0.2 mg Docusate Sodium (Colace) 100 mg PO DAILY [facility] Last Admin: 08/01/18 11:37 Dose: 100 mg Epoetin Ovi (Procrit) 10,000 unit IV MWF [facility] Last Admin: 07/31/18 18:36 Dose: 10,000 unit Ferric Sodium Gluconate Complex 125 mg/ Sodium Chloride 110 mls @ 110 mls/hr IVPB Q24H [facility] Stop: 08/09/18 12:01 Lactulose (Enulose) 20 gm PO HS [facility] Last Admin: 07/31/18 23:18 Dose: 20 gm Oxycodone/Acetaminophen (Percocet 5/325 Mg Tab) 2 tab PO Q4H PRN PRN Reason: Pain, moderate (4-7) Stop: 08/03/18 12:41 Last Admin: 08/01/18 11:30 Dose: 2 tab Rosuvastatin Calcium (Crestor) 10 mg PO HS [facility] Last Admin: 07/31/18 23:18 Dose: 10 mg Vitamin B Complex/Vit C/Folic Acid (Nephro-Edi) 1 tab PO 0800 [facility] Last Admin: 08/01/18 08:28 Dose: 1 tab - Labs Labs: 08/01/18 07:39 08/01/18 07:39 PT 12.1 SECONDS (9.7-12.2) 07/28/18 16:41 INR 1.1 07/28/18 16:41 APTT 35 SECONDS (21-34) H 07/28/18 16:41
--- NOTE | 2018-08-01 14:15 | CP.PCM.DIS ---
Provider - Provider Date of Admission: 07/28/18 18:22 Attending physician: Ponce Mendenhall MD Time Spent in preparation of Discharge (in minutes): 30 Hospital Course - Lab Results Lab Results: Most Recent Lab Values WBC 9.8 K/uL (4.8-10.8) 08/01/18 07:39 RBC 2.91 Mil/uL (4.40-5.90) L 08/01/18 07:39 Hgb 9.1 g/dL (12.0-18.0) L 08/01/18 07:39 Hct 26.6 % (35.0-51.0) L 08/01/18 07:39 MCV 91.4 fL (80.0-94.0) 08/01/18 07:39 MCH 31.3 pg (27.0-31.0) H 08/01/18 07:39 MCHC 34.3 g/dL (33.0-37.0) 08/01/18 07:39 RDW 13.4 % (11.5-14.5) 08/01/18 07:39 Plt Count 275 K/uL (130-400) 08/01/18 07:39 MPV 9.5 fL (7.2-11.7) 08/01/18 07:39 Neut % (Auto) 69.7 % (50.0-75.0) 08/01/18 07:39 Lymph % (Auto) 16.6 % (20.0-40.0) L 08/01/18 07:39 [place] % (Auto) 10.4 % (0.0-10.0) H 08/01/18 07:39 Eos % (Auto) 2.4 % (0.0-4.0) 08/01/18 07:39 Baso % (Auto) 0.9 % (0.0-2.0) 08/01/18 07:39 Neut # (Auto) 6.8 K/uL (1.8-7.0) 08/01/18 07:39 Lymph # (Auto) 1.6 K/uL (1.0-4.3) 08/01/18 07:39 [place] # (Auto) 1.0 K/uL (0.0-0.8) H 08/01/18 07:39 Eos # (Auto) 0.2 K/uL (0.0-0.7) 08/01/18 07:39 Baso # (Auto) 0.1 K/uL (0.0-0.2) 08/01/18 07:39 PT 12.1 SECONDS (9.7-12.2) 07/28/18 16:41 INR 1.1 07/28/18 16:41 APTT 35 SECONDS (21-34) H 07/28/18 16:41 Sodium 135 mmol/L (132-148) 08/01/18 07:39 Potassium 4.2 mmol/L (3.6-5.2) 08/01/18 07:39 Chloride 95 mmol/L (98-107) L 08/01/18 07:39 Carbon Dioxide 25 mmol/L (22-30) 08/01/18 07:39 Anion Gap 19 (10-20) 08/01/18 07:39 BUN 41 mg/dL (9-20) H 08/01/18 07:39 Creatinine 7.4 mg/dL (0.8-1.5) H* D 08/01/18 07:39 Est GFR ( Amer) 11 08/01/18 07:39 Est GFR (Non-Af Amer) 9 08/01/18 07:39 POC Glucose (mg/dL) 110 mg/dL (65-110) 08/01/18 06:28 Random Glucose 105 mg/dL (75-110) 08/01/18 07:39 Hemoglobin A1c 5.3 % (4.2-6.5) 07/28/18 16:41 Calcium 8.4 mg/dl (8.6-10.4) L 08/01/18 07:39 Phosphorus 7.3 mg/dL (2.5-4.5) H 07/31/18 08:11 Magnesium 2.1 mg/dL (1.6-2.3) 07/31/18 08:11 Iron 43 ug/dL (49-181) L 07/31/18 16:16 TIBC 285 ug/dL (250-450) 07/31/18 16:16 % Saturation 15 (20-55) L 07/31/18 16:16 Ferritin 55.9 ng/mL 07/31/18 16:16 Total Bilirubin 0.4 mg/dL (0.2-1.3) 08/01/18 07:39 AST 22 U/L (17-59) 08/01/18 07:39 ALT 18 U/L (21-72) L 08/01/18 07:39 Alkaline Phosphatase 81 U/L (38-126) 08/01/18 07:39 Troponin I < 0.0120 ng/mL (0.00-0.120) 07/28/18 16:41 Total Protein 7.9 g/dL (6.3-8.3) 08/01/18 07:39 Albumin 4.4 g/dL (3.5-5.0) 08/01/18 07:39 Globulin 3.4 gm/dL (2.2-3.9) 08/01/18 07:39 Albumin/Globulin Ratio 1.3 (1.0-2.1) 08/01/18 07:39 Triglycerides 514 mg/dL (0-149) H D 07/29/18 15:36 Cholesterol 224 mg/dL (0-199) H 07/29/18 15:36 LDL Cholesterol Direct 120 mg/dL (0-129) 07/29/18 15:36 HDL Cholesterol 21 mg/dL (30-70) L 07/29/18 15:36 Urine Opiates Screen Negative (NEGATIVE) 07/30/18 16:57 Urine Methadone Screen Negative (NEGATIVE) 07/30/18 16:57 Ur Barbiturates Screen Negative (NEGATIVE) 07/30/18 16:57 Ur Phencyclidine Scrn Positive (NEGATIVE) H 07/30/18 16:57 Ur Amphetamines Screen Negative (NEGATIVE) 07/30/18 16:57 U Benzodiazepines Scrn Negative (NEGATIVE) 07/30/18 16:57 U Oth Cocaine Metabols Negative (NEGATIVE) 07/30/18 16:57 U Cannabinoids Screen Negative (NEGATIVE) 07/30/18 16:57 Blood Type O NEGATIVE 07/28/18 16:41 Antibody Screen Negative 07/28/18 16:41 - Hospital Course Hospital Course: Patient was admitted from the emergency room with left-sided numbness and no motor deficit. Patient recently was diagnosed with chronic renal failure on hemodialysis. Patient is noncompliant with hemodialysis and missed a few sessions which he presented himself to bed on hospital recently for dialysis. Patient stated 30 minutes prior to admission patient had numbness on the left side of the face left upper and lower extremity. There was no any motor deficit and a loss of consciousness or any other neurological symptom. Patient has a history of hypertension and is also noncompliant with his medication. Neuro and nephrology consults were obtained. Preliminary neuro workup was negative. MRI of the head could not be done as patient refused because of severe claustrophobia in spite of patient given antianxiety medication. As the patient improved his neurological symptoms further workup was on hold. Patient also had an ABC in place on the left arm and post dialysis there was a shunt currently patient has no symptoms and is refusing all further workup and tests. Patient will be discharged to be followed by the nephrology for further treatment. Discharge Exam - Head Exam Head Exam: ATRAUMATIC, NORMAL INSPECTION Discharge Plan - Discharge Medications Prescriptions: RX: cloNIDine [Catapres] 0.2 mg PO DAILY #30 tab Rosuvastatin Calcium 2.5 [Crestor] 5 mg PO HS #30 tab RX: Vitamin B Complex/Vit C/Folic [Nephro-Edi] 1 tab PO 0800 #30 tab RX: amLODIPine [Norvasc] 10 mg PO DAILY #30 tab RX: Calcium Acetate [Phoslo] 667 mg PO TIDCC #90 tab Acetaminophen [Tylenol] 650 mg PO Q6 PRN #30 capsule PRN Reason: Pain, Moderate (4-7) - Follow Up Plan Condition: STABLE Disposition: HOME/ ROUTINE Instructions: Quitting Smoking for Older Adults, Smoking: Not Just Harmful to Your Lungs and Heart, Dialysis Diet , Stroke (DC), Arteriovenous Fistula for Dialysis (DC), Amlodipine, Calcium Acetate, Rosuvastatin, End Stage Kidney Disease (DC) Additional Instructions: Please follow up with Dr. Mendenhall office in 1 week Please follow up with office in 10 days- call and make appointment ( f/u visit for the AV fistula ) continue HD as scheduled MWF Referrals: Evan Roman Jr., MD [Staff Provider] - Ponce Mendenhall MD [Staff Provider] -
[2018-08-04 20:54] VITALS: O2SAT 95
== END 2018-08-01 15:36 | disposition home or self-care (01) | DRG 315 ==
LOC: C.ER 15:47 → MERGE 18:22 → C.9E 18:22 → C.6T 19:47
PROVIDERS: ADMIT Internal Medicine Cardiovascular Disease; ATTEND Internal Medicine Cardiovascular Disease
PROC: 5A1D70Z Performance of Urinary Filtration, Intermittent, Less than 6 Hours Per Day (ICD-10-PCS; 2018-07-29)
PROC: 031C09F Bypass Left Radial Artery to Lower Arm Vein with Autologous Venous Tissue, Open Approach (ICD-10-PCS; principal; 2018-07-31 10:00)
DX: N17.9 Acute kidney failure, unspecified (principal); I12.0 Hypertensive chronic kidney disease with stage 5 chronic kidney disease or end stage renal disease; F16.20 Hallucinogen dependence, uncomplicated; N18.6 End stage renal disease; F17.210 Nicotine dependence, cigarettes, uncomplicated; Z91.14 Patient's other noncompliance with medication regimen; Z91.15 Patient's noncompliance with renal dialysis; Z99.2 Dependence on renal dialysis; F40.240 Claustrophobia; F12.20 Cannabis dependence, uncomplicated; R20.0 Anesthesia of skin

== ENCOUNTER 2018-09-03 07:46 | Inpatient (IN) | payer MEDICAID ==
[2018-09-03 07:46] VITALS: BMI 46.3
--- NOTE | 2018-09-03 08:37 | C.PDOC ---
History Of Present Illness 28 y/o male with history of ESRD, dialysis on (MWF) presents to ED with c/o catheter bleeding while he was cleaning it in the shower this morning. Patient reports last dialysis was sunday08/28/18, states "I was tired to go on Sun day and Yesterday". Patient denies chest pain, nausea, vomiting, headache, sob or any other complaints at this time. Time Seen by Provider: 09/03/18 07:59 Chief Complaint (Nursing): Vascular Access Device Problem History Per: Patient History/Exam Limitations: no limitations Onset/Duration Of Symptoms: Hrs Current Symptoms Are (Timing): Still Present Past Medical History Reviewed: Historical Data, Nursing Documentation, Vital Signs Vital Signs: Last Vital Signs Temp 98.4 F 09/03/18 07:47 Pulse 99 H 09/03/18 07:47 Resp 18 09/03/18 07:47 BP 163/111 H 09/03/18 07:47 Pulse Ox 96 09/03/18 07:47 - Medical History PMH: Asthma, HTN, Hypercholesterolemia, End Stage Renal Disease (on dialysis M-W-F) Surgical History: No Surg Hx - [facility] Procedures (07/28/18) BYPASS L RADIAL ART TO LOW ARM VEIN W AUTOL VN, OPEN (07/28/18) CLOSURE SKIN & SUBCUTANEOUS NEC (11/25/01) Family History: States: No Known Family Hx - Social History Hx Tobacco Use: Yes Hx Alcohol Use: Yes Hx Substance Use: Yes - Immunization History Hx Tetanus Toxoid Vaccination: No (unknown) Hx Influenza Vaccination: No Hx Pneumococcal Vaccination: No Review Of Systems Constitutional: Negative for: Fever, Chills Cardiovascular: Negative for: Chest Pain Respiratory: Negative for: Cough, Shortness of Breath Gastrointestinal: Negative for: Nausea, Vomiting Skin: Positive for: Other (catheter bleeding). Negative for: Rash Physical Exam - Physical Exam Appears: Non-toxic, No Acute Distress, Other (Obese) Skin: Warm, Dry, No Rash Head: Atraumatic, Normacephalic Eye(s): bilateral: Normal Inspection Oral Mucosa: Moist Neck: Normal ROM, Supple Chest: Other (dialysis catheter in right upper chest) Cardiovascular: Rhythm Regular Respiratory: Rales, No Rhonchi, No Wheezing Gastrointestinal/Abdominal: Soft, No Tenderness, No Guarding, No Rebound Extremity: Capillary Refill (<2 seconds), No Deformity, Other (AV fistula on left arm, +thrill) ED Course And Treatment - Laboratory Results Result Diagrams: 09/03/18 08:56 09/03/18 08:56 O2 Sat by Pulse Oximetry: 96 (RA) Pulse Ox Interpretation: Normal Medical Decision Making Medical Decision Making: Prior records reviewed: Patient seen at [facility] ED on 07/23/18 for dyspnea secondary to uremia. Plan: ECG, CXR, Blood work ordered. 10:36am - Left message for Dr. Butler. 10:44am - Officed paged Dr. Gambino covering for Dr. Butler. 10:51am - Spoke with Dr. Gambino regarding the patient's case. Case was discussed with Dr. Mendenhall (internal medicine) who agrees to admit the patient to his service. Disposition - Disposition Disposition: HOSPITALIZED Disposition Time: 10:00 Condition: FAIR - POA Present On Arrival: None - Clinical Impression Clinical Impression: ESRD (end stage renal disease), Hyperkalemia, Uremia - PA / REGISTER IN CHANCERY / Resident Statement MD/DO has reviewed & agrees with the documentation as recorded. - Scribe Statement The provider has reviewed the documentation as recorded by the Alf Wilson All medical record entries made by the Alf were at my direction and personally dictated by me. I have reviewed the chart and agree that the record accurately reflects my personal performance of the history, physical exam, medical decision making, and the department course for this patient. I have also personally directed, reviewed, and agree with the discharge instructions and disposition.
[2018-09-03 09:00] LABS: EOS # 0.5 K/uL (0.0-0.7); HEMOGLOBIN 9.8 g/dL (12.0-18.0); MEAN CORPUSCULAR HGB CONC 32.7 g/dL (33.0-37.0); MONO # 0.7 K/uL (0.0-0.8)
[2018-09-03 09:02] LABS: BASO % 0.2 % (0.0-2.0); EOS % 5.7 % (0.0-4.0); LYMPH # 2.3 K/uL (1.0-4.3); LYMPH % 26.1 % (20.0-40.0); MEAN CORPUSCULAR HEMOGLOBIN 30.6 pg (27.0-31.0); MEAN PLATELET VOLUME 9.9 fL (7.2-11.7); MONO % 8.4 % (0.0-10.0); NEUT # 5.2 K/uL (1.8-7.0); NEUT % 59.6 % (50.0-75.0); RBC 3.21 Mil/uL (4.40-5.90); WHITE BLOOD COUNT 8.7 K/uL (4.8-10.8)
[2018-09-03 09:04] LABS: MEAN CELL VOLUME 93.7 fL (80.0-94.0)
[2018-09-03 09:38] LABS: INR 1.1
[2018-09-03 09:40] LABS: B-TYPE NATRIURETIC PEPTIDE 1680 pg/mL (0-450)
[2018-09-03 10:10] LABS: BLOOD UREA NITROGEN 72 mg/dL (9-20); GFR NON-AFRICAN AMERICAN 5
[2018-09-03 10:11] LABS: ALB/GLOB RATIO 1.2 (1.0-2.1); ALBUMIN 4.3 g/dL (3.5-5.0); ALT/SGPT 28 U/L (21-72); AST/SGOT 21 U/L (17-59); CALCIUM 8.9 mg/dl (8.6-10.4)
[2018-09-03] MEDS ORDERED: Sodium Bicarbonate (8.4%) 50 Meq Syringe IVP ONE (10:22)
[2018-09-03] MEDS ORDERED: (Novolin R) Insulin Human Regular 100 units/ml vial IVP STA (10:25)
[2018-09-03] MEDS ORDERED: Dextrose 50% SYRINGE Inj (50 ml) IV STA (10:26)
[2018-09-03] MEDS ORDERED: Albuterol 0.083% Inhal Sol (2.5 mg/3 mL) UD IH STA (10:27)
[2018-09-03] MEDS ORDERED: (Novolin R) Insulin Human Regular 100 units/ml vial ONE (10:35)
[2018-09-03] MEDS ORDERED: Sodium Bicarbonate (8.4%) 50 Meq Syringe ONE (10:35)
[2018-09-03] MEDS ORDERED: Dextrose 50% SYRINGE Inj (50 ml) ONE (10:37)
[2018-09-03] MEDS ORDERED: Albuterol 0.083% Inhal Sol (2.5 mg/3 mL) UD ONE (10:38)
--- NOTE | 2018-09-03 10:50 | RAD ---
Chest x-ray single frontal view HISTORY: Chest pain. COMPARISON: 07/11/2018 Findings: Right central venous catheter with tip extending into the right atrium. Mild venous congestion. Enlarged ectatic aorta. Cardiomegaly. Degenerative changes in the spine. Impression: Right central venous catheter with tip extending into the right atrium. Mild venous congestion. Enlarged ectatic aorta. Cardiomegaly.
[2018-09-03] MEDS ORDERED: Epoetin Alfa 10,000 unit/ml Dialysis IV ONE (11:59)
--- NOTE | 2018-09-03 13:26 | CP.PCM.CON ---
History of Present Illness - History of Present Illness History of Present Illness: known to me from previous hospitalization 28 y/o male with history of ESRD, dialysis on (MWF) presents to ED with c/o catheter bleeding while he was cleaning it in the shower this morning. Patient reports last dialysis was sunday08/28/18, states "I was tired to go on Sunday and Yesterday". Patient denies chest pain, nausea, vomiting, headache, sob or any other complaints at this time. recent start of hd earlier this year, refused av access. PMH: HTN IVDA ESRD PSH: permcath nkda soc hx: hx of ivda, tobacco use and etoh family hx: neg for kidney dz in family Review of Systems - Review of Systems All systems: reviewed and no additional remarkable complaints except (as per hpi) Past Patient History - Infectious Disease Hx of Infectious Diseases: None - Tetanus Immunizations Tetanus Immunization: Unknown - Past Medical History & Family History Past Medical History?: Yes - Past Social History Smoking Status: Former Smoker - CARDIAC Hx Hypercholesterolemia: Yes Hx Hypertension: Yes - PULMONARY Hx Asthma: Yes - NEUROLOGICAL Hx Neurological Disorder: No - HEENT Hx HEENT Problems: No - RENAL Hx Chronic Kidney Disease: No - ENDOCRINE/METABOLIC Hx Endocrine Disorders: No - HEMATOLOGICAL/ONCOLOGICAL Hx Blood Disorders: No - INTEGUMENTARY Hx Dermatological Problems: No - MUSCULOSKELETAL/RHEUMATOLOGICAL Hx Musculoskeletal Disorders: No Hx Falls: No - GASTROINTESTINAL Hx Gastrointestinal Disorders: No - GENITOURINARY/GYNECOLOGICAL Hx Genitourinary Disorders: No - PSYCHIATRIC Hx Substance Use: Yes - SURGICAL HISTORY Hx Surgeries: No Other/Comment: LEFT HEAD SURGERY DUE TO INJURY - ANESTHESIA Hx Anesthesia: No Meds Allergies/Adverse Reactions: Allergies Allergy/AdvReac Type Severity Reaction Status Date / Time FISH Allergy REDNESS Verified 09/03/18 07:56 Physical Exam - Constitutional Appears: Non-toxic, No Acute Distress, Chronically Ill - Head Exam Head Exam: NORMAL INSPECTION, NORMOCEPHALIC - Eye Exam Eye Exam: Normal appearance, PERRL - ENT Exam ENT Exam: Mucous Membranes Moist, Normal Exam - Neck Exam Neck exam: Positive for: Normal Inspection - Respiratory Exam Respiratory Exam: Decreased Breath Sounds, NORMAL BREATHING PATTERN - Cardiovascular Exam Cardiovascular Exam: REGULAR RHYTHM, RRR - GI/Abdominal Exam GI & Abdominal Exam: Distended, Normal Bowel Sounds, Soft - Extremities Exam Extremities exam: Positive for: normal inspection, pedal edema - Neurological Exam Neurological exam: Alert, Oriented x3 - Psychiatric Exam Psychiatric exam: Normal Affect, Normal Mood - Skin Skin Exam: Dry, Intact, Warm Results - Vital Signs Recent Vital Signs: Last Vital Signs Temp 98 F 09/03/18 13:24 Pulse 97 H 09/03/18 13:24 Resp 18 09/03/18 10:14 BP 152/67 H 09/03/18 13:24 Pulse Ox 98 09/03/18 13:24 - Labs Result Diagrams: 09/03/18 08:56 09/03/18 08:56 Labs: Laboratory Results - last 24 hr 09/03/18 09/03/18 09/03/18 08:56 08:56 08:56 WBC 8.7 RBC 3.21 L Hgb 9.8 L Hct 30.1 L MCV 93.7 D MCH 30.6 MCHC 32.7 L RDW 15.0 H Plt Count 248 MPV 9.9 Neut % (Auto) 59.6 Lymph % (Auto) 26.1 [place] % (Auto) 8.4 Eos % (Auto) 5.7 H Baso % (Auto) 0.2 Neut # (Auto) 5.2 Lymph # (Auto) 2.3 [place] # (Auto) 0.7 Eos # (Auto) 0.5 Baso # (Auto) 0.0 PT 12.0 INR 1.1 APTT 34 Sodium 142 Potassium 6.6 H* D Chloride 108 H Carbon Dioxide 19 L Anion Gap 22 H BUN 72 H Creatinine 11.1 H* D Est GFR ( Amer) 7 Est GFR (Non-Af Amer) 5 Random Glucose 79 Calcium 8.9 Total Bilirubin 0.4 AST 21 ALT 28 Alkaline Phosphatase 84 Troponin I < 0.0120 NT-Pro-B Natriuret Pep 1680 H Total Protein 7.9 Albumin 4.3 Globulin 3.7 Albumin/Globulin Ratio 1.2 Assessment & Plan (1) Anemia Status: Acute (2) ESRD (end stage renal disease) Status: Acute (3) HTN (hypertension) Status: Acute (4) Intravenous drug abuse Status: Acute - Assessment and Plan (Free Text) Assessment: hd today renal diet resume home bp meds
--- NOTE | 2018-09-03 14:19 | CP.PCM.HP ---
History of Present Illness - History of Present Illness History of Present Illness: COMPREHENSIVE CONSULT HPI Patient is admitted from emergency room with increasing potassium of 6.6 as patient has missed his dialysis session. Patient has a chronic renal failure on hemodialysis who was recently admitted with numbness on the left side of the body and a neuro workup was negative. Patient is noncompliant with medication and also dialysis sessions patient stat ed that he was apparently bleeding from the shunt and catheter this morning. Last admission patient had a left left arm AV fistula. PAST HIST. PERSONAL HIST: Smoking. N Alcohol. N Allergy N Travel_- . FAMILY HIST : ROS : Constitutional: Negative for weight change, chills, night sweats, fatigue and usage of assist device. Eyes: Negative for redness, swelling, itching, discharge, vision changes, blurry vision, double vision, glaucoma, cataracts, Ears: Negative for hearing loss, ringing, , tinnitus, vertigo Nose: Negative for rhinorrhea, stuffiness, sniffing, itching, postnasal drip, discoloration, nasal congestion and epistaxis. Throat: Negative for throat clearing, sore throat, hoarseness, difficulty swallowing and difficulty speaking. Respiratory: Negative for cough, , sputum production, chest tightness, wheezing, pleuritic chest pain ,daytime somnolence, chronic cough, hemoptysis, snoring at night, Cardiovascular: Negative for chest pain, palpitations, orthopnea, PND, Edema of legs, leg cramps, angina, claudication, , irregular heartbeat, Neurology: Negative for irritability, muscle weakness, numbness and tingling, seizures, tremors, migraines, slurred speech, syncope, memory loss, mood changes, recurrent headaches Gastrointestinal: Negative for difficulty swallowing, diarrhea, constipation, black stools, rectal bleeding, nausea, flatulence, reflux, poor appetite, changes in bowel habits, abdominal pain Genitourinary: Negative for frequent urination, hematuria, discharge, incontinence, urinary retention, frequent UTI, Psychiatric: Negative for depression, anxiety/panic, suicidal tendencies, Musculoskeletal: Negative for swollen joints, back pain, , neck pain, morning stiffness of joints, . Skin: Negative for rash, ulcers, itching, dry skin and pigmented lesions. P/E: Constitutional: Appears stated age and in no apparent distress. Head: Normocephalic. Ears: External ear canals patent without inflammation. Tympanic membranes intact with normal light reflex and landmark. Eyes: Pupils are central, bilaterally equal, symmetrical and reacts to light with normal movements and no icterus or pallor. Nose: External nares are patent. Mucosa is pink Mouth-Throat: Good general appearance and condition. No post-pharyngeal/oropharyngeal erythema and tonsillar hypertrophy. Good dental hygiene. Neck-Lymphatic: Neck is supple with normal ROM, no thyromegaly, lymph nodes or masses. JVD is normal with no carotid bruit. Lungs: Clear to percussion and auscultation with bilateral normal air entry. Cardiovascular: S1 and S2 are normal with no murmurs, gallops and rub. GI Exam: No hepatomegaly. Abdomen is soft and non-tender. No Organomegaly , masses or hernias are evident and bowel sounds are normal and active. Neurology: Higher function and all cranial nerves intact, with no gross motor or sensory deficit. Superficial and deep reflexes are normal with downwards planters. No cerebellar deficit with normal gait. Musculoskeletal: No tender spots with normal curvature of the spine with no swelling or restricted ROM of the small and large joints. Extremities: Homans sign absent. Intact pulses with no pitting edema, calf tenderness or skin color changes. Skin: No rash, eruptions or abnormal skin pigmentation LAB/RADIOLOGY: ASSESMENT : Chronic renal failure on hemodialysis with elevated potassium. Hypertension PLAN: Emergent hemodialysis and monitor electrolytes and blood pressure. Present on Admission - Present on Admission Any Indicators Present on Admission: No Past Patient History - Infectious Disease Hx of Infectious Diseases: None - Tetanus Immunizations Tetanus Immunization: Unknown - Past Medical History & Family History Past Medical History?: Yes - Past Social History Smoking Status: Former Smoker - CARDIAC Hx Hypercholesterolemia: Yes Hx Hypertension: Yes - PULMONARY Hx Asthma: Yes - NEUROLOGICAL Hx Neurological Disorder: No - HEENT Hx HEENT Problems: No - RENAL Hx Chronic Kidney Disease: No - ENDOCRINE/METABOLIC Hx Endocrine Disorders: No - HEMATOLOGICAL/ONCOLOGICAL Hx Blood Disorders: No - INTEGUMENTARY Hx Dermatological Problems: No - MUSCULOSKELETAL/RHEUMATOLOGICAL Hx Musculoskeletal Disorders: No Hx Falls: No - GASTROINTESTINAL Hx Gastrointestinal Disorders: No - GENITOURINARY/GYNECOLOGICAL Hx Genitourinary Disorders: No - PSYCHIATRIC Hx Substance Use: Yes - SURGICAL HISTORY Hx Surgeries: No Other/Comment: LEFT HEAD SURGERY DUE TO INJURY - ANESTHESIA Hx Anesthesia: No Meds Allergies/Adverse Reactions: Allergies Allergy/AdvReac Type Severity Reaction Status Date / Time FISH Allergy REDNESS Verified 09/03/18 07:56 Results - Vital Signs Recent Vital Signs: Last Vital Signs Temp 98 F 09/03/18 13:24 Pulse 97 H 09/03/18 13:24 Resp 18 09/03/18 10:14 BP 152/67 H 09/03/18 13:24 Pulse Ox 98 09/03/18 13:24 - Labs Result Diagrams: 09/03/18 08:56 09/03/18 08:56 Labs: Laboratory Results - last 24 hr 09/03/18 09/03/18 09/03/18 08:56 08:56 08:56 WBC 8.7 RBC 3.21 L Hgb 9.8 L Hct 30.1 L MCV 93.7 D MCH 30.6 MCHC 32.7 L RDW 15.0 H Plt Count 248 MPV 9.9 Neut % (Auto) 59.6 Lymph % (Auto) 26.1 [place] % (Auto) 8.4 Eos % (Auto) 5.7 H Baso % (Auto) 0.2 Neut # (Auto) 5.2 Lymph # (Auto) 2.3 [place] # (Auto) 0.7 Eos # (Auto) 0.5 Baso # (Auto) 0.0 PT 12.0 INR 1.1 APTT 34 Sodium 142 Potassium 6.6 H* D Chloride 108 H Carbon Dioxide 19 L Anion Gap 22 H BUN 72 H Creatinine 11.1 H* D Est GFR ( Amer) 7 Est GFR (Non-Af Amer) 5 Random Glucose 79 Calcium 8.9 Total Bilirubin 0.4 AST 21 ALT 28 Alkaline Phosphatase 84 Troponin I < 0.0120 NT-Pro-B Natriuret Pep 1680 H Total Protein 7.9 Albumin 4.3 Globulin 3.7 Albumin/Globulin Ratio 1.2
[2018-09-03 17:08] VITALS: O2SAT 96
[2018-09-03 17:40] VITALS: BP 164/92; PULSE 90; RESP 16; TEMP 97.9
[2018-09-03] MEDS ORDERED: Rosuvastatin Calcium 2.5 mg Tab PO SCH (22:00)
--- NOTE | 2018-09-04 11:52 | CARD ---
APPROVED REPORT Date of service: 09/03/2018 EKG Measurement Heart [id number] <Conclusion> Normal sinus rhythm Cannot rule out Anterior infarct, age undetermined Abnormal ECG
== END 2018-09-03 17:40 | disposition left against medical advice (07) | DRG 316 ==
LOC: C.ER 07:46 → C.9E 10:59 → C.5S 13:17
PROVIDERS: ADMIT Internal Medicine Cardiovascular Disease; ATTEND Internal Medicine Cardiovascular Disease
DX: I12.0 Hypertensive chronic kidney disease with stage 5 chronic kidney disease or end stage renal disease (principal); N18.6 End stage renal disease; E87.5 Hyperkalemia; J45.909 Unspecified asthma, uncomplicated; Z87.891 Personal history of nicotine dependence; Z91.14 Patient's other noncompliance with medication regimen; Z99.2 Dependence on renal dialysis; Z91.15 Patient's noncompliance with renal dialysis; F19.10 Other psychoactive substance abuse, uncomplicated; E78.00 Pure hypercholesterolemia, unspecified

== ENCOUNTER 2019-01-12 05:13 | Observation (INO) | payer MEDICAID ==
[2019-01-12 05:14] VITALS: BMI 46.3
--- NOTE | 2019-01-12 05:32 | C.PDOC ---
History Of Present Illness Pt on hd, had HD yesterday at [facility] and signed himself out AMA. Complains of chest pain . No f/c/n/v. Speaking in complete sentences Time Seen by Provider: 01/12/19 05:32 Chief Complaint (Nursing): Chest Pain Past Medical History Reviewed: Historical Data, Nursing Documentation, Vital Signs Vital Signs: Last Vital Signs Temp 98.5 F 01/12/19 05:21 Pulse 101 H 01/12/19 05:21 Resp 18 01/12/19 05:21 BP 128/76 01/12/19 05:21 Pulse Ox 96 01/12/19 05:21 - Medical History PMH: Asthma, HTN, Hypercholesterolemia, End Stage Renal Disease (on dialysis ) Denies: Chronic Kidney Disease - [facility] Procedures (07/28/18) BYPASS L RADIAL ART TO LOW ARM VEIN W AUTOL VN, OPEN (07/28/18) CLOSURE SKIN & SUBCUTANEOUS NEC (11/25/01) Family History: States: No Known Family Hx - Social History Hx Tobacco Use: Yes Hx Alcohol Use: Yes Hx Substance Use: Yes - Immunization History Hx Tetanus Toxoid Vaccination: Yes Hx Influenza Vaccination: No Hx Pneumococcal Vaccination: No Review Of Systems Constitutional: Negative for: Fever, Chills ENT: Negative for: Throat Pain Cardiovascular: Positive for: Chest Pain Respiratory: Negative for: Shortness of Breath Gastrointestinal: Negative for: Nausea, Vomiting, Abdominal Pain Musculoskeletal: Negative for: Back Pain Skin: Negative for: Rash Neurological: Negative for: Weakness Psych: Positive for: Anxiety Physical Exam - Physical Exam Appears: Non-toxic, No Acute Distress Skin: Warm, Dry Eye(s): bilateral: Normal Inspection Oral Mucosa: Moist Neck: Trachea Midline, Supple Chest: Symmetrical, Other (hd port right chest) Cardiovascular: Rhythm Regular Respiratory: No Rales, No Rhonchi, No Wheezing Gastrointestinal/Abdominal: Soft, No Tenderness, No Distention Back: No CVA Tenderness Extremity: Normal ROM Extremity: Bilateral: Atraumatic Pulses: Left Dorsalis Pedis: Normal, Right Dorsalis Pedis: Normal Neurological/Psych: Oriented x3 Gait: Steady ED Course And Treatment - Laboratory Results Result Diagrams: 01/12/19 05:55 01/12/19 05:55 ECG: Interpreted By Me, Viewed By Me ECG Rhythm: Sinus Rhythm (99), Nonspecific Changes O2 Sat by Pulse Oximetry: 96 Pulse Ox Interpretation: Normal - Radiology CXR: Interpreted by Me, Viewed By Me CXR Interpretation: Yes: Cardiomegaly, Other (hd shunt r chest, small left effusion). No: Infiltrates, Fracture Disposition Discussed With Dr.: Ponce Mendenhall Comment: accepted the pt on his service and took over the care at 6:35 AM Doctor Will See Patient In The: Hospital Counseled Patient/Family Regarding: Studies Performed, Diagnosis - Disposition Disposition: HOSPITALIZED Disposition Time: 06:35 Condition: FAIR Forms: [employer] (Japanese) - POA Present On Arrival: None - Clinical Impression Clinical Impression: Chest pain, CHF (congestive heart failure), ESRD needing dialysis Decision To Admit - Pt Status Changed To: Hospital Disposition Of: Observation - . Bed Request Type: Telemetry Admitting Physician: Ponce Mendenhall Patient Diagnosis: Chest pain, CHF (congestive heart failure), ESRD needing dialysis
[2019-01-12] MEDS ORDERED: Aspirin 325 mg EC Tablets PO STA (05:35)
[2019-01-12 06:00] LABS: BASO # 0.1 K/uL (0.0-0.2); BASO % 0.9 % (0.0-2.0); EOS # 0.3 K/uL (0.0-0.7); EOS % 3.1 % (0.0-4.0); HEMOGLOBIN 8.6 g/dL (12.0-18.0); LYMPH # 1.7 K/uL (1.0-4.3); LYMPH % 16.4 % (20.0-40.0); MEAN CELL VOLUME 87.2 fL (80.0-94.0); MEAN CORPUSCULAR HEMOGLOBIN 28.7 pg (27.0-31.0); MEAN CORPUSCULAR HGB CONC 32.9 g/dL (33.0-37.0); MEAN PLATELET VOLUME 9.5 fL (7.2-11.7); MONO # 1.3 K/uL (0.0-0.8); MONO % 11.8 % (0.0-10.0); NEUT # 7.3 K/uL (1.8-7.0); NEUT % 67.8 % (50.0-75.0); RBC 2.99 Mil/uL (4.40-5.90); RED CELL DISTRIBUTION WIDTH 14.9 % (11.5-14.5); WHITE BLOOD COUNT 10.7 K/uL (4.8-10.8)
[2019-01-12 06:10] LABS: INR 1.3
[2019-01-12 06:29] LABS: ALB/GLOB RATIO 1.3 (1.0-2.1); ALBUMIN 4.5 g/dL (3.5-5.0); CALCIUM 8.3 mg/dl (8.6-10.4)
[2019-01-12 06:30] LABS: TROPONIN I 0.033 ng/mL (0.00-0.120)
--- NOTE | 2019-01-12 08:28 | RAD ---
Chest x-ray single frontal view HISTORY: Chest pain. COMPARISON: 09/03/2018 FINDINGS: Lines and tubes in stable position. Mild venous congestion. Patchy increased markings at the left lung base with question small left pleural effusion. Cardiomegaly. Degenerative changes in the spine. Impression: Lines and tubes in stable position. Mild venous congestion. Patchy increased markings at the left lung base with question small left pleural effusion. Cardiomegaly.
[2019-01-12] MEDS: Multivitamin Vitamin B Complex (Nephro-Vite) Tab PO SCH (10:28)
--- NOTE | 2019-01-12 12:53 | CP.PCM.HP ---
History of Present Illness - History of Present Illness History of Present Illness: PT ADMITTED FROM ER WITH ATYPICAL CP . WAS IN [facility] AND SIGNED OUT AMA NON COMPLIANT ON MEDS AND DIALYSIS H/O HTN /CRF/HD Review of Systems - Review of Systems All systems: reviewed and no additional remarkable complaints except (BODY PAIN) Past Patient History - Infectious Disease Hx of Infectious Diseases: None - Tetanus Immunizations Tetanus Immunization: Unknown - Past Medical History & Family History Past Medical History?: Yes - Past Social History Smoking Status: Former Smoker - CARDIAC Hx Hypercholesterolemia: Yes Hx Hypertension: Yes - PULMONARY Hx Asthma: Yes - NEUROLOGICAL Hx Neurological Disorder: No - HEENT Hx HEENT Problems: No - RENAL Hx Chronic Kidney Disease: No - ENDOCRINE/METABOLIC Hx Endocrine Disorders: No - HEMATOLOGICAL/ONCOLOGICAL Hx Blood Disorders: No - INTEGUMENTARY Hx Dermatological Problems: No - MUSCULOSKELETAL/RHEUMATOLOGICAL Hx Falls: No - GASTROINTESTINAL Hx Gastrointestinal Disorders: No - GENITOURINARY/GYNECOLOGICAL Hx Genitourinary Disorders: No - PSYCHIATRIC Hx Substance Use: Yes - SURGICAL HISTORY Hx Surgeries: No Other/Comment: LEFT HEAD SURGERY DUE TO INJURY - ANESTHESIA Hx Anesthesia: No Meds Allergies/Adverse Reactions: Allergies Allergy/AdvReac Type Severity Reaction Status Date / Time FISH Allergy REDNESS Verified 09/03/18 07:56 Physical Exam - Head Exam Head Exam: ATRAUMATIC, NORMAL INSPECTION, NORMOCEPHALIC - Eye Exam Eye Exam: EOMI, Normal appearance, PERRL - ENT Exam ENT Exam: Mucous Membranes Moist, Normal Exam - Neck Exam Neck exam: Positive for: Normal Inspection - Respiratory Exam Respiratory Exam: Clear to Auscultation Bilateral, NORMAL BREATHING PATTERN - Cardiovascular Exam Cardiovascular Exam: REGULAR RHYTHM - Extremities Exam Extremities exam: Positive for: pedal edema (L ARM AV SHUNT ). Negative for: calf tenderness Results - Vital Signs Recent Vital Signs: Last Vital Signs Temp 98.4 F 01/12/19 06:30 Pulse 94 H 01/12/19 06:30 Resp 13 01/12/19 06:30 BP 120/67 01/12/19 06:30 Pulse Ox 96 01/12/19 10:30 - Labs Result Diagrams: 01/12/19 05:55 01/12/19 05:55 Labs: Laboratory Results - last 24 hr 01/12/19 01/12/19 01/12/19 05:55 05:55 05:55 WBC 10.7 RBC 2.99 L Hgb 8.6 L Hct 26.1 L MCV 87.2 D MCH 28.7 MCHC 32.9 L RDW 14.9 H Plt Count 298 MPV 9.5 Neut % (Auto) 67.8 Lymph % (Auto) 16.4 L [place] % (Auto) 11.8 H Eos % (Auto) 3.1 Baso % (Auto) 0.9 Neut # (Auto) 7.3 H Lymph # (Auto) 1.7 [place] # (Auto) 1.3 H Eos # (Auto) 0.3 Baso # (Auto) 0.1 PT 14.0 H INR 1.3 APTT 32 Sodium 138 Potassium 4.1 Chloride 95 L Carbon Dioxide 28 Anion Gap 20 BUN 47 H Creatinine 12.6 H* Est GFR ( Amer) 6 Est GFR (Non-Af Amer) 5 Random Glucose 106 D Calcium 8.3 L Total Bilirubin 0.3 AST 22 ALT 14 L D Alkaline Phosphatase 76 Troponin I 0.0330 NT-Pro-B Natriuret Pep 36021 H Total Protein 8.0 Albumin 4.5 Globulin 3.5 Albumin/Globulin Ratio 1.3 Lipase 122 Assessment & Plan (1) ESRD needing dialysis Status: Acute
[2019-01-12 17:01] VITALS: RESP 20
[2019-01-13] MEDS: Multivitamin Vitamin B Complex (Nephro-Vite) Tab PO SCH (08:07)
--- NOTE | 2019-01-13 11:16 | CP.PCM.CON ---
History of Present Illness - History of Present Illness History of Present Illness: 28 y/o WM presents with chest pains. Extremely noncompliant with dialysis- had missed several weeks of dialysis before recent admission at [facility]. Usually does not take meds as well as missing dialysis sessions. Last dialysis 01/10/19 at [facility]; then signed out AMA. Often uses illicit drugs. Has not seen psychiatry recently for psych meds. Has not allowed use AV F yet. PMH: ESRD HTN bipolar disease illicit drug use PSH: permcath left UE AV fistula Review of Systems - Constitutional Constitutional: Malaise, Weakness - EENT Eyes: absent: As Per HPI, Blind Spots, Blurred Vision, Change in Vision, Decreased Night Vision, Diplopia, Discharge, Dry Eye, Exophthalmos, Floaters, Irritation, Itchy Eyes, Loss of Peripheral Vision, Pain, Photophobia, Requires Corrective Lenses, Sees Flashes, Spots in Vision, Tunnel Vision, Other Visual Disturbances, Loss of Vision, Other Ears: absent: As Per HPI, Decreased Hearing, Ear Discharge, Ear Pain, Tinnitus, Abnormal Hearing, Disequilibrium, Dizziness, Other Nose/Mouth/Throat: absent: As Per HPI, Epistaxis, Nasal Congestion, Nasal Disch arge, Nasal Obstruction, Nasal Trauma, Nose Pain, Post Nasal Drip, Sinus Pain, Sinus Pressure, Bleeding Gums, Change in Voice, Dental Pain, Dry Mouth, Dysphagia, Halitosis, Hoarsness, Lip Swelling, Mouth Lesions, Mouth Pain, Odynophagia, Sore Throat, Throat Swelling, Tongue Swelling, Facial Pain, Neck Pain, Neck Mass, Other - Cardiovascular Cardiovascular: Chest Pain, Dyspnea on Exertion - Respiratory Respiratory: Dyspnea on Exertion - Gastrointestinal Gastrointestinal: Early Satiety - Genitourinary Genitourinary: As Per HPI - Musculoskeletal Musculoskeletal: Muscle Weakness, Myalgias - Psychiatric Psychiatric: Depression, Mood Swings Past Patient History - Infectious Disease Hx of Infectious Diseases: None - Tetanus Immunizations Tetanus Immunization: Unknown - Past Medical History & Family History Past Medical History?: Yes - Past Social History Smoking Status: Former Smoker Chewing Tobacco Use: No Cigar Use: No Alcohol: Occasional Drugs: Other Home Situation {Lives}: Alone - CARDIAC Hx Hypercholesterolemia: Yes Hx Hypertension: Yes - PULMONARY Hx Asthma: Yes - NEUROLOGICAL Hx Neurological Disorder: No - HEENT Hx HEENT Problems: No - RENAL Hx Chronic Kidney Disease: No - ENDOCRINE/METABOLIC Hx Endocrine Disorders: No - HEMATOLOGICAL/ONCOLOGICAL Hx Blood Disorders: No - INTEGUMENTARY Hx Dermatological Problems: No - MUSCULOSKELETAL/RHEUMATOLOGICAL Hx Falls: No - GASTROINTESTINAL Hx Gastrointestinal Disorders: No - GENITOURINARY/GYNECOLOGICAL Hx Genitourinary Disorders: No - PSYCHIATRIC Hx Substance Use: Yes - SURGICAL HISTORY Hx Surgeries: No Other/Comment: LEFT HEAD SURGERY DUE TO INJURY - ANESTHESIA Hx Anesthesia: No Meds Allergies/Adverse Reactions: Allergies Allergy/AdvReac Type Severity Reaction Status Date / Time FISH Allergy REDNESS Verified 09/03/18 07:56 - Medications Medications: Current Medications Acetaminophen (Tylenol 325mg Tab) 650 mg PO Q6 PRN PRN Reason: Pain, moderate (4-7) Amlodipine Besylate (Norvasc) 10 mg PO DAILY [facility] Last Admin: 01/13/19 10:10 Dose: 10 mg Aspirin (Aspirin) 325 mg PO DAILY [facility] Last Admin: 01/13/19 10:10 Dose: 325 mg Calcitriol (Rocaltrol) 1 mcg PO DAILY [facility] Last Admin: 01/13/19 10:10 Dose: 1 mcg Calcium Acetate (Phoslo) 667 mg PO TIDCC [facility] Last Admin: 01/13/19 08:07 Dose: 667 mg Clonidine HCl (Catapres) 0.2 mg PO DAILY [facility] Last Admin: 01/13/19 10:10 Dose: 0.2 mg Heparin Sodium (Porcine) (Heparin) 5,000 units SC Q12 [facility] Last Admin: 01/13/19 10:09 Dose: Not Given Losartan Potassium (Cozaar) 50 mg PO DAILY [facility] Last Admin: 01/13/19 10:10 Dose: 50 mg Pneumococcal Polyvalent Vaccine (Pneumovax 23 Vaccine) 0.5 ml IM .ONCE ONE Stop: 01/14/19 10:01 Rosuvastatin Calcium (Crestor) 5 mg PO HS [facility] Last Admin: 01/12/19 21:15 Dose: 5 mg Vitamin B Complex/Vit C/Folic Acid (Nephro-Edi) 1 tab PO 0800 [facility] Last Admin: 01/13/19 08:07 Dose: 1 tab Physical Exam - Constitutional Appears: No Acute Distress, Chronically Ill - Head Exam Head Exam: ATRAUMATIC, NORMAL INSPECTION - Eye Exam Eye Exam: EOMI, Normal appearance - Respiratory Exam Respiratory Exam: Clear to Auscultation Bilateral, NORMAL BREATHING PATTERN - Cardiovascular Exam Cardiovascular Exam: REGULAR RHYTHM, +S1 - GI/Abdominal Exam GI & Abdominal Exam: Soft. absent: Tenderness - Extremities Exam Extremities exam: Positive for: normal inspection. Negative for: tenderness - Neurological Exam Neurological exam: Alert, CN II-XII Intact - Skin Skin Exam: Dry, Warm Results - Vital Signs Recent Vital Signs: Last Vital Signs Temp 98 F 01/12/19 23:30 Pulse 74 01/13/19 07:26 Resp 20 01/12/19 23:30 BP 117/76 01/12/19 23:30 Pulse Ox 96 01/13/19 03:00 - Labs Result Diagrams: 01/12/19 05:55 01/12/19 05:55 Assessment & Plan (1) Hypertensive chronic kidney disease with stage 5 chronic kidney disease or end stage renal disease Status: Acute (2) Bipolar 1 disorder Status: Acute (3) CHF (congestive heart failure) Status: Acute (4) CHF (congestive heart failure) Status: Acute (5) ESRD (end stage renal disease) Status: Acute (6) Phencyclidine (PCP) use disorder, moderate Status: Acute - Assessment and Plan (Free Text) Plan: Dialysis now and MWF Will need need HD placement BP management recommend psych eval
--- NOTE | 2019-01-13 11:49 | CP.PCM.PN ---
Subjective - Date & Time of Evaluation Date of Evaluation: 01/13/19 Time of Evaluation: 11:48 - Subjective Subjective: NO SP. COMPLAINTS VS STABLE P/E NO CHANGE CONT DIALYSIS Objective - Vital Signs/Intake and Output Vital Signs (last 24 hours): Temp Pulse Resp BP Pulse Ox 98 F 74 20 117/76 96 01/12/19 23:30 01/13/19 07:26 01/12/19 23:30 01/12/19 23:30 01/13/19 03:00 Intake and Output: 01/12/19 01/13/19 23:59 11:59 Intake Total 350 350 Balance 350 350 - Medications Medications: Current Medications Acetaminophen (Tylenol 325mg Tab) 650 mg PO Q6 PRN PRN Reason: Pain, moderate (4-7) Amlodipine Besylate (Norvasc) 10 mg PO DAILY COUNT [facility]CLUD[facility] Last Admin: 01/13/19 10:10 Dose: 10 mg Aspirin (Aspirin) 325 mg PO DAILY COUNT INCLUDES [facility] Last Admin: 01/13/19 10:10 Dose: 325 mg Calcitriol (Rocaltrol) 1 mcg PO DAILY COUNT INCLUDES THE [facility] Last Admin: 01/13/19 10:10 Dose: 1 mcg Calcium Acetate (Phoslo) 667 mg PO TIDCC COUNT INCLUDES THE [facility] Last Admin: 01/13/19 08:07 Dose: 667 mg Clonidine HCl (Catapres) 0.1 mg PO BID COUNT INCLUDES THE [facility] Heparin Sodium (Porcine) (Heparin) 5,000 units SC Q12 COUNT INCLUDES THE [facility] Last Admin: 01/13/19 10:09 Dose: Not Given Losartan Potassium (Cozaar) 50 mg PO DAILY COUNT INCLUDES [facility] Last Admin: 01/13/19 10:10 Dose: 50 mg Pneumococcal Polyvalent Vaccine (Pneumovax 23 Vaccine) 0.5 ml IM .ONCE ONE Stop: 01/14/19 10:01 Rosuvastatin Calcium (Crestor) 5 mg PO HS COUNT INCLUDES THE [facility] Last Admin: 01/12/19 21:15 Dose: 5 mg Vitamin B Complex/Vit C/Folic Acid (Nephro-Edi) 1 tab PO 0800 COUNT INCLUDES THE [facility] Last Admin: 01/13/19 08:07 Dose: 1 tab - Labs Labs: 01/12/19 05:55 01/12/19 05:55 PT 14.0 SECONDS (9.7-12.2) H 01/12/19 05:55 INR 1.3 01/12/19 05:55 APTT 32 SECONDS (21-34) 01/12/19 05:55 Assessment and Plan (1) ESRD needing dialysis Status: Acute
--- NOTE | 2019-01-13 15:16 | CARD ---
APPROVED REPORT Date of service: 01/12/2019 EKG Measurement Heart [id number] <Conclusion> Normal sinus rhythm T wave abnormality, consider lateral ischemia Abnormal ECG
[2019-01-13 15:31] LABS: ALB/GLOB RATIO 1.4 (1.0-2.1); ALBUMIN 3.7 g/dL (3.5-5.0); CALCIUM 7.7 mg/dl (8.6-10.4)
[2019-01-13 17:03] VITALS: BP 111/73; PULSE 72; TEMP 97.3; O2SAT 100
--- NOTE | 2019-01-13 18:36 | CP.PCM.PCO ---
Physician Communication Note - Physician Communication Note Physician Communication Note: Patient signed out AMA. Risks of signing out were explained. Pt AOx3.
[2019-01-14] MEDS ORDERED: Pneumococcal 23-Valent Vaccine IM ONE (10:00)
== END 2019-01-13 18:36 | disposition left against medical advice (07) ==
LOC: C.ER 05:13 → C.6T 06:34 → UNDOADMOB 06:34 → C.6T 13:32 → OBSVTOIN 01-13 12:23 → INTOOBSV 01-13 12:23 → UNDODISIN 01-13 18:36
PROVIDERS: ADMIT Internal Medicine Cardiovascular Disease; ATTEND Internal Medicine Cardiovascular Disease
DX: I13.2 Hypertensive heart and chronic kidney disease with heart failure and with stage 5 chronic kidney disease, or end stage renal disease (principal); N18.6 End stage renal disease; I50.9 Heart failure, unspecified; F31.9 Bipolar disorder, unspecified; J45.909 Unspecified asthma, uncomplicated; F16.10 Hallucinogen abuse, uncomplicated; E78.00 Pure hypercholesterolemia, unspecified; Z91.15 Patient's noncompliance with renal dialysis; Z87.891 Personal history of nicotine dependence; Z91.14 Patient's other noncompliance with medication regimen; Z99.2 Dependence on renal dialysis
CPT/HCPCS: 36415; 71045; 80053; 83690; 83880; 83970; 84100; 84484; 85025; 85610; 85730; 87340; 93005; 99285; G0257; G0378

== ENCOUNTER 2019-01-19 22:47 | Inpatient (IN) | payer MEDICAID ==
[2019-01-19 22:47] VITALS: BMI 46.3
[2019-01-19 23:29] LABS: BASO # 0.1 K/uL (0.0-0.2); BASO % 1.1 % (0.0-2.0); EOS # 0.3 K/uL (0.0-0.7); LYMPH # 1.1 K/uL (1.0-4.3); LYMPH % 11.5 % (20.0-40.0); MEAN CELL VOLUME 89.4 fL (80.0-94.0); MEAN CORPUSCULAR HEMOGLOBIN 30.1 pg (27.0-31.0); MEAN CORPUSCULAR HGB CONC 33.6 g/dL (33.0-37.0); MEAN PLATELET VOLUME 9.3 fL (7.2-11.7); MONO # 0.8 K/uL (0.0-0.8); MONO % 8.8 % (0.0-10.0); NEUT # 7.3 K/uL (1.8-7.0); NEUT % 75.6 % (50.0-75.0); RBC 2.65 Mil/uL (4.40-5.90); RED CELL DISTRIBUTION WIDTH 14.8 % (11.5-14.5); WHITE BLOOD COUNT 9.6 K/uL (4.8-10.8)
[2019-01-19 23:57] LABS: ALB/GLOB RATIO 1.4 (1.0-2.1); ALBUMIN 4.2 g/dL (3.5-5.0); ALT/SGPT 7 U/L (21-72); AST/SGOT 13 U/L (17-59); B-TYPE NATRIURETIC PEPTIDE > 35000 pg/mL (0-450); BLOOD UREA NITROGEN 120 mg/dL (9-20); CALCIUM 7.5 mg/dl (8.6-10.4); GFR NON-AFRICAN AMERICAN 3
--- NOTE | 2019-01-20 00:35 | C.PDOC ---
History Of Present Illness 28 year old male with Hx of ESRD secondary to HTN on dialysis presents stating all day today when he walks he feels SOB associated with some chest pain. Patient is suppose to get dialysis m/w/f through his right chest port but has n ot been dialyzed since 01/10/19 when he was admitted for dialysis noncompliance. Patient also reports he is suppose to be on HTN medications but has not been taking them, his last dose was while he was admitted, he is unsure of what medications he is suppose to take. Denies any other symptoms. Time Seen by Provider: 01/19/19 23:05 Chief Complaint (Nursing): Shortness Of Breath History Per: Patient History/Exam Limitations: no limitations Onset/Duration Of Symptoms: Hrs Current Symptoms Are (Timing): Still Present Current Respiratory Medications: See Home Med List Associated Symptoms: Chest Pain. denies: Fever, Dizziness Recent travel outside of the [place]: No Past Medical History Reviewed: Historical Data, Nursing Documentation, Vital Signs Vital Signs: Last Vital Signs Temp 98.5 F 01/19/19 22:55 Pulse 105 H 01/20/19 00:03 Resp 30 H 01/20/19 00:03 BP 181/118 H 01/20/19 00:03 Pulse Ox 91 L 01/20/19 00:03 - Medical History PMH: Asthma, HTN, Hypercholesterolemia, End Stage Renal Disease (on dialysis M-W-) Denies: Chronic Kidney Disease - [facility] Procedures (07/28/18) BYPASS L RADIAL ART TO LOW ARM VEIN W AUTOL VN, OPEN (07/28/18) CLOSURE SKIN & SUBCUTANEOUS NEC (11/25/01) Family History: States: Unknown Family Hx - Social History Hx Tobacco Use: Yes Hx Alcohol Use: Yes Hx Substance Use: Yes - Immunization History Hx Tetanus Toxoid Vaccination: Yes Hx Influenza Vaccination: No Hx Pneumococcal Vaccination: No Review Of Systems Constitutional: Negative for: Fever, Chills Eyes: Negative for: Vision Change Cardiovascular: Positive for: Chest Pain Respiratory: Positive for: Shortness of Breath Gastrointestinal: Negative for: Nausea, Vomiting Musculoskeletal: Negative for: Back Pain Skin: Negative for: Rash Neurological: Negative for: Weakness, Numbness Physical Exam - Physical Exam Appears: Non-toxic, Other (Obese) Skin: Normal Color, Warm Head: Atraumatic, Normacephalic Eye(s): bilateral: Normal Inspection Oral Mucosa: Moist Neck: Normal, Supple Chest: Other (Port to right chest) Cardiovascular: Rhythm Regular (Tachycardic) Respiratory: Decreased Breath Sounds (Bilateral bases), No Rales, No Rhonchi, No Wheezing Gastrointestinal/Abdominal: Soft, No Tenderness Extremity: No Pedal Edema Neurological/Psych: Oriented x3, Normal Speech ED Course And Treatment - Laboratory Results Result Diagrams: 01/20/19 04:28 01/19/19 23:05 Lab Results: Troponin I 0.0410 ng/mL (0.00-0.120) 01/19/19 23:05 NT-Pro-B Natriuret Pep > 94287 pg/mL (0-450) H 01/19/19 23:05 Total Bilirubin 0.9 mg/dL (0.2-1.3) 01/19/19 23:05 AST 13 U/L (17-59) L 01/19/19 23:05 ALT 7 U/L (21-72) L D 01/19/19 23:05 Alkaline Phosphatase 71 U/L (38-126) 01/19/19 23:05 Total Protein 7.3 g/dL (6.3-8.3) 01/19/19 23:05 Albumin 4.2 g/dL (3.5-5.0) 01/19/19 23:05 Globulin 3.0 gm/dL (2.2-3.9) 01/19/19 23:05 Albumin/Globulin Ratio 1.4 (1.0-2.1) 01/19/19 23:05 ECG: Interpreted By Me, Viewed By Me ECG Rhythm: Sinus Tachycardia ECG Interpretation: Normal Interpretation Of ECG: Normal axis, normal intervals, no ST elevation Rate From EC O2 Sat by Pulse Oximetry: 91 (Room air) Pulse Ox Interpretation: Abnormal - Radiology CXR: Interpreted by Me CXR Interpretation: Yes: Other (Vascular congestion and patchy opacities bilaterally, R > L) Medical Decision Making Medical Decision Making: Plan: * CXR * Blood work * EKG Patient placed on 2L O2 for dyspnea. Labs and CXR done showing fluid overload from noncompliance with dialysis. Patient remained hypertensive with SBP 180's- 220's. Labetalol 20mg ivp given with improvement of BP to 170's systolic. Patient began to desaturate to the mid 80's, so O2 increased to 5L with some improvement. 0200- Case discussed with patient's data communications software consultant Dr. Butler who states that he will consult in the AM, no need for emergent dialysis at this time. Case discussed with Dr. Childs, covering for ICU, who accepts patient to the unit. ICU admission for hypertensive urgency, dyspnea with hypoxia, and uremia. Case discussed with Dr. Mendenhall who has admitted the patient during his last three visits, however he states that the patient can be admitted to the service. Case discussed with medicine bronze plater Dr. Martin Seo who accepts patient to his service. Disposition - Disposition Disposition: HOSPITALIZED Disposition Time: 02:30 Condition: GUARDED - Clinical Impression Clinical Impression: Respiratory distress, Noncompliance with renal dialysis, Hypertensive urgency - Scribe Statement The provider has reviewed the documentation as recorded by the Scribshaun Fontanez All medical record entries made by the Scribe were at my direction and personally dictated by me. I have reviewed the chart and agree that the record accurately reflects my personal performance of the history, physical exam, [facility] decision making, and the department course for this patient. I have also personally directed, reviewed, and agree with the discharge instructions and disposition.
[2019-01-20] MEDS ORDERED: Albuterol-Ipratrop 3 mg / 0.5 (3 ml) UD INH STA (01:20)
[2019-01-20] MEDS ORDERED: Albuterol-Ipratrop 3 mg / 0.5 (3 ml) UD ONE (01:20)
[2019-01-20] MEDS ORDERED: Labetalol 25mg/5ml Syringe IVP STA (02:13)
[2019-01-20] MEDS ORDERED: Labetalol 5mg/ml (4ml) ONE (02:19)
--- NOTE | 2019-01-20 03:05 | CP.PCM.CON ---
History of Present Illness - History of Present Illness History of Present Illness: 28 year old male with a past medical history of esrd (MWF), hyperlipidemia, and hypertension presents to the hospital after reporting being short of breath for the past day. Patient states he feels short of breath while walking. Patient reports normally being able to walk a couple of blocks, but now has to stop after one block to catch his breath. Patient has well documented non-compliance with his hemodialysis in the past. Per chart review, last hemodialysis was January 10. Patient subsequently signed out AMA on January 13. The patient reports chest pain in conjunction with the shortness of breath. Patient reports its located mid sternally with no radiation. Patient rates the pain a 8/10 in severity. He denies taking anything for the pain. Patient does admit to using PCP prior to coming into the hospital. Patient denies any nausea, vomiting, dizziness, changes in vision, fevers, chills, headaches, or any other complain ts. PMD: None Nepho: None, However per Chart review been seen by Dr. Weinstein and Dr. Butler Medical history: esrd, hld, hypertension Allergies: FISH Medications: Denies. Restarted medications from last visit December 2018. Surgeries: Permacath Social: Lives with friends in [place]. Patient currently unemployed. Current user of PCP. Denies any alcohol use. Zac smoking. Review of Systems - Constitutional Constitutional: absent: Chills, Daytime Sleepiness, Fatigue, Night Sweats, Snoring - EENT Eyes: absent: Change in Vision, Decreased Night Vision, Pain, Spots in Vision, Tunnel Vision Ears: absent: Ear Discharge, Ear Pain Nose/Mouth/Throat: absent: Nasal Congestion, Nasal Discharge, Sinus Pressure, Bleeding Gums, Neck Pain, Neck Mass - Cardiovascular Cardiovascular: Chest Pain, Dyspnea on Exertion. absent: Edema, Irregular Heart Rhythm, Pain Radiating to Arm/Neck/Jaw, Lightheadedness, Palpitations, Paroxysmal Nocturnal Dyspnea, Pedal Edema, Syncope - Gastrointestinal Gastrointestinal: absent: Abdominal Pain, Belching, Dyspepsia, Dysphagia, Loose Stools - Genitourinary Genitourinary: absent: Difficulty Urinating, Dysuria, Hematuria - Musculoskeletal Musculoskeletal: absent: Arthralgias, Myalgias - Integumentary Integumentary: absent: Change in Nails, Rash, Skin Ulcer, Sores - Neurological Neurological: absent: Abnormal Movements, Numbness, Syncope, Tremor, Vertigo, Weakness - Endocrine Endocrine: absent: Palpitations, Polydipsia, Polyphagia - Hematologic/Lymphatic Hematologic: absent: Easy Bleeding, Easy Bruising Past Patient History - Infectious Disease Hx of Infectious Diseases: None - Tetanus Immunizations Tetanus Immunization: Unknown - Past Medical History & Family History Past Medical History?: Yes - Past Social History Smoking Status: Current Some Days Smoker - CARDIAC Hx Hypercholesterolemia: Yes Hx Hypertension: Yes - PULMONARY Hx Asthma: Yes - NEUROLOGICAL Hx Neurological Disorder: No - HEENT Hx HEENT Problems: No - RENAL Hx Chronic Kidney Disease: No - ENDOCRINE/METABOLIC Hx Endocrine Disorders: No - HEMATOLOGICAL/ONCOLOGICAL Hx Blood Disorders: No - INTEGUMENTARY Hx Dermatological Problems: No - MUSCULOSKELETAL/RHEUMATOLOGICAL Hx Falls: No - GASTROINTESTINAL Hx Gastrointestinal Disorders: No - GENITOURINARY/GYNECOLOGICAL Hx Genitourinary Disorders: No - PSYCHIATRIC Hx Substance Use: Yes - SURGICAL HISTORY Hx Surgeries: No Other/Comment: LEFT HEAD SURGERY DUE TO INJURY - ANESTHESIA Hx Anesthesia: No Meds Allergies/Adverse Reactions: Allergies Allergy/AdvReac Type Severity Reaction Status Date / Time FISH Allergy REDNESS Verified 09/03/18 07:56 - Medications Medications: Current Medications Amlodipine Besylate (Norvasc) 10 mg PO DAILY [facility] Calcitriol (Rocaltrol) 1 mcg PO DAILY [facility] Calcium Acetate (Phoslo) 667 mg PO TIDCC [facility] Clonidine HCl (Catapres) 0.1 mg PO BID [facility] Losartan Potassium (Cozaar) 50 mg PO DAILY [facility] Rosuvastatin Calcium (Crestor) 5 mg PO HS [facility] Vitamin B Complex/Vit C/Folic Acid (Nephro-Edi) 1 tab PO 0800 [facility] Physical Exam - Head Exam Head Exam: ATRAUMATIC, NORMOCEPHALIC - Eye Exam Eye Exam: EOMI, Normal appearance. absent: Nystagmus, Periorbital swelling Pupil Exam: NORMAL ACCOMODATION, PERRL - ENT Exam ENT Exam: Mucous Membranes Moist, Normal Exam. absent: Normal External Ear Exam - Neck Exam Neck exam: Positive for: Normal Inspection. Negative for: Meningismus - Respiratory Exam Respiratory Exam: Rales (Limited by body habitus), NORMAL BREATHING PATTERN - Cardiovascular Exam Cardiovascular Exam: REGULAR RHYTHM, +S1, +S2. absent: JVD, +S4 - GI/Abdominal Exam GI & Abdominal Exam: Normal Bowel Sounds. absent: Guarding, Organomegaly, Pulsatile Mass - Extremities Exam Extremities exam: Positive for: normal inspection. Negative for: calf tenderness, joint swelling, normal capillary refill - Neurological Exam Neurological exam: CN II-XII Intact, Oriented x3 - Psychiatric Exam Psychiatric exam: Agitated, Normal Affect - Skin Skin Exam: Dry, Intact, Normal Color, Warm Results - Vital Signs Recent Vital Signs: Last Vital Signs Temp 98.5 F 01/19/19 22:55 Pulse 84 01/20/19 02:27 Resp 15 01/20/19 02:27 BP 160/88 H 01/20/19 02:27 Pulse Ox 97 01/20/19 02:27 - Labs Result Diagrams: 01/20/19 04:28 01/19/19 23:05 Labs: Laboratory Results - last 24 hr 01/19/19 01/19/19 23:05 23:05 WBC 9.6 RBC 2.65 L Hgb 8.0 L Hct 23.7 L MCV 89.4 D MCH 30.1 MCHC 33.6 RDW 14.8 H Plt Count 240 MPV 9.3 Neut % (Auto) 75.6 H Lymph % (Auto) 11.5 L Bartholomew % (Auto) 8.8 Eos % (Auto) 3.0 Baso % (Auto) 1.1 Neut # (Auto) 7.3 H Lymph # (Auto) 1.1 Bartholomew # (Auto) 0.8 Eos # (Auto) 0.3 Baso # (Auto) 0.1 Sodium 140 Potassium 5.8 H Chloride 101 Carbon Dioxide 18 L Anion Gap 26 H BUN 120 H* D Creatinine 21.8 H* D Est GFR ( Amer) 3 Est GFR (Non-Af Amer) 3 Random Glucose 88 Calcium 7.5 L Phosphorus 10.2 H Magnesium 2.0 Total Bilirubin 0.9 AST 13 L ALT 7 L D Alkaline Phosphatase 71 Troponin I 0.0410 NT-Pro-B Natriuret Pep > 27766 H Total Protein 7.3 Albumin 4.2 Globulin 3.0 Albumin/Globulin Ratio 1.4 Assessment & Plan - Assessment and Plan (Free Text) Assessment: 28 year old male with a past medical history of esrd (MWF), hyperlipidemia, and hypertension presents to the hospital after reporting being shot of breath for the past day. Plan: Dyspnea -CXR: mild venous congestion, pathcy interstitial markings at left lung base w/ possible small pleural effusion -BNP:35,000 -Likely secondary to non-compliance with dialysis sessions. -ABG ordered. Will f/u with results. -Patient on Non-rebreather mask. ESRD -BUN/Cr 120/21.8 -Patient last HD session January 10. Patient subsequently signed out AMA January 13. -HD MWF -Patient has well documented history of non-compliance with dialysis sessions. -Nephrology Dr. Butler consulted--> Help appreciated Medications: Phoslo 667mg PO TID CC [facility] Calcitriol 1mcg po daily vinh Nephro-Edi 1 tab PO 0800 [facility] Chest pain -EKG on admission: Sinus tachycardia @104 bpm, No ST-T changes -Troponin (-)x1. Trend troponins -Lipid panel ordered .Will f/u with results. -Hemoglobin A1C ordered .Will f/u with results. Anemia H/H : 8/23.7 on admission. Chart review baseline 9 Iron studies ordered. Will f/u with results. Hypertension -Restart Cozaar 50mg PO Daily -Restart Clonidine .1mg PO BID [facility] -Restrat Norvasc 10mg PO Daily Hyperlipidemia -Rosuvastatin 5mg PO HS [facility] PPX -Pepcid -SCD's Plan discussed with Attending Dr. Jonny Childs. Reji Zazueta, PGY-2
[2019-01-20 04:29] LABS: HEMOGLOBIN 7.1 g/dL (12.0-18.0); RBC 2.48 Mil/uL (4.40-5.90); WHITE BLOOD COUNT 9.9 K/uL (4.8-10.8)
[2019-01-20 04:30] LABS: BASO % 0.7 % (0.0-2.0); EOS % 3.2 % (0.0-4.0); LYMPH # 1.3 K/uL (1.0-4.3); LYMPH % 13.3 % (20.0-40.0); MEAN CELL VOLUME 89.7 fL (80.0-94.0); MEAN CORPUSCULAR HEMOGLOBIN 28.8 pg (27.0-31.0); MEAN PLATELET VOLUME 9.3 fL (7.2-11.7); MONO % 9.8 % (0.0-10.0); NEUT # 7.2 K/uL (1.8-7.0); RED CELL DISTRIBUTION WIDTH 15.1 % (11.5-14.5)
[2019-01-20 04:30] LABS: IRON 47 ug/dL (49-181)
[2019-01-20 04:31] LABS: BASO # 0.1 K/uL (0.0-0.2); EOS # 0.3 K/uL (0.0-0.7)
[2019-01-20 04:39] LABS: % IRON SATURATION 25 (20-55); TOTAL IRON BINDING CAPACITY 187 ug/dL (250-450)
[2019-01-20 07:46] LABS: ALB/GLOB RATIO 1.4 (1.0-2.1); ALBUMIN 3.9 g/dL (3.5-5.0); CALCIUM 7.1 mg/dl (8.6-10.4)
[2019-01-20] MEDS: Multivitamin Vitamin B Complex (Nephro-Vite) Tab PO SCH (08:40)
[2019-01-20 09:02] LABS: CK-MB 1.56 ng/mL (0.0-3.38); TROPONIN I 0.04 ng/mL (0.00-0.120)
--- NOTE | 2019-01-20 09:20 | RAD ---
Date of service: 01/20/2019 HISTORY: dyspnea COMPARISON: 01/12/2019. FINDINGS: Right-sided dialysis catheter terminates at the cavoatrial junction. LUNGS: The lungs are well inflated. There is worsening pulmonary venous congestion and interval development of pulmonary edema, worse in the right perihilar region. PLEURA: No pleural effusions or pneumothorax. CARDIOVASCULAR: Persistent moderate cardiomegaly. No aortic atherosclerotic calcifications present. OSSEOUS STRUCTURES: Within normal limits for the patient's age. VISUALIZED UPPER ABDOMEN: Normal. OTHER FINDINGS: None. IMPRESSION: Worsening pulmonary venous congestion and interval development of pulmonary edema, worse in the right perihilar region.
[2019-01-20] MEDS: Calcitriol 1 mcg/ml Oral Soln (15 ml) PO SCH ×3 (09:25→12:07)
[2019-01-20] MEDS ORDERED: EPOETIN ALFA 10,000 UNIT/ML ML IV SCH (11:00)
--- NOTE | 2019-01-20 11:01 | CARD ---
APPROVED REPORT Date of service: 01/19/2019 EKG Measurement Heart [id number] <Conclusion> Sinus tachycardia Cannot rule out Anterior infarct, age undetermined Abnormal ECG
--- NOTE | 2019-01-20 12:32 | CP.PCM.CON ---
History of Present Illness - History of Present Illness History of Present Illness: 28 year old male with a past medical history of esrd (MWF), hyperlipidemia, and hypertension presents to the hospital after reporting being short of breath for the past day. Patient states he feels short of breath while walking. Patient reports normally being able to walk a couple of blocks, but now has to stop after one block to catch his breath. Patient has well documented non-compliance with his hemodialysis in the past. Per chart review, last hemodialysis was January 10. Patient subsequently signed out AMA on January 13. The patient reports chest pain in conjunction with the shortness of breath. Patient reports its located mid sternally with no radiation. Patient rates the pain a 8/10 in severity. He denies taking anything for the pain. Patient does admit to using PCP prior to coming into the hospital. Patient denies any nausea, vomiting, dizziness, changes in vision, fevers, chills, headaches, or any other complai nts. CXR with CHF K-6.0 PMD: None Nepho: None, However per Chart review been seen by Dr. Weinstein and Dr. Butler for dialysis requirements Unable to obtain outpatient spot due to his behavior- noncompliance Medical history: esrd, hld, hypertension, multi substance abuse Allergies: FISH Medications: Denies. Restarted medications from last visit December 2018. Surgeries: Permacath Social: Lives with friends in [place]. Patient currently unemployed. Current user of PCP. Denies any alcohol use. Zac smoking. Review of Systems - Constitutional Constitutional: Daytime Sleepiness, Lethargy - EENT Eyes: absent: As Per HPI, Blind Spots, Blurred Vision, Change in Vision, Decreased Night Vision, Diplopia, Discharge, Dry Eye, Exophthalmos, Floaters, Irritation, Itchy Eyes, Loss of Peripheral Vision, Pain, Photophobia, Requires Corrective Lenses, Sees Flashes, Spots in Vision, Tunnel Vision, Other Visual Disturbances, Loss of Vision, Other Ears: absent: As Per HPI, Decreased Hearing, Ear Discharge, Ear Pain, Tinnitus, Abnormal Hearing, Disequilibrium, Dizziness, Other Nose/Mouth/Throat: absent: As Per HPI, Epistaxis, Nasal Congestion, Nasal Discharge, Nasal Obstruction, Nasal Trauma, Nose Pain, Post Nasal Drip, Sinus Pain, Sinus Pressure, Bleeding Gums, Change in Voice, Dental Pain, Dry Mouth, Dysphagia, Halitosis, Hoarsness, Lip Swelling, Mouth Lesions, Mouth Pain, Odynophagia, Sore Throat, Throat Swelling, Tongue Swelling, Facial Pain, Neck Pain, Neck Mass, Other - Cardiovascular Cardiovascular: Dyspnea on Exertion, Pedal Edema - Respiratory Respiratory: Cough, Dyspnea on Exertion - Gastrointestinal Gastrointestinal: Nausea - Genitourinary Genitourinary: As Per HPI - Musculoskeletal Musculoskeletal: Muscle Cramps, Muscle Weakness - Neurological Neurological: Weakness Past Patient History - Infectious Disease Hx of Infectious Diseases: None - Tetanus Immunizations Tetanus Immunization: Unknown - Past Medical History & Family History Past Medical History?: Yes - Past Social History Smoking Status: Current Some Days Smoker Chewing Tobacco Use: No Cigar Use: No Alcohol: Occasional Drugs: Other - CARDIAC Hx Hypercholesterolemia: Yes Hx Hypertension: Yes - PULMONARY Hx Asthma: Yes - NEUROLOGICAL Hx Neurological Disorder: No - HEENT Hx HEENT Problems: No - RENAL Hx Chronic Kidney Disease: No - ENDOCRINE/METABOLIC Hx Endocrine Disorders: No - HEMATOLOGICAL/ONCOLOGICAL Hx Blood Disorders: No - INTEGUMENTARY Hx Dermatological Problems: No - MUSCULOSKELETAL/RHEUMATOLOGICAL Hx Falls: No - GASTROINTESTINAL Hx Gastrointestinal Disorders: No - GENITOURINARY/GYNECOLOGICAL Hx Genitourinary Disorders: No - PSYCHIATRIC Hx Substance Use: Yes - SURGICAL HISTORY Hx Surgeries: No Other/Comment: LEFT HEAD SURGERY DUE TO INJURY - ANESTHESIA Hx Anesthesia: No Meds Allergies/Adverse Reactions: Allergies Allergy/AdvReac Type Severity Reaction Status Date / Time FISH Allergy REDNESS Verified 09/03/18 07:56 - Medications Medications: Current Medications Amlodipine Besylate (Norvasc) 10 mg PO DAILY [facility] Last Admin: 01/20/19 12:11 Dose: 10 mg Calcitriol (Rocaltrol) 1 mcg PO DAILY [facility] Last Admin: 01/20/19 12:07 Dose: 1 mcg Calcium Acetate (Phoslo) 667 mg PO TIDCC [facility] Last Admin: 01/20/19 12:11 Dose: 667 mg Clonidine HCl (Catapres) 0.1 mg PO BID [facility] Last Admin: 01/20/19 12:10 Dose: 0.1 mg Epoetin Ovi (Procrit) 10,000 unit IV MWF [facility] Last Admin: 01/20/19 11:30 Dose: 10,000 unit Famotidine (Pepcid) 20 mg PO DAILY [facility] Last Admin: 01/20/19 09:08 Dose: 20 mg Losartan Potassium (Cozaar) 50 mg PO DAILY [facility] Last Admin: 01/20/19 12:12 Dose: 50 mg Pneumococcal Polyvalent Vaccine (Pneumovax 23 Vaccine) 0.5 ml IM .ONCE ONE Stop: 01/22/19 10:01 Rosuvastatin Calcium (Crestor) 5 mg PO [facility] Vitamin B Complex/Vit C/Folic Acid (Nephro-Edi) 1 tab PO 0800 [facility] Last Admin: 01/20/19 08:40 Dose: 1 tab Physical Exam - Head Exam Head Exam: ATRAUMATIC, NORMAL INSPECTION - Eye Exam Eye Exam: EOMI, Normal appearance - Neck Exam Neck exam: Positive for: Normal Inspection. Negative for: Tenderness - Respiratory Exam Respiratory Exam: Rhonchi, Respiratory Distress - Cardiovascular Exam Cardiovascular Exam: REGULAR RHYTHM, +S1 - GI/Abdominal Exam GI & Abdominal Exam: Soft. absent: Tenderness - Extremities Exam Extremities exam: Positive for: pedal edema. Negative for: tenderness - Neurological Exam Neurological exam: CN II-XII Intact - Skin Skin Exam: Dry, Warm Results - Vital Signs Recent Vital Signs: Last Vital Signs Temp 98 F 01/20/19 09:50 Pulse 94 H 01/20/19 12:00 Resp 34 H 01/20/19 12:00 BP 176/101 H 01/20/19 12:00 Pulse Ox 98 01/20/19 12:00 - Labs Result Diagrams: 01/20/19 04:28 01/20/19 04:09 Labs: Laboratory Results - last 24 hr 01/19/19 01/19/19 01/20/19 23:05 23:05 04:09 WBC 9.6 Cancelled RBC 2.65 L Cancelled Hgb 8.0 L Cancelled Hct 23.7 L Cancelled MCV 89.4 D Cancelled MCH 30.1 Cancelled MCHC 33.6 Cancelled RDW 14.8 H Cancelled Plt Count 240 Cancelled MPV 9.3 Cancelled Neut % (Auto) 75.6 H Cancelled Lymph % (Auto) 11.5 L Cancelled [place] % (Auto) 8.8 Cancelled Eos % (Auto) 3.0 Cancelled Baso % (Auto) 1.1 Cancelled Neut # (Auto) 7.3 H Lymph # (Auto) 1.1 Cancelled [place] # (Auto) 0.8 Cancelled Eos # (Auto) 0.3 Cancelled Baso # (Auto) 0.1 Cancelled Absolute Neuts (auto) Cancelled Retic Count Haptoglobin Sodium 140 Potassium 5.8 H Chloride 101 Carbon Dioxide 18 L Anion Gap 26 H BUN 120 H* D Creatinine 21.8 H* D Est GFR ( Amer) 3 Est GFR (Non-Af Amer) 3 Random Glucose 88 Hemoglobin A1c Calcium 7.5 L Phosphorus 10.2 H Magnesium 2.0 Iron TIBC % Saturation Ferritin Total Bilirubin 0.9 AST 13 L ALT 7 L D Alkaline Phosphatase 71 Lactate Dehydrogenase Total Creatine Kinase CK-MB (Mass) Troponin I 0.0410 NT-Pro-B Natriuret Pep > 25214 H Total Protein 7.3 Albumin 4.2 Globulin 3.0 Albumin/Globulin Ratio 1.4 Triglycerides Cholesterol LDL Cholesterol Direct HDL Cholesterol Blood Type Antibody Screen 01/20/19 01/20/19 01/20/19 04:09 04:09 04:09 WBC RBC Hgb Hct MCV MCH MCHC RDW Plt Count MPV Neut % (Auto) Lymph % (Auto) [place] % (Auto) Eos % (Auto) Baso % (Auto) Neut # (Auto) Lymph # (Auto) [place] # (Auto) Eos # (Auto) Baso # (Auto) Absolute Neuts (auto) Retic Count Haptoglobin Sodium 140 Potassium 6.0 H Chloride 103 Carbon Dioxide 16 L Anion Gap 28 H BUN 125 H* Creatinine 21.5 H* Est GFR ( Amer) 3 Est GFR (Non-Af Amer) 3 Random Glucose 82 Hemoglobin A1c 5.4 Calcium 7.1 L Phosphorus 11.1 H Magnesium 1.9 Iron TIBC % Saturation Ferritin 189.0 Total Bilirubin 0.9 AST 62 H D ALT 13 L D Alkaline Phosphatase 55 Lactate Dehydrogenase Total Creatine Kinase CK-MB (Mass) Troponin I NT-Pro-B Natriuret Pep Total Protein 6.7 Albumin 3.9 Globulin 2.8 Albumin/Globulin Ratio 1.4 Triglycerides 173 H D Cholesterol 179 LDL Cholesterol Direct 125 HDL Cholesterol 22 L Blood Type O NEGATIVE Antibody Screen Negative 01/20/19 01/20/19 01/20/19 04:09 04:09 04:28 WBC 9.9 RBC 2.48 L Hgb 7.1 L Hct 22.2 L MCV 89.7 MCH 28.8 MCHC 32.0 L RDW 15.1 H Plt Count 217 MPV 9.3 Neut % (Auto) 73.0 Lymph % (Auto) 13.3 L [place] % (Auto) 9.8 Eos % (Auto) 3.2 Baso % (Auto) 0.7 Neut # (Auto) 7.2 H Lymph # (Auto) 1.3 [place] # (Auto) 1.0 H Eos # (Auto) 0.3 Baso # (Auto) 0.1 Absolute Neuts (auto) Retic Count Haptoglobin 206.8 H Sodium Potassium Chloride Carbon Dioxide Anion Gap BUN Creatinine Est GFR ( Amer) Est GFR (Non-Af Amer) Random Glucose Hemoglobin A1c Calcium Phosphorus Magnesium Iron 47 L TIBC 187 L % Saturation 25 Ferritin Total Bilirubin AST ALT Alkaline Phosphatase Lactate Dehydrogenase Total Creatine Kinase CK-MB (Mass) Troponin I NT-Pro-B Natriuret Pep Total Protein Albumin Globulin Albumin/Globulin Ratio Triglycerides Cholesterol LDL Cholesterol Direct HDL Cholesterol Blood Type Antibody Screen 01/20/19 01/20/19 01/20/19 05:41 05:41 08:22 WBC RBC Hgb Hct MCV MCH MCHC RDW Plt Count MPV Neut % (Auto) Lymph % (Auto) [place] % (Auto) Eos % (Auto) Baso % (Auto) Neut # (Auto) Lymph # (Auto) [place] # (Auto) Eos # (Auto) Baso # (Auto) Absolute Neuts (auto) Retic Count 1.2 Haptoglobin Sodium Potassium Chloride Carbon Dioxide Anion Gap BUN Creatinine Est GFR ( Amer) Est GFR (Non-Af Amer) Random Glucose Hemoglobin A1c Calcium Phosphorus Magnesium Iron TIBC % Saturation Ferritin Total Bilirubin AST ALT Alkaline Phosphatase Lactate Dehydrogenase 760 H Total Creatine Kinase 106 CK-MB (Mass) 1.56 Troponin I 0.0400 NT-Pro-B Natriuret Pep Total Protein Albumin Globulin Albumin/Globulin Ratio Triglycerides Cholesterol LDL Cholesterol Direct HDL Cholesterol Blood Type Antibody Screen Assessment & Plan (1) CHF (congestive heart failure) Status: Acute (2) PCP (phencyclidine) abuse Status: Acute (3) Noncompliance with renal dialysis Status: Acute - Assessment and Plan (Free Text) Plan: dialysis with adequate UF HTN control patient threatening to sign out AMA later
[2019-01-20 14:35] LABS: CK-MB 1.58 ng/mL (0.0-3.38); TROPONIN I 0.023 ng/mL (0.00-0.120)
--- NOTE | 2019-01-20 16:13 | CP.CCUPN ---
CCU Subjective - Physician Review Subjective (Free Text): Critical Care Progress Note for Dr. Amor Patient seen and examined at bedside. No acute events overnight. Patient went for HD today, reports feeling better afterwards. Discussed need for compliance with HD/meds. CCU Objective - Vital Signs / Intake & Output Vital Signs (Last 4 hours): Vital Signs Temp Pulse Pulse Resp BP BP Pulse Ox 01/20/19 14:40 104 H 25 H 152/89 H 93 L 01/20/19 14:35 106 H 19 163/103 H 94 L 01/20/19 14:30 110 H 19 159/94 H 92 L 01/20/19 14:25 100 H 44 H 145/82 01/20/19 14:20 101 H 52 H 145/82 92 L 01/20/19 14:15 99 H 46 H 150/70 93 L 01/20/19 14:10 100 H 35 H 136/73 91 L 01/20/19 14:05 100 H 37 H 141/83 92 L 01/20/19 14:00 98 H 48 H 136/82 93 L 01/20/19 13:56 99 H 50 H 150/72 94 L 01/20/19 13:50 98 H 42 H 135/81 94 L 01/20/19 13:46 98 H 36 H 141/78 97 01/20/19 13:41 95 H 34 H 158/77 H 98 01/20/19 13:35 97 H 33 H 154/86 H 96 01/20/19 13:31 97 H 31 H 166/88 H 98 01/20/19 13:30 95 H 34 H 97 01/20/19 13:20 98 F 98 H 28 H 163/93 H 998 H 01/20/19 13:11 97 H 36 H 163/93 H 98 01/20/19 13:00 97 H 18 167/105 H 100 01/20/19 12:51 97 H 38 H 167/105 H 100 01/20/19 12:39 97 H 32 H 170/107 H 100 01/20/19 12:31 98 H 25 H 184/100 H 100 01/20/19 12:30 97 H 19 170/107 H 98 01/20/19 12:10 95 H 38 H 184/109 H 99 Intake and Output (Last 8hrs): Intake & Output 01/20/19 01/20/19 01/20/19 06:59 14:59 22:59 Intake Total 150 260 Output Total 2900 Balance 150 -2640 Weight 251 lb 8.759 oz 111 lb 8 oz Intake: Intake, IV Amount 20 Right Antecubital 20 Oral 150 240 Output: Urine 400 Urine, Voided 400 Stool 0 Emesis 0 Oral Regurgitation 0 Other 2500 Other: Voiding Method Urinal # Voids Urine, Voided 0 # Bowel Movements 0 - Physical Exam Head: Positive for: Atraumatic, Normocephalic Pupils: Positive for: PERRL Extroacular Muscles: Positive for: EOMI Mouth: Positive for: Moist Mucous Membranes Respiratory/Chest: Positive for: Decreased Breath Sounds, Other (nasal canula). Negative for: Respiratory Distress, Accessory Muscle Use, Wheezes Cardiovascular: Positive for: Regular Rate and Rhythm Neurological: Positive for: GCS=15, CN II-XII Intact Skin: Positive for: Dry, Normal Color Psychiatric: Positive for: Alert, Oriented x 3 - Medications Active Medications: Active Medications Generic Name Dose Route Start Last Admin Trade Name Codyq PRN Reason Stop Dose Admin Amlodipine Besylate 10 mg 01/20/19 10:00 01/20/19 12:11 Norvasc PO 10 mg DAILY VINH Administration Calcitriol 1 mcg 01/20/19 10:00 01/20/19 12:07 Rocaltrol PO 1 mcg DAILY VINH Administration Calcium Acetate 667 mg 01/20/19 08:00 01/20/19 12:11 Phoslo PO 667 mg TIDCC VINH Administration Clonidine HCl 0.1 mg 01/20/19 10:00 01/20/19 12:10 Catapres PO 0.1 mg BID VINH Administration Epoetin Ovi 10,000 unit 01/20/19 11:00 01/20/19 11:30 Procrit IV 10,000 unit MWF VINH Administration Famotidine 20 mg 01/20/19 10:00 01/20/19 09:08 Pepcid PO 20 mg DAILY VINH Administration Losartan Potassium 50 mg 01/20/19 10:00 01/20/19 12:12 Cozaar PO 50 mg DAILY VINH Administration Pneumococcal Polyvalent Vaccine 0.5 ml 01/22/19 10:00 Pneumovax 23 Vaccine IM 01/22/19 10:01 .ONCE ONE Rosuvastatin Calcium 5 mg 01/20/19 22:00 Crestor PO HS VINH Vitamin B Complex/Vit C/Folic Acid 1 tab 01/20/19 08:00 01/20/19 08:40 Nephro-Edi PO 1 tab 0800 [facility] Administration - Patient Studies Lab Studies: Lab Studies 01/20/19 01/20/19 01/20/19 Range/Units 14:06 08:22 05:41 WBC (4.8-10.8) K/uL RBC (4.40-5.90) Mil/uL Hgb (12.0-18.0) g/dL Hct (35.0-51.0) % MCV (80.0-94.0) fL MCH (27.0-31.0) pg MCHC (33.0-37.0) g/dL RDW (11.5-14.5) % Plt Count (130-400) K/uL MPV (7.2-11.7) fL Neut % (Auto) (50.0-75.0) % Lymph % (Auto) (20.0-40.0) % Emmet % (Auto) (0.0-10.0) % Eos % (Auto) (0.0-4.0) % Baso % (Auto) (0.0-2.0) % Neut # (Auto) (1.8-7.0) K/uL Lymph # (Auto) (1.0-4.3) K/uL Emmet # (Auto) (0.0-0.8) K/uL Eos # (Auto) (0.0-0.7) K/uL Baso # (Auto) (0.0-0.2) K/uL Absolute Neuts (auto) Retic Count 1.2 (0.5-1.5) % Haptoglobin (30.0-200.0) mg/dL Sodium (132-148) mmol/L Potassium (3.6-5.2) mmol/L Chloride (98-107) mmol/L Carbon Dioxide (22-30) mmol/L Anion Gap (10-20) BUN (9-20) mg/dL Creatinine (0.8-1.5) mg/dL Est GFR ( Amer) Est GFR (Non-Af Amer) Random Glucose (75-110) mg/dL Hemoglobin A1c (4.2-6.5) % Calcium (8.6-10.4) mg/dl Phosphorus (2.5-4.5) mg/dL Magnesium (1.6-2.3) mg/dL Iron (49-181) ug/dL TIBC (250-450) ug/dL % Saturation (20-55) Ferritin ng/mL Total Bilirubin (0.2-1.3) mg/dL AST (17-59) U/L ALT (21-72) U/L Alkaline Phosphatase (38-126) U/L Lactate Dehydrogenase (313-618) U/L Total Creatine Kinase 103 106 (55-170) U/L CK-MB (Mass) 1.58 1.56 (0.0-3.38) ng/mL Troponin I 0.0230 0.0400 (0.00-0.120) ng/mL NT-Pro-B Natriuret Pep (0-450) pg/mL Total Protein (6.3-8.3) g/dL Albumin (3.5-5.0) g/dL Globulin (2.2-3.9) gm/dL Albumin/Globulin Ratio (1.0-2.1) Triglycerides (0-149) mg/dL Cholesterol (0-199) mg/dL LDL Cholesterol Direct (0-129) mg/dL HDL Cholesterol (30-70) mg/dL Blood Type Antibody Screen 01/20/19 01/20/19 01/20/19 Range/Units 05:41 04:28 04:09 WBC 9.9 (4.8-10.8) K/uL RBC 2.48 L (4.40-5.90) Mil/uL Hgb 7.1 L (12.0-18.0) g/dL Hct 22.2 L (35.0-51.0) % MCV 89.7 (80.0-94.0) fL MCH 28.8 (27.0-31.0) pg MCHC 32.0 L (33.0-37.0) g/dL RDW 15.1 H (11.5-14.5) % Plt Count 217 (130-400) K/uL MPV 9.3 (7.2-11.7) fL Neut % (Auto) 73.0 (50.0-75.0) % Lymph % (Auto) 13.3 L (20.0-40.0) % Emmet % (Auto) 9.8 (0.0-10.0) % Eos % (Auto) 3.2 (0.0-4.0) % Baso % (Auto) 0.7 (0.0-2.0) % Neut # (Auto) 7.2 H (1.8-7.0) K/uL Lymph # (Auto) 1.3 (1.0-4.3) K/uL Emmet # (Auto) 1.0 H (0.0-0.8) K/uL Eos # (Auto) 0.3 (0.0-0.7) K/uL Baso # (Auto) 0.1 (0.0-0.2) K/uL Absolute Neuts (auto) Retic Count (0.5-1.5) % Haptoglobin 206.8 H (30.0-200.0) mg/dL Sodium (132-148) mmol/L Potassium (3.6-5.2) mmol/L Chloride (98-107) mmol/L Carbon Dioxide (22-30) mmol/L Anion Gap (10-20) BUN (9-20) mg/dL Creatinine (0.8-1.5) mg/dL Est GFR ( Amer) Est GFR (Non-Af Amer) Random Glucose (75-110) mg/dL Hemoglobin A1c (4.2-6.5) % Calcium (8.6-10.4) mg/dl Phosphorus (2.5-4.5) mg/dL Magnesium (1.6-2.3) mg/dL Iron (49-181) ug/dL TIBC (250-450) ug/dL % Saturation (20-55) Ferritin ng/mL Total Bilirubin (0.2-1.3) mg/dL AST (17-59) U/L ALT (21-72) U/L Alkaline Phosphatase (38-126) U/L Lactate Dehydrogenase 760 H (313-618) U/L Total Creatine Kinase (55-170) U/L CK-MB (Mass) (0.0-3.38) ng/mL Troponin I (0.00-0.120) ng/mL NT-Pro-B Natriuret Pep (0-450) pg/mL Total Protein (6.3-8.3) g/dL Albumin (3.5-5.0) g/dL Globulin (2.2-3.9) gm/dL Albumin/Globulin Ratio (1.0-2.1) Triglycerides (0-149) mg/dL Cholesterol (0-199) mg/dL LDL Cholesterol Direct (0-129) mg/dL HDL Cholesterol (30-70) mg/dL Blood Type Antibody Screen 01/20/19 01/20/19 01/20/19 Range/Units 04:09 04:09 04:09 WBC (4.8-10.8) K/uL RBC (4.40-5.90) Mil/uL Hgb (12.0-18.0) g/dL Hct (35.0-51.0) % MCV (80.0-94.0) fL MCH (27.0-31.0) pg MCHC (33.0-37.0) g/dL RDW (11.5-14.5) % Plt Count (130-400) K/uL MPV (7.2-11.7) fL Neut % (Auto) (50.0-75.0) % Lymph % (Auto) (20.0-40.0) % Emmet % (Auto) (0.0-10.0) % Eos % (Auto) (0.0-4.0) % Baso % (Auto) (0.0-2.0) % Neut # (Auto) (1.8-7.0) K/uL Lymph # (Auto) (1.0-4.3) K/uL Emmet # (Auto) (0.0-0.8) K/uL Eos # (Auto) (0.0-0.7) K/uL Baso # (Auto) (0.0-0.2) K/uL Absolute Neuts (auto) Retic Count (0.5-1.5) % Haptoglobin (30.0-200.0) mg/dL Sodium (132-148) mmol/L Potassium (3.6-5.2) mmol/L Chloride (98-107) mmol/L Carbon Dioxide (22-30) mmol/L Anion Gap (10-20) BUN (9-20) mg/dL Creatinine (0.8-1.5) mg/dL Est GFR ( Amer) Est GFR (Non-Af Amer) Random Glucose (75-110) mg/dL Hemoglobin A1c 5.4 (4.2-6.5) % Calcium (8.6-10.4) mg/dl Phosphorus (2.5-4.5) mg/dL Magnesium (1.6-2.3) mg/dL Iron 47 L (49-181) ug/dL TIBC 187 L (250-450) ug/dL % Saturation 25 (20-55) Ferritin ng/mL Total Bilirubin (0.2-1.3) mg/dL AST (17-59) U/L ALT (21-72) U/L Alkaline Phosphatase (38-126) U/L Lactate Dehydrogenase (313-618) U/L Total Creatine Kinase (55-170) U/L CK-MB (Mass) (0.0-3.38) ng/mL Troponin I (0.00-0.120) ng/mL NT-Pro-B Natriuret Pep (0-450) pg/mL Total Protein (6.3-8.3) g/dL Albumin (3.5-5.0) g/dL Globulin (2.2-3.9) gm/dL Albumin/Globulin Ratio (1.0-2.1) Triglycerides (0-149) mg/dL Cholesterol (0-199) mg/dL LDL Cholesterol Direct (0-129) mg/dL HDL Cholesterol (30-70) mg/dL Blood Type O NEGATIVE Antibody Screen Negative 01/20/19 01/20/19 01/19/19 Range/Units 04:09 04:09 23:05 WBC Cancelled (4.8-10.8) K/uL RBC Cancelled (4.40-5.90) Mil/uL Hgb Cancelled (12.0-18.0) g/dL Hct Cancelled (35.0-51.0) % MCV Cancelled (80.0-94.0) fL MCH Cancelled (27.0-31.0) pg MCHC Cancelled (33.0-37.0) g/dL RDW Cancelled (11.5-14.5) % Plt Count Cancelled (130-400) K/uL MPV Cancelled (7.2-11.7) fL Neut % (Auto) Cancelled (50.0-75.0) % Lymph % (Auto) Cancelled (20.0-40.0) % Emmet % (Auto) Cancelled (0.0-10.0) % Eos % (Auto) Cancelled (0.0-4.0) % Baso % (Auto) Cancelled (0.0-2.0) % Neut # (Auto) (1.8-7.0) K/uL Lymph # (Auto) Cancelled (1.0-4.3) K/uL Emmet # (Auto) Cancelled (0.0-0.8) K/uL Eos # (Auto) Cancelled (0.0-0.7) K/uL Baso # (Auto) Cancelled (0.0-0.2) K/uL Absolute Neuts (auto) Cancelled Retic Count (0.5-1.5) % Haptoglobin (30.0-200.0) mg/dL Sodium 140 140 (132-148) mmol/L Potassium 6.0 H 5.8 H (3.6-5.2) mmol/L Chloride 103 101 (98-107) mmol/L Carbon Dioxide 16 L 18 L (22-30) mmol/L Anion Gap 28 H 26 H (10-20) BUN 125 H* 120 H* D (9-20) mg/dL Creatinine 21.5 H* 21.8 H* D (0.8-1.5) mg/dL Est GFR ( Amer) 3 3 Est GFR (Non-Af Amer) 3 3 Random Glucose 82 88 (75-110) mg/dL Hemoglobin A1c (4.2-6.5) % Calcium 7.1 L 7.5 L (8.6-10.4) mg/dl Phosphorus 11.1 H 10.2 H (2.5-4.5) mg/dL Magnesium 1.9 2.0 (1.6-2.3) mg/dL Iron (49-181) ug/dL TIBC (250-450) ug/dL % Saturation (20-55) Ferritin 189.0 ng/mL Total Bilirubin 0.9 0.9 (0.2-1.3) mg/dL AST 62 H D 13 L (17-59) U/L ALT 13 L D 7 L D (21-72) U/L Alkaline Phosphatase 55 71 (38-126) U/L Lactate Dehydrogenase (313-618) U/L Total Creatine Kinase (55-170) U/L CK-MB (Mass) (0.0-3.38) ng/mL Troponin I 0.0410 (0.00-0.120) ng/mL NT-Pro-B Natriuret Pep > 08605 H (0-450) pg/mL Total Protein 6.7 7.3 (6.3-8.3) g/dL Albumin 3.9 4.2 (3.5-5.0) g/dL Globulin 2.8 3.0 (2.2-3.9) gm/dL Albumin/Globulin Ratio 1.4 1.4 (1.0-2.1) Triglycerides 173 H D (0-149) mg/dL Cholesterol 179 (0-199) mg/dL LDL Cholesterol Direct 125 (0-129) mg/dL HDL Cholesterol 22 L (30-70) mg/dL Blood Type Antibody Screen 01/19/19 Range/Units 23:05 WBC 9.6 (4.8-10.8) K/uL RBC 2.65 L (4.40-5.90) Mil/uL Hgb 8.0 L (12.0-18.0) g/dL Hct 23.7 L (35.0-51.0) % MCV 89.4 D (80.0-94.0) fL MCH 30.1 (27.0-31.0) pg MCHC 33.6 (33.0-37.0) g/dL RDW 14.8 H (11.5-14.5) % Plt Count 240 (130-400) K/uL MPV 9.3 (7.2-11.7) fL Neut % (Auto) 75.6 H (50.0-75.0) % Lymph % (Auto) 11.5 L (20.0-40.0) % Emmet % (Auto) 8.8 (0.0-10.0) % Eos % (Auto) 3.0 (0.0-4.0) % Baso % (Auto) 1.1 (0.0-2.0) % Neut # (Auto) 7.3 H (1.8-7.0) K/uL Lymph # (Auto) 1.1 (1.0-4.3) K/uL Emmet # (Auto) 0.8 (0.0-0.8) K/uL Eos # (Auto) 0.3 (0.0-0.7) K/uL Baso # (Auto) 0.1 (0.0-0.2) K/uL Absolute Neuts (auto) Retic Count (0.5-1.5) % Haptoglobin (30.0-200.0) mg/dL Sodium (132-148) mmol/L Potassium (3.6-5.2) mmol/L Chloride (98-107) mmol/L Carbon Dioxide (22-30) mmol/L Anion Gap (10-20) BUN (9-20) mg/dL Creatinine (0.8-1.5) mg/dL Est GFR ( Amer) Est GFR (Non-Af Amer) Random Glucose (75-110) mg/dL Hemoglobin A1c (4.2-6.5) % Calcium (8.6-10.4) mg/dl Phosphorus (2.5-4.5) mg/dL Magnesium (1.6-2.3) mg/dL Iron (49-181) ug/dL TIBC (250-450) ug/dL % Saturation (20-55) Ferritin ng/mL Total Bilirubin (0.2-1.3) mg/dL AST (17-59) U/L ALT (21-72) U/L Alkaline Phosphatase (38-126) U/L Lactate Dehydrogenase (313-618) U/L Total Creatine Kinase (55-170) U/L CK-MB (Mass) (0.0-3.38) ng/mL Troponin I (0.00-0.120) ng/mL NT-Pro-B Natriuret Pep (0-450) pg/mL Total Protein (6.3-8.3) g/dL Albumin (3.5-5.0) g/dL Globulin (2.2-3.9) gm/dL Albumin/Globulin Ratio (1.0-2.1) Triglycerides (0-149) mg/dL Cholesterol (0-199) mg/dL LDL Cholesterol Direct (0-129) mg/dL HDL Cholesterol (30-70) mg/dL Blood Type Antibody Screen Laboratory Results - last 24 hr 01/19/19 01/19/19 01/20/19 23:05 23:05 04:09 WBC 9.6 Cancelled RBC 2.65 L Cancelled Hgb 8.0 L Cancelled Hct 23.7 L Cancelled MCV 89.4 D Cancelled MCH 30.1 Cancelled MCHC 33.6 Cancelled RDW 14.8 H Cancelled Plt Count 240 Cancelled MPV 9.3 Cancelled Neut % (Auto) 75.6 H Cancelled Lymph % (Auto) 11.5 L Cancelled Emmet % (Auto) 8.8 Cancelled Eos % (Auto) 3.0 Cancelled Baso % (Auto) 1.1 Cancelled Neut # (Auto) 7.3 H Lymph # (Auto) 1.1 Cancelled Emmet # (Auto) 0.8 Cancelled Eos # (Auto) 0.3 Cancelled Baso # (Auto) 0.1 Cancelled Absolute Neuts (auto) Cancelled Retic Count Haptoglobin Sodium 140 Potassium 5.8 H Chloride 101 Carbon Dioxide 18 L Anion Gap 26 H BUN 120 H* D Creatinine 21.8 H* D Est GFR ( Amer) 3 Est GFR (Non-Af Amer) 3 Random Glucose 88 Hemoglobin A1c Calcium 7.5 L Phosphorus 10.2 H Magnesium 2.0 Iron TIBC % Saturation Ferritin Total Bilirubin 0.9 AST 13 L ALT 7 L D Alkaline Phosphatase 71 Lactate Dehydrogenase Total Creatine Kinase CK-MB (Mass) Troponin I 0.0410 NT-Pro-B Natriuret Pep > 92440 H Total Protein 7.3 Albumin 4.2 Globulin 3.0 Albumin/Globulin Ratio 1.4 Triglycerides Cholesterol LDL Cholesterol Direct HDL Cholesterol Blood Type Antibody Screen 01/20/19 01/20/19 01/20/19 04:09 04:09 04:09 WBC RBC Hgb Hct MCV MCH MCHC RDW Plt Count MPV Neut % (Auto) Lymph % (Auto) Emmet % (Auto) Eos % (Auto) Baso % (Auto) Neut # (Auto) Lymph # (Auto) Emmet # (Auto) Eos # (Auto) Baso # (Auto) Absolute Neuts (auto) Retic Count Haptoglobin Sodium 140 Potassium 6.0 H Chloride 103 Carbon Dioxide 16 L Anion Gap 28 H BUN 125 H* Creatinine 21.5 H* Est GFR ( Amer) 3 Est GFR (Non-Af Amer) 3 Random Glucose 82 Hemoglobin A1c 5.4 Calcium 7.1 L Phosphorus 11.1 H Magnesium 1.9 Iron TIBC % Saturation Ferritin 189.0 Total Bilirubin 0.9 AST 62 H D ALT 13 L D Alkaline Phosphatase 55 Lactate Dehydrogenase Total Creatine Kinase CK-MB (Mass) Troponin I NT-Pro-B Natriuret Pep Total Protein 6.7 Albumin 3.9 Globulin 2.8 Albumin/Globulin Ratio 1.4 Triglycerides 173 H D Cholesterol 179 LDL Cholesterol Direct 125 HDL Cholesterol 22 L Blood Type O NEGATIVE Antibody Screen Negative 01/20/19 01/20/19 01/20/19 04:09 04:09 04:28 WBC 9.9 RBC 2.48 L Hgb 7.1 L Hct 22.2 L MCV 89.7 MCH 28.8 MCHC 32.0 L RDW 15.1 H Plt Count 217 MPV 9.3 Neut % (Auto) 73.0 Lymph % (Auto) 13.3 L Emmet % (Auto) 9.8 Eos % (Auto) 3.2 Baso % (Auto) 0.7 Neut # (Auto) 7.2 H Lymph # (Auto) 1.3 Emmet # (Auto) 1.0 H Eos # (Auto) 0.3 Baso # (Auto) 0.1 Absolute Neuts (auto) Retic Count Haptoglobin 206.8 H Sodium Potassium Chloride Carbon Dioxide Anion Gap BUN Creatinine Est GFR ( Amer) Est GFR (Non-Af Amer) Random Glucose Hemoglobin A1c Calcium Phosphorus Magnesium Iron 47 L TIBC 187 L % Saturation 25 Ferritin Total Bilirubin AST ALT Alkaline Phosphatase Lactate Dehydrogenase Total Creatine Kinase CK-MB (Mass) Troponin I NT-Pro-B Natriuret Pep Total Protein Albumin Globulin Albumin/Globulin Ratio Triglycerides Cholesterol LDL Cholesterol Direct HDL Cholesterol Blood Type Antibody Screen 01/20/19 01/20/19 01/20/19 05:41 05:41 08:22 WBC RBC Hgb Hct MCV MCH MCHC RDW Plt Count MPV Neut % (Auto) Lymph % (Auto) Emmet % (Auto) Eos % (Auto) Baso % (Auto) Neut # (Auto) Lymph # (Auto) Emmet # (Auto) Eos # (Auto) Baso # (Auto) Absolute Neuts (auto) Retic Count 1.2 Haptoglobin Sodium Potassium Chloride Carbon Dioxide Anion Gap BUN Creatinine Est GFR ( Amer) Est GFR (Non-Af Amer) Random Glucose Hemoglobin A1c Calcium Phosphorus Magnesium Iron TIBC % Saturation Ferritin Total Bilirubin AST ALT Alkaline Phosphatase Lactate Dehydrogenase 760 H Total Creatine Kinase 106 CK-MB (Mass) 1.56 Troponin I 0.0400 NT-Pro-B Natriuret Pep Total Protein Albumin Globulin Albumin/Globulin Ratio Triglycerides Cholesterol LDL Cholesterol Direct HDL Cholesterol Blood Type Antibody Screen 01/20/19 14:06 WBC RBC Hgb Hct MCV MCH MCHC RDW Plt Count MPV Neut % (Auto) Lymph % (Auto) Emmet % (Auto) Eos % (Auto) Baso % (Auto) Neut # (Auto) Lymph # (Auto) Emmet # (Auto) Eos # (Auto) Baso # (Auto) Absolute Neuts (auto) Retic Count Haptoglobin Sodium Potassium Chloride Carbon Dioxide Anion Gap BUN Creatinine Est GFR ( Amer) Est GFR (Non-Af Amer) Random Glucose Hemoglobin A1c Calcium Phosphorus Magnesium Iron TIBC % Saturation Ferritin Total Bilirubin AST ALT Alkaline Phosphatase Lactate Dehydrogenase Total Creatine Kinase 103 CK-MB (Mass) 1.58 Troponin I 0.0230 NT-Pro-B Natriuret Pep Total Protein Albumin Globulin Albumin/Globulin Ratio Triglycerides Cholesterol LDL Cholesterol Direct HDL Cholesterol Blood Type Antibody Screen Radiology Impressions: Radiology Impressions Chest X-Ray 01/19/19 23:19 IMPRESSION: Worsening pulmonary venous congestion and interval development of pulmonary edema, worse in the right perihilar region. EKG/Cardiology Studies: Cardiology / EKG Studies 01/19/19 23:00 EKG [ELECTROCARDIOGRAM] Stat Comment: Mode Of Transportation: BED Reason For Exam: cp Review of Systems - Review of Systems All systems: reviewed and no additional remarkable complaints except Critical Care Progress Note - Nutrition Nutrition: Nutrition Category Date Time Status Renal Diet [DIET] Diets 01/20/19 Lunch Active Assessment/Plan - Assessment and Plan (Free Text) Assessment: 28 year old male with a past medical history of esrd (MWF), hyperlipidemia, and hypertension presents to the hospital after reporting being short of breath for the past day Plan: Pulm Dyspnea -CXR: mild venous congestion, pathcy interstitial markings at left lung base w/ possible small pleural effusion -BNP:35,000 -Likely secondary to non-compliance with dialysis sessions. -Tolerating nasal canula Nephro ESRD -BUN/Cr 120/21.5 -Patient last HD session January 10. Patient subsequently signed out AMA January 13. -HD MWF -Patient has well documented history of non-compliance with dialysis sessions. -Nephrology Dr. Butler consulted--> Help appreciated Medications: Phoslo 667mg PO TID CC VINH Calcitriol 1mcg po daily vinh Nephro-Edi 1 tab PO 0800 [facility] Cardio Chest pain -EKG on admission: Sinus tachycardia @104 bpm, No ST-T changes -Troponin (-)x3 -Lipid panel - elevated TGs (173) -Hemoglobin A1C 5.4 Hypertension -Restart Cozaar 50mg PO Daily -Restart Clonidine .1mg PO BID VINH -Restrat Norvasc 10mg PO Daily Hyperlipidemia -Rosuvastatin 5mg PO HS VINH Heme Anemia of Chronic Disease -H/H : 8/23.7 on admission. Chart review baseline 9 -Iron studies ordered - low iron/TIBC PPX -Pepcid -SCD's Assessment and plan d/w Dr. Zuleyma Garcia, PGY-1
[2019-01-20 18:33] LABS: BARBITURATES, UR NEGATIVE (NEGATIVE); BENZODIAZEPINES, UR NEGATIVE (NEGATIVE); OPIATES, UR NEGATIVE (NEGATIVE)
[2019-01-20 18:37] LABS: PHENCYCLIDINE, UR POSITIVE (NEGATIVE)
--- NOTE | 2019-01-20 20:36 | CP.PCM.HP ---
Past Patient History - Infectious Disease Hx of Infectious Diseases: None - Tetanus Immunizations Tetanus Immunization: Unknown - Past Medical History & Family History Past Medical History?: Yes - Past Social History Smoking Status: Current Some Days Smoker Chewing Tobacco Use: No Cigar Use: No Alcohol: Occasional Drugs: Other - CARDIAC Hx Hypercholesterolemia: Yes Hx Hypertension: Yes - PULMONARY Hx Asthma: Yes - NEUROLOGICAL Hx Neurological Disorder: No - HEENT Hx HEENT Problems: No - RENAL Hx Chronic Kidney Disease: No - ENDOCRINE/METABOLIC Hx Endocrine Disorders: No - HEMATOLOGICAL/ONCOLOGICAL Hx Blood Disorders: No - INTEGUMENTARY Hx Dermatological Problems: No - MUSCULOSKELETAL/RHEUMATOLOGICAL Hx Falls: No - GASTROINTESTINAL Hx Gastrointestinal Disorders: No - GENITOURINARY/GYNECOLOGICAL Hx Genitourinary Disorders: No - PSYCHIATRIC Hx Substance Use: Yes - SURGICAL HISTORY Hx Surgeries: No Other/Comment: LEFT HEAD SURGERY DUE TO INJURY - ANESTHESIA Hx Anesthesia: No Meds Allergies/Adverse Reactions: Allergies Allergy/AdvReac Type Severity Reaction Status Date / Time FISH Allergy REDNESS Verified 09/03/18 07:56 Physical Exam - Constitutional Appears: Well - Head Exam Head Exam: ATRAUMATIC, NORMAL INSPECTION, NORMOCEPHALIC - Eye Exam Eye Exam: EOMI, Normal appearance, PERRL Pupil Exam: NORMAL ACCOMODATION, PERRL - ENT Exam ENT Exam: Mucous Membranes Moist, Normal Exam - Neck Exam Neck exam: Positive for: Normal Inspection - Respiratory Exam Respiratory Exam: Decreased Breath Sounds - Cardiovascular Exam Cardiovascular Exam: REGULAR RHYTHM, +S1, +S2 - GI/Abdominal Exam GI & Abdominal Exam: Diminished Bowel Sounds, Soft - Rectal Exam Rectal Exam: Deferred - Neurological Exam Neurological exam: Oriented x3 Results - Vital Signs Recent Vital Signs: Last Vital Signs Temp 98.3 F 01/20/19 16:00 Pulse 95 H 01/20/19 20:00 Resp 22 01/20/19 20:00 BP 139/89 01/20/19 19:41 Pulse Ox 97 01/20/19 20:00 - Labs Result Diagrams: 01/20/19 04:28 01/20/19 04:09 Labs: Laboratory Results - last 24 hr 01/19/19 01/19/19 01/20/19 23:05 23:05 04:09 WBC 9.6 Cancelled RBC 2.65 L Cancelled Hgb 8.0 L Cancelled Hct 23.7 L Cancelled MCV 89.4 D Cancelled MCH 30.1 Cancelled MCHC 33.6 Cancelled RDW 14.8 H Cancelled Plt Count 240 Cancelled MPV 9.3 Cancelled Neut % (Auto) 75.6 H Cancelled Lymph % (Auto) 11.5 L Cancelled [place] % (Auto) 8.8 Cancelled Eos % (Auto) 3.0 Cancelled Baso % (Auto) 1.1 Cancelled Neut # (Auto) 7.3 H Lymph # (Auto) 1.1 Cancelled [place] # (Auto) 0.8 Cancelled Eos # (Auto) 0.3 Cancelled Baso # (Auto) 0.1 Cancelled Absolute Neuts (auto) Cancelled Retic Count Haptoglobin Sodium 140 Potassium 5.8 H Chloride 101 Carbon Dioxide 18 L Anion Gap 26 H BUN 120 H* D Creatinine 21.8 H* D Est GFR ( Amer) 3 Est GFR (Non-Af Amer) 3 Random Glucose 88 Hemoglobin A1c Calcium 7.5 L Phosphorus 10.2 H Magnesium 2.0 Iron TIBC % Saturation Ferritin Total Bilirubin 0.9 AST 13 L ALT 7 L D Alkaline Phosphatase 71 Lactate Dehydrogenase Total Creatine Kinase CK-MB (Mass) Troponin I 0.0410 NT-Pro-B Natriuret Pep > 03742 H Total Protein 7.3 Albumin 4.2 Globulin 3.0 Albumin/Globulin Ratio 1.4 Triglycerides Cholesterol LDL Cholesterol Direct HDL Cholesterol Urine Opiates Screen Urine Methadone Screen Ur Barbiturates Screen Ur Phencyclidine Scrn Ur Amphetamines Screen U Benzodiazepines Scrn U Oth Cocaine Metabols U Cannabinoids Screen Blood Type Antibody Screen 01/20/19 01/20/19 01/20/19 04:09 04:09 04:09 WBC RBC Hgb Hct MCV MCH MCHC RDW Plt Count MPV Neut % (Auto) Lymph % (Auto) [place] % (Auto) Eos % (Auto) Baso % (Auto) Neut # (Auto) Lymph # (Auto) [place] # (Auto) Eos # (Auto) Baso # (Auto) Absolute Neuts (auto) Retic Count Haptoglobin Sodium 140 Potassium 6.0 H Chloride 103 Carbon Dioxide 16 L Anion Gap 28 H BUN 125 H* Creatinine 21.5 H* Est GFR ( Amer) 3 Est GFR (Non-Af Amer) 3 Random Glucose 82 Hemoglobin A1c 5.4 Calcium 7.1 L Phosphorus 11.1 H Magnesium 1.9 Iron TIBC % Saturation Ferritin 189.0 Total Bilirubin 0.9 AST 62 H D ALT 13 L D Alkaline Phosphatase 55 Lactate Dehydrogenase Total Creatine Kinase CK-MB (Mass) Troponin I NT-Pro-B Natriuret Pep Total Protein 6.7 Albumin 3.9 Globulin 2.8 Albumin/Globulin Ratio 1.4 Triglycerides 173 H D Cholesterol 179 LDL Cholesterol Direct 125 HDL Cholesterol 22 L Urine Opiates Screen Urine Methadone Screen Ur Barbiturates Screen Ur Phencyclidine Scrn Ur Amphetamines Screen U Benzodiazepines Scrn U Oth Cocaine Metabols U Cannabinoids Screen Blood Type O NEGATIVE Antibody Screen Negative 01/20/19 01/20/19 01/20/19 04:09 04:09 04:28 WBC 9.9 RBC 2.48 L Hgb 7.1 L Hct 22.2 L MCV 89.7 MCH 28.8 MCHC 32.0 L RDW 15.1 H Plt Count 217 MPV 9.3 Neut % (Auto) 73.0 Lymph % (Auto) 13.3 L [place] % (Auto) 9.8 Eos % (Auto) 3.2 Baso % (Auto) 0.7 Neut # (Auto) 7.2 H Lymph # (Auto) 1.3 [place] # (Auto) 1.0 H Eos # (Auto) 0.3 Baso # (Auto) 0.1 Absolute Neuts (auto) Retic Count Haptoglobin 206.8 H Sodium Potassium Chloride Carbon Dioxide Anion Gap BUN Creatinine Est GFR ( Amer) Est GFR (Non-Af Amer) Random Glucose Hemoglobin A1c Calcium Phosphorus Magnesium Iron 47 L TIBC 187 L % Saturation 25 Ferritin Total Bilirubin AST ALT Alkaline Phosphatase Lactate Dehydrogenase Total Creatine Kinase CK-MB (Mass) Troponin I NT-Pro-B Natriuret Pep Total Protein Albumin Globulin Albumin/Globulin Ratio Triglycerides Cholesterol LDL Cholesterol Direct HDL Cholesterol Urine Opiates Screen Urine Methadone Screen Ur Barbiturates Screen Ur Phencyclidine Scrn Ur Amphetamines Screen U Benzodiazepines Scrn U Oth Cocaine Metabols U Cannabinoids Screen Blood Type Antibody Screen 01/20/19 01/20/19 01/20/19 05:41 05:41 08:22 WBC RBC Hgb Hct MCV MCH MCHC RDW Plt Count MPV Neut % (Auto) Lymph % (Auto) [place] % (Auto) Eos % (Auto) Baso % (Auto) Neut # (Auto) Lymph # (Auto) [place] # (Auto) Eos # (Auto) Baso # (Auto) Absolute Neuts (auto) Retic Count 1.2 Haptoglobin Sodium Potassium Chloride Carbon Dioxide Anion Gap BUN Creatinine Est GFR ( Amer) Est GFR (Non-Af Amer) Random Glucose Hemoglobin A1c Calcium Phosphorus Magnesium Iron TIBC % Saturation Ferritin Total Bilirubin AST ALT Alkaline Phosphatase Lactate Dehydrogenase 760 H Total Creatine Kinase 106 CK-MB (Mass) 1.56 Troponin I 0.0400 NT-Pro-B Natriuret Pep Total Protein Albumin Globulin Albumin/Globulin Ratio Triglycerides Cholesterol LDL Cholesterol Direct HDL Cholesterol Urine Opiates Screen Urine Methadone Screen Ur Barbiturates Screen Ur Phencyclidine Scrn Ur Amphetamines Screen U Benzodiazepines Scrn U Oth Cocaine Metabols U Cannabinoids Screen Blood Type Antibody Screen 01/20/19 01/20/19 14:06 17:50 WBC RBC Hgb Hct MCV MCH MCHC RDW Plt Count MPV Neut % (Auto) Lymph % (Auto) [place] % (Auto) Eos % (Auto) Baso % (Auto) Neut # (Auto) Lymph # (Auto) [place] # (Auto) Eos # (Auto) Baso # (Auto) Absolute Neuts (auto) Retic Count Haptoglobin Sodium Potassium Chloride Carbon Dioxide Anion Gap BUN Creatinine Est GFR ( Amer) Est GFR (Non-Af Amer) Random Glucose Hemoglobin A1c Calcium Phosphorus Magnesium Iron TIBC % Saturation Ferritin Total Bilirubin AST ALT Alkaline Phosphatase Lactate Dehydrogenase Total Creatine Kinase 103 CK-MB (Mass) 1.58 Troponin I 0.0230 NT-Pro-B Natriuret Pep Total Protein Albumin Globulin Albumin/Globulin Ratio Triglycerides Cholesterol LDL Cholesterol Direct HDL Cholesterol Urine Opiates Screen Negative Urine Methadone Screen Negative Ur Barbiturates Screen Negative Ur Phencyclidine Scrn Positive H Ur Amphetamines Screen Negative U Benzodiazepines Scrn Negative U Oth Cocaine Metabols Negative U Cannabinoids Screen Negative Blood Type Antibody Screen
[2019-01-21 05:57] LABS: BASO # 0.1 K/uL (0.0-0.2); BASO % 1.6 % (0.0-2.0); EOS # 0.3 K/uL (0.0-0.7); EOS % 6.5 % (0.0-4.0); LYMPH # 1.3 K/uL (1.0-4.3); LYMPH % 27.1 % (20.0-40.0); MEAN CELL VOLUME 89.3 fL (80.0-94.0); MEAN CORPUSCULAR HEMOGLOBIN 29.1 pg (27.0-31.0); MEAN CORPUSCULAR HGB CONC 32.6 g/dL (33.0-37.0); MEAN PLATELET VOLUME 9.7 fL (7.2-11.7); MONO # 0.7 K/uL (0.0-0.8); MONO % 13.8 % (0.0-10.0); NEUT # 2.4 K/uL (1.8-7.0); RBC 2.39 Mil/uL (4.40-5.90); RED CELL DISTRIBUTION WIDTH 14.8 % (11.5-14.5); WHITE BLOOD COUNT 4.8 K/uL (4.8-10.8)
[2019-01-21 06:58] LABS: ALB/GLOB RATIO 1.4 (1.0-2.1); ALBUMIN 3.8 g/dL (3.5-5.0); CALCIUM 7.7 mg/dl (8.6-10.4)
[2019-01-21] MEDS: Multivitamin Vitamin B Complex (Nephro-Vite) Tab PO SCH (07:54)
[2019-01-21 08:01] VITALS: BP 156/100
[2019-01-21 08:02] VITALS: TEMP 98.6
--- NOTE | 2019-01-21 08:38 | CP.PCM.PN ---
Subjective - Date & Time of Evaluation Date of Evaluation: 01/21/19 Time of Evaluation: 08:35 - Subjective Subjective: afebrile bp elevated comfortable in chair complaining of insomnia ROS no chills fever no chest pain no sob ,cough no abd pain n,v,d no dysuri no headache dizziness Objective - Vital Signs/Intake and Output Vital Signs (last 24 hours): Temp Pulse Resp BP Pulse Ox 98.6 F 82 33 H 156/100 H 94 L 01/21/19 08:00 01/21/19 07:00 01/21/19 07:00 01/21/19 07:53 01/21/19 07:00 Intake and Output: 01/21/19 01/21/19 06:59 18:59 Intake Total 480 0 Output Total 0 Balance 480 0 - Medications Medications: Current Medications Acetaminophen (Tylenol 325mg Tab) 650 mg PO Q6 PRN PRN Reason: Pain, moderate (4-7) Last Admin: 01/20/19 18:08 Dose: 650 mg Amlodipine Besylate (Norvasc) 10 mg PO DAILY [facility] Last Admin: 01/20/19 12:11 Dose: 10 mg Calcitriol (Rocaltrol) 1 mcg PO DAILY [facility] Last Admin: 01/20/19 12:07 Dose: 1 mcg Calcium Acetate (Phoslo) 667 mg PO TIDCC [facility] Last Admin: 01/21/19 07:54 Dose: 667 mg Clonidine HCl (Catapres) 0.1 mg PO BID [facility] Last Admin: 01/20/19 17:13 Dose: 0.1 mg Epoetin Ovi (Procrit) 10,000 unit IV MWF [facility] Last Admin: 01/20/19 11:30 Dose: 10,000 unit Famotidine (Pepcid) 20 mg PO DAILY [facility] Last Admin: 01/20/19 09:08 Dose: 20 mg Losartan Potassium (Cozaar) 50 mg PO DAILY [facility] Last Admin: 01/20/19 12:12 Dose: 50 mg Pneumococcal Polyvalent Vaccine (Pneumovax 23 Vaccine) 0.5 ml IM .ONCE ONE Stop: 01/22/19 10:01 Rosuvastatin Calcium (Crestor) 5 mg PO HS [facility] Last Admin: 01/20/19 21:55 Dose: 5 mg Vitamin B Complex/Vit C/Folic Acid (Nephro-Edi) 1 tab PO 0800 [facility] Last Admin: 01/21/19 07:54 Dose: 1 tab - Labs Labs: 01/21/19 05:48 01/21/19 05:48 - Constitutional Appears: Well, No Acute Distress - Eye Exam Eye Exam: Normal appearance - ENT Exam ENT Exam: Mucous Membranes Moist - Respiratory Exam Respiratory Exam: Clear to Ausculation Bilateral, NORMAL BREATHING PATTERN - Cardiovascular Exam Cardiovascular Exam: REGULAR RHYTHM. absent: JVD - GI/Abdominal Exam GI & Abdominal Exam: Soft. absent: Tenderness Additional comments: obese - Extremities Exam Extremities Exam: absent: Calf Tenderness - Back Exam Back Exam: absent: CVA tenderness (L), CVA tenderness (R) - Neurological Exam Neurological Exam: Alert, Awake - Psychiatric Exam Psychiatric exam: Normal Affect - Skin Skin Exam: Dry, Warm Assessment and Plan (1) CHF (congestive heart failure) Status: Acute (2) Noncompliance with renal dialysis Status: Acute (3) Respiratory distress Status: Acute (4) ESRD (end stage renal disease) Status: Acute (5) HTN (hypertension) Status: Acute - Assessment and Plan (Free Text) Plan: add clonidine to regimen dialysis scheduled for 01/22 contniue to ultrafiltrate
--- NOTE | 2019-01-21 09:20 | RAD ---
Date of service: 01/21/2019 HISTORY: evaluate pulmonary congestion/edema COMPARISON: 01/20/2019 FINDINGS: Right-sided dialysis catheter terminates at the cavoatrial junction. LUNGS: The lungs are well inflated and clear. There is mild pulmonary venous congestion. PLEURA: No pleural effusions or pneumothorax. CARDIOVASCULAR: There is moderate cardiomegaly. No aortic atherosclerotic calcifications present. OSSEOUS STRUCTURES: Within normal limits for the patient's age. VISUALIZED UPPER ABDOMEN: Normal. OTHER FINDINGS: None. IMPRESSION: No active pulmonary disease. Moderate cardiomegaly and mild pulmonary venous congestion.
[2019-01-21 11:48] VITALS: PULSE 92; RESP 21; O2SAT 93
[2019-01-22] MEDS ORDERED: Pneumococcal 23-Valent Vaccine IM ONE (10:00)
== END 2019-01-21 10:45 | disposition left against medical advice (07) | DRG 127 ==
LOC: C.ER 22:47 → C.9I 01-20 02:45
PROVIDERS: ADMIT Internal Medicine Nephrology; ATTEND Internal Medicine Nephrology
PROC: 5A09457 Assistance with Respiratory Ventilation, 24-96 Consecutive Hours, Continuous Positive Airway Pressure (ICD-10-PCS; principal; 2019-01-20)
PROC: 5A1D70Z Performance of Urinary Filtration, Intermittent, Less than 6 Hours Per Day (ICD-10-PCS; 2019-01-20)
DX: I13.2 Hypertensive heart and chronic kidney disease with heart failure and with stage 5 chronic kidney disease, or end stage renal disease (principal); F16.90 Hallucinogen use, unspecified, uncomplicated; I50.9 Heart failure, unspecified; N18.6 End stage renal disease; E78.5 Hyperlipidemia, unspecified; G47.00 Insomnia, unspecified; I16.0 Hypertensive urgency; J45.909 Unspecified asthma, uncomplicated; F17.290 Nicotine dependence, other tobacco product, uncomplicated; Z91.15 Patient's noncompliance with renal dialysis; Z99.2 Dependence on renal dialysis

== ENCOUNTER 2019-01-29 16:39 | Observation (INO) | payer MEDICAID | END 2019-02-01 15:43 | disposition home or self-care (01) | LOC: C.ER 16:39 → C.9E 18:47 → C.6T 19:39 | PROVIDERS: ADMIT Internal Medicine Nephrology | CPT/HCPCS: 36415; 71045; 80053; 81001; 83735; 84100; 84484; 85025; 93005; 93306; 99283; G0257; G0378; J1644; Q4081 ==

== ENCOUNTER 2019-02-04 18:41 | Observation (INO) | payer MEDICAID ==
[2019-02-04 18:42] VITALS: BMI 41.5
--- NOTE | 2019-02-04 20:57 | C.PDOC ---
History Of Present Illness 28-year-old male presents to the ED from long term requesting dialysis. Patient has recently been receiving dialysis at this facility every other day. Patient has not yet been set up with outpatient dialysis. Patient presents to the ED in police custody, with hand cuffs to the ED bed. Patient does not offer any additional complaints at this time. Time Seen by Provider: 02/04/19 20:26 Chief Complaint (Nursing): Medical Clearance History Per: Patient History/Exam Limitations: no limitations Onset/Duration Of Symptoms: Hrs Current Symptoms Are (Timing): Still Present Additional History Per: Patient Past Medical History Reviewed: Historical Data, Nursing Documentation, Vital Signs Vital Signs: Last Vital Signs Temp 98.8 F 02/04/19 18:47 Pulse 60 02/04/19 18:47 Resp 18 02/04/19 18:47 BP 131/81 02/04/19 18:47 Pulse Ox 100 02/04/19 18:47 Primary Care Provider: Non [facility] Provider, - Medical History PMH: Asthma, HTN, Hypercholesterolemia, End Stage Renal Disease (on dialysis M-W-F), Chronic Kidney Disease Surgical History: No Surg Hx - [facility] Procedures (01/20/19) ASSISTANCE WITH RESPIRATORY VENTILATION, 24-96 HRS, CPAP (01/20/19) BYPASS L RADIAL ART TO LOW ARM VEIN W AUTOL VN, OPEN (07/28/18) CLOSURE SKIN & SUBCUTANEOUS NEC (11/25/01) Family History: States: Unknown Family Hx - Social History Hx Tobacco Use: Yes Hx Alcohol Use: Yes Hx Substance Use: Yes - Immunization History Hx Tetanus Toxoid Vaccination: Yes Hx Influenza Vaccination: No Hx Pneumococcal Vaccination: No Review Of Systems Genitourinary: Positive for: Other (dialysis ) Physical Exam - Physical Exam Appears: Non-toxic, No Acute Distress Skin: Normal Color, Warm, Dry Head: Atraumatic, Normacephalic Eye(s): bilateral: Normal Inspection Oral Mucosa: Moist Neck: Supple Chest: Symmetrical, No Deformity, No Tenderness, Other (dialysis catheter to right upper chest wall ) Cardiovascular: Rhythm Regular, No Murmur Respiratory: Normal Breath Sounds, No Rales, No Rhonchi, No Wheezing Gastrointestinal/Abdominal: Soft, No Tenderness Extremity: Normal ROM, Capillary Refill (less than 2 seconds ) Neurological/Psych: Normal Speech, Normal Cognition ED Course And Treatment - Laboratory Results Result Diagrams: 02/04/19 22:02 02/04/19 22:02 Lab Interpretation: Abnormal (normal K+, c/w ESRD on HD) ECG: Interpreted By Me ECG Rhythm: Sinus Rhythm ECG Interpretation: Normal Rate From EC O2 Sat by Pulse Oximetry: 100 (on RA ) Pulse Ox Interpretation: Normal - Radiology CXR: Interpreted by Me CXR Interpretation: Yes: No Acute Disease Progress Note: Bloodwork, CXR, EKG ordered and reviewed. Reevaluation Time: 22:51 Reassessment Condition: Unchanged - Physician Consult Information Outcome Of Conversation: 2100: d/w Dr. Antonietta Seo, prior Adm- ok to Obs, plan for HD in AM Medical Decision Making Medical Decision Making: Prisoner ESRD on HD, unable to arrange regular HD for ? reason while incarcerated pending HD in AM and release Disposition Doctor Will See Patient In The: Hospital Counseled Patient/Family Regarding: Studies Performed, Diagnosis - Disposition Disposition: HOSPITALIZED Disposition Time: 22:53 Condition: GOOD Forms: [facility] [facility] ([place]) - Clinical Impression Clinical Impression: ESRD needing dialysis - Scribe Statement The provider has reviewed the documentation as recorded by the Scribe (Karen Seo) Provider Attestation: All medical record entries made by the Scribe were at my direction and personally dictated by me. I have reviewed the chart and agree that the record accurately reflects my personal performance of the history, physical exam, medical decision making, and the department course for this patient. I have also personally directed, reviewed, and agree with the discharge instructions and disposition.
[2019-02-04 22:06] LABS: BASO # 0.1 K/uL (0.0-0.2); BASO % 1.4 % (0.0-2.0); EOS # 0.4 K/uL (0.0-0.7); EOS % 4.7 % (0.0-4.0); HEMOGLOBIN 9.2 g/dL (12.0-18.0); LYMPH # 2.2 K/uL (1.0-4.3); LYMPH % 26.6 % (20.0-40.0); MEAN CORPUSCULAR HEMOGLOBIN 30.1 pg (27.0-31.0); MEAN CORPUSCULAR HGB CONC 33.9 g/dL (33.0-37.0); MEAN PLATELET VOLUME 9.8 fL (7.2-11.7); MONO # 0.7 K/uL (0.0-0.8); MONO % 8.6 % (0.0-10.0); NEUT # 4.8 K/uL (1.8-7.0); NEUT % 58.7 % (50.0-75.0); NRBC % 0.1 % (0.0-2.0); RBC 3.04 Mil/uL (4.40-5.90); RED CELL DISTRIBUTION WIDTH 15.8 % (11.5-14.5); WHITE BLOOD COUNT 8.2 K/uL (4.8-10.8)
[2019-02-04 22:32] LABS: ALB/GLOB RATIO 1.4 (1.0-2.1); ALBUMIN 4.4 g/dL (3.5-5.0); ALT/SGPT 21 U/L (21-72); AST/SGOT 14 U/L (17-59); BLOOD UREA NITROGEN 82 mg/dL (9-20); CALCIUM 9.3 mg/dl (8.6-10.4)
[2019-02-04 22:43] LABS: GFR NON-AFRICAN AMERICAN 3
--- NOTE | 2019-02-05 07:54 | RAD ---
Chest x-ray single frontal view HISTORY: Shortness of breath. COMPARISON: 01/29/2018 Findings: Right central venous catheter tip extending into the cavoatrial junction. No focal infiltrate or effusion. Heart size within normal limits. Impression: No focal infiltrate or effusion.
[2019-02-05] MEDS ORDERED: Pantoprazole 40 mg EC Tab PO SCH (10:00)
--- NOTE | 2019-02-05 15:30 | CP.PCM.CON ---
History of Present Illness - History of Present Illness History of Present Illness: 28 yo male, ESRD, incarcerated, aggressive personality, HTN, bipolar, presents for routine dialysis. No service available in facility. No acute complaints. Using a catheter for HD. No chest pain, sob, fever. Review of Systems - Review of Systems Systems not reviewed;Unavailable: Uncooperative Past Patient History - Infectious Disease Hx of Infectious Diseases: None - Tetanus Immunizations Tetanus Immunization: Unknown - Past Medical History & Family History Past Medical History?: Yes - Past Social History Smoking Status: Never Smoked - CARDIAC Hx Hypercholesterolemia: Yes Hx Hypertension: Yes - PULMONARY Hx Asthma: Yes - NEUROLOGICAL Hx Neurological Disorder: No - HEENT Hx HEENT Problems: No - RENAL Hx Chronic Kidney Disease: Yes - ENDOCRINE/METABOLIC Hx Endocrine Disorders: No - HEMATOLOGICAL/ONCOLOGICAL Hx Blood Disorders: No - INTEGUMENTARY Hx Dermatological Problems: No - MUSCULOSKELETAL/RHEUMATOLOGICAL Hx Falls: No - GASTROINTESTINAL Hx Gastrointestinal Disorders: No - GENITOURINARY/GYNECOLOGICAL Hx Genitourinary Disorders: No - PSYCHIATRIC Hx Bipolar Disorder: Yes Hx Substance Use: Yes - SURGICAL HISTORY Hx Surgeries: No Other/Comment: LEFT HEAD SURGERY DUE TO INJURY. L hand fistula. R side chest yazmin cath - ANESTHESIA Hx Anesthesia: Yes Hx Anesthesia Reactions: No Meds Allergies/Adverse Reactions: Allergies Allergy/AdvReac Type Severity Reaction Status Date / Time FISH Allergy REDNESS Verified 01/29/19 16:48 - Medications Medications: Current Medications Amlodipine Besylate (Norvasc) 10 mg PO DAILY [facility] Last Admin: 02/05/19 09:53 Dose: 10 mg Furosemide (Lasix) 80 mg IVP DAILY [facility] Last Admin: 02/05/19 09:54 Dose: 80 mg Heparin Sodium (Porcine) (Heparin) 5,000 units SC BID [facility] Last Admin: 02/05/19 09:54 Dose: Not Given Pantoprazole Sodium (Protonix Ec Tab) 40 mg PO DAILY [facility] Last Admin: 02/05/19 09:53 Dose: 40 mg Physical Exam - Constitutional Appears: No Acute Distress, Chronically Ill - Head Exam Head Exam: ATRAUMATIC, NORMAL INSPECTION - Eye Exam Eye Exam: EOMI - ENT Exam ENT Exam: Mucous Membranes Moist - Respiratory Exam Respiratory Exam: Decreased Breath Sounds. absent: Accessory Muscle Use - Cardiovascular Exam Cardiovascular Exam: REGULAR RHYTHM. absent: Rubs - GI/Abdominal Exam GI & Abdominal Exam: Distended. absent: Guarding - Extremities Exam Extremities exam: Negative for: pedal edema - Neurological Exam Neurological exam: Alert - Psychiatric Exam Psychiatric exam: Agitated Results - Vital Signs Recent Vital Signs: Last Vital Signs Temp 97.4 F L 02/05/19 14:15 Pulse 71 02/05/19 14:15 Resp 16 02/05/19 14:15 BP 114/62 02/05/19 15:15 Pulse Ox 98 02/05/19 14:15 - Labs Result Diagrams: 02/04/19 22:02 02/04/19 22:02 Labs: Laboratory Results - last 24 hr 02/04/19 02/04/19 22:02 22:02 WBC 8.2 RBC 3.04 L Hgb 9.2 L Hct 27.1 L MCV 89.0 MCH 30.1 MCHC 33.9 RDW 15.8 H Plt Count 288 MPV 9.8 Neut % (Auto) 58.7 Lymph % (Auto) 26.6 [place] % (Auto) 8.6 Eos % (Auto) 4.7 H Baso % (Auto) 1.4 Neut # (Auto) 4.8 Lymph # (Auto) 2.2 [place] # (Auto) 0.7 Eos # (Auto) 0.4 Baso # (Auto) 0.1 Sodium 141 Potassium 5.2 Chloride 99 Carbon Dioxide 22 Anion Gap 25 H BUN 82 H Creatinine 17.8 H* D Est GFR ( Amer) 4 Est GFR (Non-Af Amer) 3 Random Glucose 115 H D Calcium 9.3 Total Bilirubin 0.2 AST 14 L ALT 21 D Alkaline Phosphatase 72 Troponin I < 0.0120 Total Protein 7.6 Albumin 4.4 Globulin 3.2 Albumin/Globulin Ratio 1.4 Assessment & Plan - Assessment and Plan (Free Text) Assessment: ESRD, incarcerated, no services for HD in facility Routine HD ordered probable d/c post HD 3 kg UF 2 K bath
[2019-02-05 18:21] VITALS: BP 132/88; PULSE 67; RESP 20; TEMP 98.1; O2SAT 95
--- NOTE | 2019-02-05 20:44 | CP.PCM.HP ---
Past Patient History - Infectious Disease Hx of Infectious Diseases: None - Tetanus Immunizations Tetanus Immunization: Unknown - Past Medical History & Family History Past Medical History?: Yes - Past Social History Smoking Status: Never Smoked - CARDIAC Hx Hypercholesterolemia: Yes Hx Hypertension: Yes - PULMONARY Hx Asthma: Yes - NEUROLOGICAL Hx Neurological Disorder: No - HEENT Hx HEENT Problems: No - RENAL Hx Chronic Kidney Disease: Yes - ENDOCRINE/METABOLIC Hx Endocrine Disorders: No - HEMATOLOGICAL/ONCOLOGICAL Hx Blood Disorders: No - INTEGUMENTARY Hx Dermatological Problems: No - MUSCULOSKELETAL/RHEUMATOLOGICAL Hx Falls: No - GASTROINTESTINAL Hx Gastrointestinal Disorders: No - GENITOURINARY/GYNECOLOGICAL Hx Genitourinary Disorders: No - PSYCHIATRIC Hx Bipolar Disorder: Yes Hx Substance Use: Yes - SURGICAL HISTORY Hx Surgeries: No Other/Comment: LEFT HEAD SURGERY DUE TO INJURY. L hand fistula. R side chest yazmin cath - ANESTHESIA Hx Anesthesia: Yes Hx Anesthesia Reactions: No Meds Allergies/Adverse Reactions: Allergies Allergy/AdvReac Type Severity Reaction Status Date / Time FISH Allergy REDNESS Verified 01/29/19 16:48 Physical Exam - Constitutional Appears: Well - Head Exam Head Exam: ATRAUMATIC, NORMAL INSPECTION, NORMOCEPHALIC - Eye Exam Eye Exam: EOMI, Normal appearance, PERRL Pupil Exam: NORMAL ACCOMODATION, PERRL - ENT Exam ENT Exam: Mucous Membranes Moist, Normal Exam - Neck Exam Neck exam: Positive for: Normal Inspection - Respiratory Exam Respiratory Exam: Decreased Breath Sounds - Cardiovascular Exam Cardiovascular Exam: REGULAR RHYTHM, +S1, +S2 - GI/Abdominal Exam GI & Abdominal Exam: Diminished Bowel Sounds, Soft - Rectal Exam Rectal Exam: Deferred - Neurological Exam Neurological exam: Oriented x3 Results - Vital Signs Recent Vital Signs: Last Vital Signs Temp 98.1 F 02/05/19 18:20 Pulse 67 02/05/19 18:20 Resp 20 02/05/19 18:20 BP 132/88 02/05/19 18:20 Pulse Ox 95 02/05/19 18:20 - Labs Result Diagrams: 02/04/19 22:02 02/04/19 22:02 Labs: Laboratory Results - last 24 hr 02/04/19 02/04/19 02/05/19 22:02 22:02 18:13 WBC 8.2 RBC 3.04 L Hgb 9.2 L Hct 27.1 L MCV 89.0 MCH 30.1 MCHC 33.9 RDW 15.8 H Plt Count 288 MPV 9.8 Neut % (Auto) 58.7 Lymph % (Auto) 26.6 [place] % (Auto) 8.6 Eos % (Auto) 4.7 H Baso % (Auto) 1.4 Neut # (Auto) 4.8 Lymph # (Auto) 2.2 [place] # (Auto) 0.7 Eos # (Auto) 0.4 Baso # (Auto) 0.1 Sodium 141 Potassium 5.2 Chloride 99 Carbon Dioxide 22 Anion Gap 25 H BUN 82 H Creatinine 17.8 H* D Est GFR ( Amer) 4 Est GFR (Non-Af Amer) 3 Random Glucose 115 H D Calcium 9.3 Phosphorus 4.5 Total Bilirubin 0.2 AST 14 L ALT 21 D Alkaline Phosphatase 72 Troponin I < 0.0120 Total Protein 7.6 Albumin 4.4 Globulin 3.2 Albumin/Globulin Ratio 1.4
== END 2019-02-05 21:15 | disposition home or self-care (01) ==
LOC: C.ER 18:41 → C.9E 22:50 → C.5S 23:32
PROVIDERS: ADMIT Internal Medicine Nephrology; ATTEND Internal Medicine Nephrology
DX: I12.0 Hypertensive chronic kidney disease with stage 5 chronic kidney disease or end stage renal disease (principal); N18.6 End stage renal disease; Z99.2 Dependence on renal dialysis; Z87.891 Personal history of nicotine dependence; F60.3 Borderline personality disorder; J45.909 Unspecified asthma, uncomplicated; E78.00 Pure hypercholesterolemia, unspecified; F31.9 Bipolar disorder, unspecified
CPT/HCPCS: 36415; 71045; 80053; 83970; 84100; 84484; 85025; 99282; G0257; G0378; J1940

== ENCOUNTER 2019-02-08 15:27 | Observation (INO) | payer MEDICAID ==
[2019-02-08 15:28] VITALS: BMI 41.5
[2019-02-08 15:43] VITALS: RESP 20
--- NOTE | 2019-02-08 16:53 | C.PDOC ---
History Of Present Illness 28 year old male presents to the emergency department accompanied by corrections office for elective dialysis. Patient has been incarcerated for the last two weeks and has been coming here approximately 3 days per week for dialysis. It is unclear why he has not had an outpatient dialysis set up yet. Patient was seen by me 3 days ago. Time Seen by Provider: 02/08/19 15:36 Chief Complaint (Nursing): Medical Clearance History Per: Patient History/Exam Limitations: no limitations Onset/Duration Of Symptoms: Hrs Past Medical History Reviewed: Historical Data, Nursing Documentation, Vital Signs Vital Signs: Last Vital Signs Temp 98.0 F 02/08/19 15:42 Pulse 74 02/08/19 15:42 Resp 20 02/08/19 15:42 BP 201/119 H 02/08/19 15:42 Pulse Ox 95 02/08/19 15:42 Primary Care Provider: FAMILY PROVIDER,NO - Medical History PMH: Asthma, Bipolar Disorder, HTN, Hypercholesterolemia, End Stage Renal Disease (on dialysis M-W-F), Chronic Kidney Disease Surgical History: No Surg Hx - [facility] Procedures (01/20/19) ASSISTANCE WITH RESPIRATORY VENTILATION, 24-96 HRS, CPAP (01/20/19) BYPASS L RADIAL ART TO LOW ARM VEIN W AUTOL VN, OPEN (07/28/18) CLOSURE SKIN & SUBCUTANEOUS NEC (11/25/01) Family History: States: No Known Family Hx - Social History Hx Tobacco Use: Yes Hx Alcohol Use: No Hx Substance Use: Yes - Immunization History Hx Tetanus Toxoid Vaccination: Yes Hx Influenza Vaccination: No Hx Pneumococcal Vaccination: No Review Of Systems Except As Marked, All Systems Reviewed And Found Negative. Constitutional: Negative for: Fever, Chills Respiratory: Negative for: Cough, Shortness of Breath Gastrointestinal: Negative for: Nausea, Vomiting, Abdominal Pain, Diarrhea Neurological: Negative for: Weakness, Numbness Physical Exam - Physical Exam Appears: Non-toxic, No Acute Distress, Other (obese white male) Skin: Normal Color, Warm, Dry Head: Atraumatic, Normacephalic Eye(s): bilateral: Normal Inspection, PERRL, EOMI Nose: Normal Oral Mucosa: Moist Neck: Normal, Supple Chest: Symmetrical, No Tenderness Cardiovascular: Rhythm Regular, No Murmur Respiratory: Normal Breath Sounds, No Rales, No Rhonchi, No Wheezing Gastrointestinal/Abdominal: Soft, No Tenderness, No Guarding, No Rebound Extremity: Normal ROM Neurological/Psych: Oriented x3, Normal Speech, Normal Cognition ED Course And Treatment O2 Sat by Pulse Oximetry: 95 (RA) Pulse Ox Interpretation: Normal Reevaluation Time: 16:53 Reassessment Condition: Unchanged - Physician Consult Information Outcome Of Conversation: 1645: d/w Dr. Antonietta Seo, ok to Med/Surg Obs. d/w Dr. Araya- Renal Consult, will consult and write HD orders Medical Decision Making Medical Decision Making: chronic ESRD on HD, prisoner M/W this week, missed Sunday ok to adm per Dr. Antonietta Seo, Dr. Araya will consult to write HD orders plan to dispo/d/c after HD today and not stay overnight. Disposition Doctor Will See Patient In The: Hospital Counseled Patient/Family Regarding: Studies Performed, Diagnosis - Disposition Disposition: HOSPITALIZED Disposition Time: 16:52 Condition: GOOD - Clinical Impression Clinical Impression: Dialysis patient - Scribe Statement The provider has reviewed the documentation as recorded by the Scribe (Adams Mckeon) Provider Attestation: All medical record entries made by the Scribe were at my direction and personally dictated by me. I have reviewed the chart and agree that the record accurately reflects my personal performance of the history, physical exam, medical decision making, and the department course for this patient. I have also personally directed, reviewed, and agree with the discharge instructions and disposition.
--- NOTE | 2019-02-08 17:10 | CP.PCM.HP ---
Past Patient History - Infectious Disease Hx of Infectious Diseases: None - Tetanus Immunizations Tetanus Immunization: Unknown - Past Medical History & Family History Past Medical History?: Yes - Past Social History Smoking Status: Former Smoker - CARDIAC Hx Hypercholesterolemia: Yes Hx Hypertension: Yes - PULMONARY Hx Asthma: Yes - NEUROLOGICAL Hx Neurological Disorder: No - HEENT Hx HEENT Problems: No - RENAL Hx Chronic Kidney Disease: Yes - ENDOCRINE/METABOLIC Hx Endocrine Disorders: No - HEMATOLOGICAL/ONCOLOGICAL Hx Blood Disorders: No - INTEGUMENTARY Hx Dermatological Problems: No - MUSCULOSKELETAL/RHEUMATOLOGICAL Hx Falls: No - GASTROINTESTINAL Hx Gastrointestinal Disorders: No - GENITOURINARY/GYNECOLOGICAL Hx Genitourinary Disorders: No - PSYCHIATRIC Hx Bipolar Disorder: Yes Hx Substance Use: Yes - SURGICAL HISTORY Hx Surgeries: Yes Other/Comment: LEFT HEAD SURGERY DUE TO INJURY. L hand AV fistula. R side chest yazmin cath. - ANESTHESIA Hx Anesthesia: Yes Hx Anesthesia Reactions: No Meds Allergies/Adverse Reactions: Allergies Allergy/AdvReac Type Severity Reaction Status Date / Time FISH Allergy REDNESS Verified 01/29/19 16:48 Results - Vital Signs Recent Vital Signs: Last Vital Signs Temp 98.0 F 02/08/19 15:42 Pulse 74 02/08/19 15:42 Resp 20 02/08/19 15:42 BP 201/119 H 02/08/19 15:42 Pulse Ox 95 02/08/19 16:54
[2019-02-08] MEDS ORDERED: Pneumococcal 23-Valent Vaccine IM ONE (17:48)
[2019-02-08 21:52] VITALS: BP 137/76; PULSE 77; TEMP 97.9
[2019-02-08 23:49] VITALS: O2SAT 95
== END 2019-02-08 21:45 | disposition designated cancer center or children's hospital (05) ==
LOC: C.ER 15:27 → C.9E 16:50 → C.3T 17:23
PROVIDERS: ADMIT Internal Medicine Nephrology; ATTEND Internal Medicine Nephrology
DX: N18.6 End stage renal disease (principal); J45.909 Unspecified asthma, uncomplicated; F31.9 Bipolar disorder, unspecified; E78.00 Pure hypercholesterolemia, unspecified; I12.0 Hypertensive chronic kidney disease with stage 5 chronic kidney disease or end stage renal disease; Z99.2 Dependence on renal dialysis; Z87.891 Personal history of nicotine dependence
CPT/HCPCS: 99283; G0257; G0378

== ENCOUNTER 2019-02-13 13:00 | Observation (INO) | payer MEDICAID ==
[2019-02-13 13:08] VITALS: BMI 28.7
--- NOTE | 2019-02-13 15:57 | C.PDOC ---
History Of Present Illness 28 year old male brought to ED from [facility] for dialysis. Patient has had multiple presentations in the past for the same reason. Patient was recently admitted on February 08 . Patient is typically admitted for dialysis and goes back to senior living. Patient denies any physical complaints. Time Seen by Provider: 02/13/19 13:03 Chief Complaint (Nursing): Medical Clearance History Per: Patient History/Exam Limitations: no limitations Onset/Duration Of Symptoms: Other (dialysis) Current Symptoms Are (Timing): Gone Past Medical History Reviewed: Historical Data, Nursing Documentation, Vital Signs Vital Signs: Last Vital Signs Temp 97.4 F L 02/13/19 14:39 Pulse 73 02/13/19 15:06 Resp 18 02/13/19 15:06 BP 174/101 H 02/13/19 15:30 Pulse Ox 97 02/13/19 14:39 Primary Care Provider: Non [facility] Provider, - Medical History PMH: Asthma, Bipolar Disorder, HTN, Hypercholesterolemia, End Stage Renal Disease (on dialysis M-W-F), Chronic Kidney Disease Surgical History: No Surg Hx - [facility] Procedures (01/20/19) ASSISTANCE WITH RESPIRATORY VENTILATION, 24-96 HRS, CPAP (01/20/19) BYPASS L RADIAL ART TO LOW ARM VEIN W AUTOL VN, OPEN (07/28/18) CLOSURE SKIN & SUBCUTANEOUS NEC (11/25/01) Family History: States: Unknown Family Hx - Social History Hx Tobacco Use: Yes Hx Alcohol Use: No Hx Substance Use: Yes - Immunization History Hx Tetanus Toxoid Vaccination: Yes Hx Influenza Vaccination: No Hx Pneumococcal Vaccination: No Review Of Systems Constitutional: Negative for: Fever, Chills, Weakness Cardiovascular: Negative for: Chest Pain Respiratory: Negative for: Cough, Shortness of Breath Gastrointestinal: Negative for: Nausea, Vomiting, Abdominal Pain Neurological: Negative for: Weakness, Numbness, Headache, Dizziness Physical Exam - Physical Exam Appears: Well, Non-toxic, No Acute Distress, Other (bald, white male with multiple tattoos) Skin: Normal Color, Warm, Dry Head: Atraumatic, Normacephalic Neck: Normal ROM, Supple Chest: Symmetrical, No Deformity, Other (dialysis catheter in the right upper chest) Cardiovascular: Rhythm Regular, No Murmur Respiratory: No Accessory Muscle Use, No Rales, No Rhonchi, No Wheezing Gastrointestinal/Abdominal: Soft, No Tenderness, Other (obese) Extremity: Capillary Refill (<2 seconds) Extremity: Bilateral: Atraumatic, Normal Color And Temperature, Normal ROM Neurological/Psych: Oriented x3, Normal Speech, Normal Cognition ED Course And Treatment O2 Sat by Pulse Oximetry: 97 (in RA) Pulse Ox Interpretation: Normal Progress Note: 1410:Discussed case with (aircraft maintenance instructor), who will order dialysis. Disposition Doctor Will See Patient In The: Hospital Counseled Patient/Family Regarding: Studies Performed, Diagnosis - Disposition Disposition: HOSPITALIZED Disposition Time: 15:00 Condition: GOOD - Clinical Impression Clinical Impression: ESRD (end stage renal disease) - Scribe Statement The provider has reviewed the documentation as recorded by the Scribe (Bernie Harmon) All medical record entries made by the Scribe were at my direction and personally dictated by me. I have reviewed the chart and agree that the record accurately reflects my personal performance of the history, physical exam, medical decision making, and the department course for this patient. I have also personally directed, reviewed, and agree with the discharge instructions and disposition.
[2019-02-13 18:20] VITALS: PULSE 64; RESP 16; TEMP 98
[2019-02-13 18:33] LABS: HEPATITIS B SURFACE AG Negative (NEGATIVE)
--- NOTE | 2019-02-13 18:42 | CP.PCM.HP ---
Past Patient History - Infectious Disease Hx of Infectious Diseases: None - Tetanus Immunizations Tetanus Immunization: Unknown - Past Medical History & Family History Past Medical History?: Yes - Past Social History Smoking Status: Former Smoker - CARDIAC Hx Hypercholesterolemia: Yes Hx Hypertension: Yes - PULMONARY Hx Asthma: Yes - NEUROLOGICAL Hx Neurological Disorder: No - HEENT Hx HEENT Problems: No - RENAL Hx Chronic Kidney Disease: Yes - ENDOCRINE/METABOLIC Hx Endocrine Disorders: No - HEMATOLOGICAL/ONCOLOGICAL Hx Blood Disorders: No - INTEGUMENTARY Hx Dermatological Problems: No - MUSCULOSKELETAL/RHEUMATOLOGICAL Hx Falls: No - GASTROINTESTINAL Hx Gastrointestinal Disorders: No - GENITOURINARY/GYNECOLOGICAL Hx Genitourinary Disorders: No - PSYCHIATRIC Hx Bipolar Disorder: Yes Hx Substance Use: Yes - SURGICAL HISTORY Hx Surgeries: Yes Other/Comment: LEFT HEAD SURGERY DUE TO INJURY. L hand AV fistula. R side chest yazmin cath. - ANESTHESIA Hx Anesthesia: Yes Hx Anesthesia Reactions: No Meds Allergies/Adverse Reactions: Allergies Allergy/AdvReac Type Severity Reaction Status Date / Time FISH Allergy REDNESS Verified 01/29/19 16:48 Physical Exam - Constitutional Appears: Well - Head Exam Head Exam: ATRAUMATIC, NORMAL INSPECTION, NORMOCEPHALIC - Eye Exam Eye Exam: EOMI, Normal appearance, PERRL Pupil Exam: NORMAL ACCOMODATION, PERRL - ENT Exam ENT Exam: Mucous Membranes Moist, Normal Exam - Neck Exam Neck exam: Positive for: Normal Inspection - Respiratory Exam Respiratory Exam: Decreased Breath Sounds - Cardiovascular Exam Cardiovascular Exam: REGULAR RHYTHM, +S1, +S2 - GI/Abdominal Exam GI & Abdominal Exam: Diminished Bowel Sounds, Soft - Rectal Exam Rectal Exam: Deferred - Neurological Exam Neurological exam: Oriented x3 Results - Vital Signs Recent Vital Signs: Last Vital Signs Temp 98 F 02/13/19 18:00 Pulse 64 02/13/19 18:00 Resp 16 02/13/19 18:00 BP 168/104 H 02/13/19 18:00 Pulse Ox 100 02/13/19 18:00 - Labs Labs: Laboratory Results - last 24 hr 02/13/19 17:45 Hep Bs Antigen Negative
[2019-02-13 18:51] LABS: HEPATITIS C ANTIBODY NEGATIVE (NEGATIVE)
[2019-02-13 19:19] VITALS: BP 157/89
[2019-02-14 00:37] VITALS: O2SAT 97
== END 2019-02-13 19:30 | disposition home or self-care (01) ==
LOC: C.ER 13:00 → C.9E 13:07 → C.3T 13:26
PROVIDERS: ADMIT Internal Medicine Nephrology; ATTEND Internal Medicine Nephrology
DX: I12.0 Hypertensive chronic kidney disease with stage 5 chronic kidney disease or end stage renal disease (principal); N18.6 End stage renal disease; Z99.2 Dependence on renal dialysis; Z87.891 Personal history of nicotine dependence
CPT/HCPCS: 36415; 86706; 86803; 87340; G0257; G0378

== ENCOUNTER 2019-02-18 11:08 | Observation (INO) | payer MEDICAID ==
[2019-02-18 11:08] VITALS: BMI 28.7
--- NOTE | 2019-02-18 13:47 | C.PDOC ---
History Of Present Illness 28 yo male,w/PMhx of ESRD, brought to ER by correction officers for dialysis. Patient states that he has dialysis on Tuesdays, , and Saturdays. Patient states that his last dialysis was on 02/13/19. He notes that he did not go to dialysis on Sunday 2 days ago because he " did not feel like it." Denies having chest pain, sob, fever,chills, nausea, vomiting, and abdominal pain. Chief Complaint (Nursing): Medical Clearance History Per: Patient History/Exam Limitations: no limitations Past Medical History Reviewed: Historical Data, Nursing Documentation, Vital Signs Vital Signs: Last Vital Signs Temp 97.9 F 02/18/19 11:30 Pulse 67 02/18/19 11:30 Resp 18 02/18/19 11:30 BP 167/96 H 02/18/19 11:30 Pulse Ox 98 02/18/19 11:30 Primary Care Provider: FAMILY PROVIDER,NO - Medical History PMH: Asthma, Bipolar Disorder, HTN, Hypercholesterolemia, End Stage Renal Disease (on dialysis M-W-F), Chronic Kidney Disease Other Surgeries: Hx of surgeries - [facility] Procedures (01/20/19) ASSISTANCE WITH RESPIRATORY VENTILATION, 24-96 HRS, CPAP (01/20/19) BYPASS L RADIAL ART TO LOW ARM VEIN W AUTOL VN, OPEN (07/28/18) CLOSURE SKIN & SUBCUTANEOUS NEC (11/25/01) Family History: States: No Known Family Hx - Social History Hx Tobacco Use: Yes Hx Alcohol Use: No Hx Substance Use: Yes - Immunization History Hx Tetanus Toxoid Vaccination: Yes Hx Influenza Vaccination: No Hx Pneumococcal Vaccination: No Review Of Systems Except As Marked, All Systems Reviewed And Found Negative. Constitutional: Negative for: Fever, Chills Cardiovascular: Negative for: Chest Pain Respiratory: Negative for: Shortness of Breath Gastrointestinal: Negative for: Nausea, Vomiting Physical Exam - Physical Exam Appears: No Acute Distress Skin: Normal Color, Warm, Dry Head: Atraumatic, Normacephalic Eye(s): bilateral: Normal Inspection Oral Mucosa: Moist Neck: Supple Chest: Symmetrical, Other (port dialysis catheter in right upper chest) Cardiovascular: Rhythm Regular Respiratory: Normal Breath Sounds, No Rales, No Rhonchi, No Wheezing Gastrointestinal/Abdominal: Normal Exam, Soft, No Tenderness, No Guarding, No Rebound Neurological/Psych: Oriented x3, Normal Speech ED Course And Treatment O2 Sat by Pulse Oximetry: 98 (RA) Pulse Ox Interpretation: Normal Medical Decision Making Medical Decision Makin:[address]J Seo. Patient will be admitted under the service of Dr. Martin Seo. 13:40 's office contacted. is covering for .Case discussed with . will arrange for dialysis. Disposition - Disposition Disposition: HOSPITALIZED Disposition Time: 13:30 Condition: STABLE - Clinical Impression Clinical Impression: ESRD needing dialysis - Scribe Statement The provider has reviewed the documentation as recorded by the Scribe Elliott Dominguez Provider Attestation: All medical record entries made by the Scribe were at my direction and personally dictated by me. I have reviewed the chart and agree that the record accurately reflects my personal performance of the history, physical exam, medical decision making, and the department course for this patient. I have also personally directed, reviewed, and agree with the discharge instructions and disposition.
[2019-02-18 15:30] VITALS: O2SAT 98
[2019-02-18 16:14] VITALS: RESP 16
--- NOTE | 2019-02-18 16:44 | CP.PCM.HP ---
Past Patient History - Infectious Disease Hx of Infectious Diseases: None - Tetanus Immunizations Tetanus Immunization: Unknown - Past Medical History & Family History Past Medical History?: Yes - Past Social History Smoking Status: Former Smoker - CARDIAC Hx Hypercholesterolemia: Yes Hx Hypertension: Yes - PULMONARY Hx Asthma: Yes - NEUROLOGICAL Hx Neurological Disorder: No - HEENT Hx HEENT Problems: No - RENAL Hx Chronic Kidney Disease: Yes - ENDOCRINE/METABOLIC Hx Endocrine Disorders: No - HEMATOLOGICAL/ONCOLOGICAL Hx Blood Disorders: No - INTEGUMENTARY Hx Dermatological Problems: No - MUSCULOSKELETAL/RHEUMATOLOGICAL Hx Falls: No - GASTROINTESTINAL Hx Gastrointestinal Disorders: No - GENITOURINARY/GYNECOLOGICAL Hx Genitourinary Disorders: No - PSYCHIATRIC Hx Bipolar Disorder: Yes Hx Substance Use: Yes - SURGICAL HISTORY Hx Surgeries: Yes Other/Comment: LEFT HEAD SURGERY DUE TO INJURY. L hand AV fistula. R side chest yazmin cath. - ANESTHESIA Hx Anesthesia: Yes Hx Anesthesia Reactions: No Meds Allergies/Adverse Reactions: Allergies Allergy/AdvReac Type Severity Reaction Status Date / Time FISH Allergy REDNESS Verified 01/29/19 16:48 Physical Exam - Constitutional Appears: Well - Head Exam Head Exam: ATRAUMATIC, NORMAL INSPECTION, NORMOCEPHALIC - Eye Exam Eye Exam: EOMI, Normal appearance, PERRL Pupil Exam: NORMAL ACCOMODATION, PERRL - ENT Exam ENT Exam: Mucous Membranes Moist, Normal Exam - Neck Exam Neck exam: Positive for: Normal Inspection - Respiratory Exam Respiratory Exam: Decreased Breath Sounds - Cardiovascular Exam Cardiovascular Exam: REGULAR RHYTHM, +S1, +S2 - GI/Abdominal Exam GI & Abdominal Exam: Diminished Bowel Sounds, Soft - Rectal Exam Rectal Exam: Deferred - Neurological Exam Neurological exam: Oriented x3 Results - Vital Signs Recent Vital Signs: Last Vital Signs Temp 97.9 F 02/18/19 16:07 Pulse 63 02/18/19 16:07 Resp 16 02/18/19 16:07 BP 201/119 H 02/18/19 16:07 Pulse Ox 98 02/18/19 15:41
[2019-02-18 18:51] VITALS: BP 162/100; PULSE 67; TEMP 97.2
== END 2019-02-18 19:05 | disposition home or self-care (01) ==
LOC: C.ER 11:08 → C.3T 13:48
PROVIDERS: ADMIT Internal Medicine Nephrology; ATTEND Internal Medicine Nephrology
DX: I12.0 Hypertensive chronic kidney disease with stage 5 chronic kidney disease or end stage renal disease (principal); N18.6 End stage renal disease; J45.909 Unspecified asthma, uncomplicated; F31.9 Bipolar disorder, unspecified; E78.00 Pure hypercholesterolemia, unspecified; Z91.15 Patient's noncompliance with renal dialysis; Z99.2 Dependence on renal dialysis; Z87.891 Personal history of nicotine dependence
CPT/HCPCS: 99283; G0257; G0378

== ENCOUNTER 2019-02-26 06:43 | Emergency (ER) | payer MEDICAID ==
[2019-02-26 06:44] VITALS: BMI 28.7
--- NOTE | 2019-02-26 08:05 | C.PDOC ---
History Of Present Illness 28 y/o male,w/PMhx of HTN and ESRD, brought to ER by ambulance requesting dialysis. Patient states that his last dialysis session was 8 days ago on Sunday. 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 He notes that he has mild shortness of breath.Otherwise, patient denies having CP, fever,chills, nausea, and vomiting. Time Seen by Provider: 02/26/19 07:30 Chief Complaint (Nursing): Medical Clearance History Per: Patient History/Exam Limitations: no limitations Onset/Duration Of Symptoms: Days Current Symptoms Are (Timing): Still Present Severity: Mild Reports Recently: Seen In ED, Treated By A Physician Past Medical History Reviewed: Historical Data, Nursing Documentation, Vital Signs Vital Signs: Last Vital Signs Temp 98.2 F 02/26/19 06:49 Pulse 96 H 02/26/19 06:49 Resp 18 02/26/19 06:49 BP 120/68 02/26/19 06:49 Pulse Ox 97 02/26/19 06:49 Primary Care Provider: Non [facility] Provider, - Medical History PMH: Asthma, Bipolar Disorder, HTN, Hypercholesterolemia, End Stage Renal Disease (on dialysis M-W-F), Chronic Kidney Disease Other Surgeries: Hx of surgeries. dialysis catheter in right chest - [facility] Procedures (01/20/19) ASSISTANCE WITH RESPIRATORY VENTILATION, 24-96 HRS, CPAP (01/20/19) BYPASS L RADIAL ART TO LOW ARM VEIN W AUTOL VN, OPEN (07/28/18) CLOSURE SKIN & SUBCUTANEOUS NEC (11/25/01) Family History: States: No Known Family Hx - Social History Hx Tobacco Use: Yes Hx Alcohol Use: No Hx Substance Use: Yes - Immunization History Hx Tetanus Toxoid Vaccination: Yes Hx Influenza Vaccination: No Hx Pneumococcal Vaccination: No Review Of Systems Except As Marked, All Systems Reviewed And Found Negative. Constitutional: Negative for: Fever, Chills Cardiovascular: Negative for: Chest Pain Respiratory: Positive for: Shortness of Breath Gastrointestinal: Negative for: Nausea, Vomiting, Abdominal Pain Physical Exam - Physical Exam Appears: Unkempt, Other (unkempt,smelly) Skin: Normal Color, Warm, Dry Head: Atraumatic, Normacephalic Eye(s): bilateral: Normal Inspection Nose: Normal Oral Mucosa: Moist Neck: Supple Chest: Symmetrical Cardiovascular: Rhythm Regular Respiratory: Normal Breath Sounds, No Rales, No Rhonchi, No Wheezing Gastrointestinal/Abdominal: Normal Exam, Soft, No Tenderness, No Guarding, No Rebound Neurological/Psych: Oriented x3, Normal Speech Gait: Steady ED Course And Treatment - Laboratory Results Result Diagrams: 02/26/19 08:32 02/26/19 08:32 Lab Interpretation: Abnormal ECG: Interpreted By Me ECG Rhythm: Sinus Rhythm ECG Interpretation: No Acute Changes Rate From EC O2 Sat by Pulse Oximetry: 97 (RA) Pulse Ox Interpretation: Normal Progress Note: Case discussed with Dr.J Seo. Patient will be placed in OBS under the service of Dr. Martin Seo for dialysis. Dr Seo will consult Dr Butler Reassessment Condition: Unchanged - Physician Consult Information Physician Contacted: Rony Seo Outcome Of Conversation: OBS for dialysis Disposition Discussed With Dr.: Rony Seo Doctor Will See Patient In The: Hospital Counseled Patient/Family Regarding: Diagnosis, Need For Followup - Disposition Disposition: AGAINST MEDICAL ADVICE Disposition Time: 08:35 Condition: STABLE Forms: [facility] (Yakut) - POA Present On Arrival: None - Clinical Impression Clinical Impression: ESRD (end stage renal disease), ESRD needing dialysis, Dyspnea, HTN (h ypertension) - PA / DIRECTOR OF RELIGIOUS LIFE / Resident Statement MD/DO has reviewed & agrees with the documentation as recorded. - Scribe Statement The provider has reviewed the documentation as recorded by the Scribe Elliott Dominguez Provider Attestation All medical record entries made by the Scribe were at my direction and personally dictated by me. I have reviewed the chart and agree that the record accurately reflects my personal performance of the history, physical exam, medical decision making, and the department course for this patient. I have also personally directed, reviewed, and agree with the discharge instructions and disposition. Decision To Admit - Pt Status Changed To: Hospital Disposition Of: Observation - . Bed Request Type: Regular Admitting Physician: Rony Seo Patient Diagnosis: ESRD (end stage renal disease), ESRD needing dialysis, Dyspnea, HTN (hypertension)
[2019-02-26 08:43] LABS: BASO # 0.1 K/uL (0.0-0.2); BASO % 0.8 % (0.0-2.0); EOS # 0.2 K/uL (0.0-0.7); EOS % 2.6 % (0.0-4.0); LYMPH # 1.3 K/uL (1.0-4.3); LYMPH % 16.8 % (20.0-40.0); MEAN CELL VOLUME 89.7 fL (80.0-94.0); MEAN CORPUSCULAR HEMOGLOBIN 30.5 pg (27.0-31.0); MEAN PLATELET VOLUME 11.5 fL (7.2-11.7); MONO # 0.6 K/uL (0.0-0.8); MONO % 8.5 % (0.0-10.0); NEUT # 5.4 K/uL (1.8-7.0); NEUT % 71.3 % (50.0-75.0); RBC 2.36 Mil/uL (4.40-5.90); RED CELL DISTRIBUTION WIDTH 14.4 % (11.5-14.5); WHITE BLOOD COUNT 7.5 K/uL (4.8-10.8)
[2019-02-26 08:48] LABS: HEMOGLOBIN 7.2 g/dL (12.0-18.0)
[2019-02-26 09:48] LABS: ALB/GLOB RATIO 1.4 (1.0-2.1); ALBUMIN 4.3 g/dL (3.5-5.0); CALCIUM 8.5 mg/dl (8.6-10.4)
[2019-02-26 11:42] VITALS: BP 177/111; PULSE 70; RESP 16; TEMP 98.1
[2019-02-26 15:30] VITALS: O2SAT 97
[2019-02-27] MEDS ORDERED: Multivitamin Vitamin B Complex (Nephro-Vite) Tab PO SCH (08:00)
--- NOTE | 2019-03-01 12:55 | CARD ---
APPROVED REPORT Date of service: 02/26/2019 EKG Measurement Heart [id number] <Conclusion> Normal sinus rhythm Normal ECG
== END 2019-02-26 12:00 | disposition left against medical advice (07) ==
LOC: C.ER 06:43 → UNDOADMOB 08:31 → C.9E 08:31 → C.ER 12:00
DX: I12.0 Hypertensive chronic kidney disease with stage 5 chronic kidney disease or end stage renal disease (principal); N18.6 End stage renal disease; Z99.2 Dependence on renal dialysis

== ENCOUNTER 2019-02-26 21:43 | Inpatient (IN) | payer MEDICAID ==
[2019-02-26 21:44] VITALS: BMI 28.7
[2019-02-26] MEDS ORDERED: Aspirin 325 mg EC Tablets PO STA (22:25)
--- NOTE | 2019-02-26 22:25 | C.PDOC ---
History Of Present Illness Patient presents to ED with complaint of chest pain and SOB for the past 8 days. Patient has dialysis Sunday, , and Sunday, but was incarcerated and had his last dialysis 1 week ago. He denies fever, chills, nausea, and vomiting. Time Seen by Provider: 02/26/19 22:24 Chief Complaint (Nursing): Chest Pain History Per: Patient History/Exam Limitations: no limitations Onset/Duration Of Symptoms: Days (8) Current Symptoms Are (Timing): Still Present Context: Other Severity: Moderate Pain Scale Rating Of: 5 Quality: Dull, Tightness Associated Symptoms: Dyspnea. denies: Nausea Modifying Factors: None Exacerbating Factors: None Alleviating Factors: None Recent travel outside of the [place]: No Additional History Per: Patient Past Medical History Reviewed: Historical Data, Nursing Documentation, Vital Signs Vital Signs: Last Vital Signs Temp 98.4 F 02/26/19 21:55 Pulse 96 H 02/26/19 21:55 Resp 30 H 02/26/19 21:55 BP 186/116 H 02/26/19 21:55 Pulse Ox 95 02/26/19 21:55 Primary Care Provider: Clinic,Med Surg - Medical History PMH: Asthma, Bipolar Disorder, HTN, Hypercholesterolemia, End Stage Renal Disease (on dialysis M-W-F), Chronic Kidney Disease Surgical History: No Surg Hx - [facility] (01/20/19) ASSISTANCE WITH RESPIRATORY VENTILATION, 24-96 HRS, CPAP (01/20/19) BYPASS L RADIAL ART TO LOW ARM VEIN W AUTOL VN, OPEN (07/28/18) CLOSURE SKIN & SUBCUTANEOUS NEC (11/25/01) Family History: States: Unknown Family Hx - Social History Hx Tobacco Use: Yes Hx Alcohol Use: No Hx Substance Use: Yes - Immunization History Hx Tetanus Toxoid Vaccination: Yes Hx Influenza Vaccination: No Hx Pneumococcal Vaccination: No Review Of Systems Constitutional: Negative for: Fever, Chills, Weakness Eyes: Negative for: Vision Change ENT: Negative for: Throat Pain Cardiovascular: Positive for: Chest Pain. Negative for: Palpitations Respiratory: Positive for: Shortness of Breath, SOB with Excertion. Negative for: Cough Gastrointestinal: Negative for: Nausea, Vomiting, Abdominal Pain Musculoskeletal: Negative for: Back Pain Skin: Negative for: Rash Neurological: Negative for: Weakness, Numbness Psych: Negative for: Anxiety Physical Exam - Physical Exam Appears: Non-toxic, Other (in moderate discomfort) Skin: Warm, Dry Head: Normacephalic Eye(s): bilateral: Normal Inspection Oral Mucosa: Moist Neck: Trachea Midline, Supple Chest: Symmetrical, No Tenderness, Other (dialysis catheter to the right chest wall) Cardiovascular: Rhythm Regular Respiratory: No Accessory Muscle Use, Rales (at the bases bilaterally), No Rhonchi, No Wheezing Gastrointestinal/Abdominal: Bowel Sounds (normoactive), Soft, No Tenderness, No Distention Back: No CVA Tenderness Extremity: No Tenderness, Capillary Refill <2 Sec Extremity: Bilateral: Atraumatic, Normal Color And Temperature, Normal ROM Pulses: Left Dorsalis Pedis: Normal, Right Dorsalis Pedis: Normal Neurological/Psych: Oriented x3, Normal Speech, Normal Cognition Gait: Steady ED Course And Treatment - Laboratory Results Result Diagrams: 02/26/19 22:51 02/26/19 22:51 ECG: Interpreted By Me, Viewed By Me ECG Rhythm: Sinus Rhythm (84), Nonspecific Changes O2 Sat by Pulse Oximetry: 95 (in RA) Pulse Ox Interpretation: Normal - Radiology CXR: Interpreted by Me, Viewed By Me CXR Interpretation: Yes: Cardiomegaly, Other (chf, right IJ HD catheter in place). No: Infiltrates, Fracture Progress Note: 11:30 PM Placed call to Nephrology for stat HD. 11:[address] anne - will arrange for emeregent HD Critical Care Time - Critical Care Note Total Time (in mins): 30 Documented critical care: time excludes all time spent performing seperately billable procedures. Disposition Discussed With : Rony Seo Comment: accepted the pt on his service and took over the care at 11:55PM Doctor Will See Patient In The: Hospital Counseled Patient/Family Regarding: Studies Performed, Diagnosis - Disposition Disposition: HOSPITALIZED Disposition Time: 22:25 Condition: GUARDED Forms: [facility] (Pashto) - POA Present On Arrival: None - Clinical Impression Clinical Impression: Chest pain, CHF (congestive heart failure), Noncompliance with renal dialysis, ESRD needing dialysis, Hyperkalemia - Scribe Statement The provider has reviewed the documentation as recorded by the Scribe (Bernie Harmon) All medical record entries made by the Scribe were at my direction and persona lly dictated by me. I have reviewed the chart and agree that the record accurately reflects my personal performance of the history, physical exam, medical decision making, and the department course for this patient. I have also personally directed, reviewed, and agree with the discharge instructions and disposition. Decision To Admit - Pt Status Changed To: Hospital Disposition Of: Inpatient - Admit Certification Admit to Inpatient:: After my assessment, the patient will require hospitalization for at least two midnights. This is because of the severity of symptoms shown, intensity of services needed, and/or the medical risk in this patient being treated as an outpatient. - InPatient: Physician Admission Certification: I certify that this patient requires 2 or more midnights of care for the following reason:: After my assessment, the patient will require hospitalization for at least two midnights. This is because of the severity of symptoms shown, intensity of services needed, and/or the medical risk in this patient being treated as an outpatient. - . Bed Request Type: Telemetry Admitting Physician: Rony Seo Patient Diagnosis: Chest pain, CHF (congestive heart failure), Noncompliance with renal dialysis, ESRD needing dialysis, Hyperkalemia
[2019-02-26 22:55] LABS: BASO % 0.2 % (0.0-2.0); EOS # 0.2 K/uL (0.0-0.7); EOS % 2.8 % (0.0-4.0); HEMOGLOBIN 7.4 g/dL (12.0-18.0); LYMPH # 1.8 K/uL (1.0-4.3); LYMPH % 22.8 % (20.0-40.0); MEAN CELL VOLUME 90.3 fL (80.0-94.0); MEAN CORPUSCULAR HEMOGLOBIN 30.7 pg (27.0-31.0); MEAN PLATELET VOLUME 10.8 fL (7.2-11.7); MONO # 0.7 K/uL (0.0-0.8); MONO % 9.6 % (0.0-10.0); NEUT % 64.6 % (50.0-75.0); RBC 2.42 Mil/uL (4.40-5.90); RED CELL DISTRIBUTION WIDTH 14.7 % (11.5-14.5); WHITE BLOOD COUNT 7.8 K/uL (4.8-10.8)
[2019-02-26 23:09] LABS: INR 1.2; PARTIAL THROMBOPLASTIN TIME 35.4 SECONDS (21-34); PROTHROMBIN TIME 13.1 SECONDS (9.7-12.2)
[2019-02-26 23:20] LABS: TROPONIN I 0.022 ng/mL (0.00-0.120)
[2019-02-26 23:28] LABS: ALB/GLOB RATIO 1.4 (1.0-2.1); ALBUMIN 4.5 g/dL (3.5-5.0); CALCIUM 8.8 mg/dl (8.6-10.4)
[2019-02-26] MEDS ORDERED: Calcium Gluconate 4.65 MEQ in Dextrose 5% In Water 100 ML IVPB ONE (23:34)
[2019-02-26] MEDS ORDERED: (Novolin R) Insulin Human Regular 100 units/ml vial IVP ONE (23:55)
[2019-02-26] MEDS ORDERED: Dextrose 50% SYRINGE Inj (50 ml) IV STA (23:55)
[2019-02-27] MEDS ORDERED: Calcium Gluconate 4.65 mEq/10 ml Inj ONE (00:06)
[2019-02-27] MEDS ORDERED: Dextrose 50% SYRINGE Inj (50 ml) ONE (00:07)
[2019-02-27] MEDS ORDERED: Albuterol 0.083% Inhal Sol (2.5 mg/3 mL) UD ONE (00:09)
[2019-02-27] MEDS ORDERED: (Novolin R) Insulin Human Regular 100 units/ml vial ONE (00:09)
[2019-02-27] MEDS ORDERED: Dextrose 50% SYRINGE Inj (50 ml) IV STA (00:15)
[2019-02-27] MEDS ORDERED: Albuterol 0.083% Inhal Sol (2.5 mg/3 mL) UD INH STA ×2 (00:20→00:40)
--- NOTE | 2019-02-27 09:10 | RAD ---
Chest x-ray single frontal view HISTORY: Chest pain. COMPARISON: 02/04/2019 Findings: Right central venous catheter tip extending to the right atrium. Moderate venous congestion. Bilateral hilar prominence. Cardiomegaly. Degenerative changes in the spine. Impression: Right central venous catheter tip extending to the right atrium. Moderate venous congestion. Bilateral hilar prominence. Cardiomegaly.
--- NOTE | 2019-02-27 10:08 | CP.PCM.CON ---
History of Present Illness - History of Present Illness History of Present Illness: Patient presents to ED with complaint of chest pain and SOB for the past 8 days. Patient has dialysis Sunday, , and Sunday, but was incarcerated and had his last dialysis 1 week ago. He denies fever, chills, nausea, and vomiting. PMH: ESRD NEPHROSCLEROSIS HTN BIPOLAR DISORDER PSH- PERMCATHS SOCIAL- + ILLICIT DRUG USE + ETOH ABUSE _ SMOKING FH- UNKNOWN Review of Systems - Review of Systems Systems not reviewed;Unavailable: Uncooperative Past Patient History - Infectious Disease Hx of Infectious Diseases: None - Tetanus Immunizations Tetanus Immunization: Unknown - Past Medical History & Family History Past Medical History?: Yes - Past Social History Smoking Status: Light Smoker < 10 Cigarettes Daily Alcohol: Occasional Home Situation {Lives}: Other (INCARCERATED) - CARDIAC Hx Hypercholesterolemia: Yes Hx Hypertension: Yes - PULMONARY Hx Asthma: Yes - NEUROLOGICAL Hx Neurological Disorder: No - HEENT Hx HEENT Problems: No - RENAL Hx Chronic Kidney Disease: Yes - ENDOCRINE/METABOLIC Hx Endocrine Disorders: No - HEMATOLOGICAL/ONCOLOGICAL Hx Blood Disorders: No - INTEGUMENTARY Hx Dermatological Problems: No - MUSCULOSKELETAL/RHEUMATOLOGICAL Hx Falls: No - GASTROINTESTINAL Hx Gastrointestinal Disorders: No - GENITOURINARY/GYNECOLOGICAL Hx Genitourinary Disorders: No - PSYCHIATRIC Hx Substance Use: Yes - SURGICAL HISTORY Hx Surgeries: Yes Other/Comment: LEFT HEAD SURGERY DUE TO INJURY. L hand AV fistula. R side chest yazmin cath. - ANESTHESIA Hx Anesthesia: Yes Hx Anesthesia Reactions: No Meds Allergies/Adverse Reactions: Allergies Allergy/AdvReac Type Severity Reaction Status Date / Time FISH Allergy REDNESS Verified 02/26/19 22:03 - Medications Medications: Current Medications Acetaminophen (Tylenol 325mg Tab) 650 mg PO Q6H PRN PRN Reason: Headache Last Admin: 02/27/19 09:14 Dose: 650 mg Amlodipine Besylate (Norvasc) 10 mg PO DAILY [facility] Last Admin: 02/27/19 09:15 Dose: 10 mg Clonidine HCl (Catapres) 0.2 mg PO DAILY [facility] Last Admin: 02/27/19 09:15 Dose: 0.2 mg Hydralazine HCl (Apresoline) 50 mg PO Q8 [facility] Last Admin: 02/27/19 06:00 Dose: Not Given Losartan Potassium (Cozaar) 50 mg PO DAILY [facility] Last Admin: 02/27/19 09:16 Dose: 50 mg Physical Exam - Constitutional Appears: Unkempt, Chronically Ill - Head Exam Head Exam: ATRAUMATIC, NORMAL INSPECTION - Eye Exam Eye Exam: EOMI, Normal appearance - Neck Exam Neck exam: Positive for: Normal Inspection. Negative for: Tenderness - Respiratory Exam Respiratory Exam: Rhonchi, NORMAL BREATHING PATTERN - Cardiovascular Exam Cardiovascular Exam: REGULAR RHYTHM, +S1 - GI/Abdominal Exam GI & Abdominal Exam: Soft. absent: Tenderness - Extremities Exam Extremities exam: Positive for: normal inspection. Negative for: tenderness - Neurological Exam Neurological exam: Altered - Skin Skin Exam: Dry, Warm Results - Vital Signs Recent Vital Signs: Last Vital Signs Temp 98.7 F 02/27/19 08:13 Pulse 94 H 02/27/19 08:13 Resp 20 02/27/19 08:13 BP 178/101 H 02/27/19 08:13 Pulse Ox 98 02/27/19 08:13 - Labs Result Diagrams: 02/26/19 22:51 02/26/19 22:51 Labs: Laboratory Results - last 24 hr 02/26/19 02/26/19 02/26/19 22:51 22:51 22:51 WBC 7.8 RBC 2.42 L Hgb 7.4 L Hct 21.9 L MCV 90.3 MCH 30.7 MCHC 34.0 RDW 14.7 H Plt Count 171 MPV 10.8 Neut % (Auto) 64.6 Lymph % (Auto) 22.8 [place] % (Auto) 9.6 Eos % (Auto) 2.8 Baso % (Auto) 0.2 Neut # (Auto) 5.0 Lymph # (Auto) 1.8 [place] # (Auto) 0.7 Eos # (Auto) 0.2 Baso # (Auto) 0.0 PT 13.1 H INR 1.2 APTT 35.4 H Sodium 139 Potassium 7.6 H* Chloride 99 Carbon Dioxide 15 L Anion Gap 33 H BUN 133 H* Creatinine 24.3 H* Est GFR ( Amer) 3 Est GFR (Non-Af Amer) 2 Random Glucose 80 D Calcium 8.8 Total Bilirubin 0.4 AST 15 L ALT 26 Alkaline Phosphatase 60 Troponin I 0.0220 NT-Pro-B Natriuret Pep 18538 H Total Protein 7.7 Albumin 4.5 Globulin 3.3 Albumin/Globulin Ratio 1.4 Assessment & Plan (1) Bipolar 1 disorder Status: Acute (2) Dialysis patient, noncompliant Status: Acute (3) ESRD needing dialysis Status: Acute (4) Hyperkalemia Status: Acute (5) Bipolar disorder Status: Acute (6) ESRD (end stage renal disease) Status: Acute (7) Hypertensive chronic kidney disease with stage 5 chronic kidney disease or end stage renal disease Status: Acute - Assessment and Plan (Free Text) Plan: post [facility]ERGENT DIALYSIS repeat dialysis due to uremia
[2019-02-27 14:54] VITALS: RESP 20
--- NOTE | 2019-02-27 15:02 | CP.PCM.HP ---
Past Patient History - Infectious Disease Hx of Infectious Diseases: None - Tetanus Immunizations Tetanus Immunization: Unknown - Past Medical History & Family History Past Medical History?: Yes - Past Social History Smoking Status: Light Smoker < 10 Cigarettes Daily Alcohol: Occasional Home Situation {Lives}: Other (INCARCERATED) - CARDIAC Hx Hypercholesterolemia: Yes Hx Hypertension: Yes - PULMONARY Hx Asthma: Yes - NEUROLOGICAL Hx Neurological Disorder: No - HEENT Hx HEENT Problems: No - RENAL Hx Chronic Kidney Disease: Yes - ENDOCRINE/METABOLIC Hx Endocrine Disorders: No - HEMATOLOGICAL/ONCOLOGICAL Hx Blood Disorders: No - INTEGUMENTARY Hx Dermatological Problems: No - MUSCULOSKELETAL/RHEUMATOLOGICAL Hx Falls: No - GASTROINTESTINAL Hx Gastrointestinal Disorders: No - GENITOURINARY/GYNECOLOGICAL Hx Genitourinary Disorders: No - PSYCHIATRIC Hx Substance Use: Yes - SURGICAL HISTORY Hx Surgeries: Yes Other/Comment: LEFT HEAD SURGERY DUE TO INJURY. L hand AV fistula. R side chest yazmin cath. - ANESTHESIA Hx Anesthesia: Yes Hx Anesthesia Reactions: No Meds Allergies/Adverse Reactions: Allergies Allergy/AdvReac Type Severity Reaction Status Date / Time FISH Allergy REDNESS Verified 02/26/19 22:03 Physical Exam - Constitutional Appears: Well - Head Exam Head Exam: ATRAUMATIC, NORMAL INSPECTION, NORMOCEPHALIC - Eye Exam Eye Exam: EOMI, Normal appearance, PERRL Pupil Exam: NORMAL ACCOMODATION, PERRL - ENT Exam ENT Exam: Mucous Membranes Moist, Normal Exam - Neck Exam Neck exam: Positive for: Normal Inspection - Respiratory Exam Respiratory Exam: Decreased Breath Sounds - Cardiovascular Exam Cardiovascular Exam: REGULAR RHYTHM, +S1, +S2 - GI/Abdominal Exam GI & Abdominal Exam: Diminished Bowel Sounds, Soft - Rectal Exam Rectal Exam: Deferred - Neurological Exam Neurological exam: Oriented x3 Results - Vital Signs Recent Vital Signs: Last Vital Signs Temp 97.5 F L 02/27/19 13:25 Pulse 79 02/27/19 13:25 Resp 20 02/27/19 13:25 BP 131/75 02/27/19 14:30 Pulse Ox 97 02/27/19 13:25 - Labs Result Diagrams: 02/26/19 22:51 02/26/19 22:51 Labs: Laboratory Results - last 24 hr 02/26/19 02/26/19 02/26/19 22:51 22:51 22:51 WBC 7.8 RBC 2.42 L Hgb 7.4 L Hct 21.9 L MCV 90.3 MCH 30.7 MCHC 34.0 RDW 14.7 H Plt Count 171 MPV 10.8 Neut % (Auto) 64.6 Lymph % (Auto) 22.8 [place] % (Auto) 9.6 Eos % (Auto) 2.8 Baso % (Auto) 0.2 Neut # (Auto) 5.0 Lymph # (Auto) 1.8 [place] # (Auto) 0.7 Eos # (Auto) 0.2 Baso # (Auto) 0.0 PT 13.1 H INR 1.2 APTT 35.4 H Sodium 139 Potassium 7.6 H* Chloride 99 Carbon Dioxide 15 L Anion Gap 33 H BUN 133 H* Creatinine 24.3 H* Est GFR ( Amer) 3 Est GFR (Non-Af Amer) 2 Random Glucose 80 D Calcium 8.8 Total Bilirubin 0.4 AST 15 L ALT 26 Alkaline Phosphatase 60 Troponin I 0.0220 NT-Pro-B Natriuret Pep 02894 H Total Protein 7.7 Albumin 4.5 Globulin 3.3 Albumin/Globulin Ratio 1.4
[2019-02-27 17:49] VITALS: TEMP 98.5; O2SAT 96
[2019-02-27 17:57] VITALS: BP 144/81; PULSE 73
--- NOTE | 2019-02-27 18:38 | CP.PCM.PCO ---
Physician Communication Note - Physician Communication Note Physician Communication Note: patient signed out agaist medical advice
[2019-02-27] MEDS ORDERED: Albuterol 0.083% Inhal Sol (2.5 mg/3 mL) UD INH PRN (23:55)
--- NOTE | 2019-02-28 14:00 | CARD ---
APPROVED REPORT Date of service: 02/26/2019 EKG Measurement Heart [id number] <Conclusion> Normal sinus rhythm Normal ECG
== END 2019-02-27 18:45 | disposition left against medical advice (07) | DRG 127 ==
LOC: C.ER 21:43 → C.6T 23:54
PROVIDERS: ADMIT Internal Medicine Nephrology; ATTEND Internal Medicine Nephrology
PROC: 5A1D70Z Performance of Urinary Filtration, Intermittent, Less than 6 Hours Per Day (ICD-10-PCS; principal; 2019-02-27)
DX: I13.2 Hypertensive heart and chronic kidney disease with heart failure and with stage 5 chronic kidney disease, or end stage renal disease (principal); E87.5 Hyperkalemia; I50.9 Heart failure, unspecified; N18.6 End stage renal disease; Z91.15 Patient's noncompliance with renal dialysis; J45.909 Unspecified asthma, uncomplicated; F31.9 Bipolar disorder, unspecified; E78.00 Pure hypercholesterolemia, unspecified; Z99.2 Dependence on renal dialysis; Z87.891 Personal history of nicotine dependence